=== PATIENT | male | born 1945 | race Caucasian/White ===

== ENCOUNTER 2018-08-23 11:15 | Emergency (ER) | payer MEDICARE, OTHER, SELFPAY ==
[2018-08-23 12:05] VITALS: BP 149/84; PULSE 81; RESP 16; TEMP 37; O2SAT 96
--- NOTE | 2018-08-23 13:09 | DI.RAD_ITS ---
SYMPTOMS/DIAGNOSIS: FALL ONTO OUTSTRETCHED HAND, ? DISLOCATION LEFT SHOULDER: Four views were obtained. There is a comminuted fracture of the proximal humerus with moderate angulation and moderate displacement at the fracture site. No additional fracture seen, although the glenoid labrum is not ideally visualized. No glenohumeral dislocation identified.
--- NOTE | 2018-08-23 13:09 | W.ED.GENAD ---
Discharge Plan Disposition Patient Disposition: HOME Condition: Fair Discharge Details Chief Complaint: Orthopedic Clinical Impression: Fracture, humerus closed Primary Care Provider: None,None ED Provider: Geovanna Laura Home Meds and New Rx's Prescriptions: New oxycodone 5 mg tablet 5 mg PO Q6H Qty: 7 RF: 0 Continued aspirin 325 MG tablet 1 tab PO DAILY RF: 0 simvastatin 20 MG tablet 1 tab PO DAILY RF: 0 metformin [Glucophage] 1,000 MG tablet 1 tab PO BID RF: 0 [id number] 1 EACH capsule 1 cap PO PRN PRNRF: 0 Discharge Instructions Instructions: Proximal Humerus Fracture (ED) Additional Instructions: Encourage rest, ice. Continue with sling until evaluated by orthopedics. Please call orthopedics today to schedule follow-up appointment. Oxycodone as prescribed. Please take this medication only as prescribed, keep this in a safe place. If you develop new or worsening symptoms seek care urgently once again. Referrals: Schuyler Ceja MD [ [facility] STAFF PHYSICIAN] - ([phone]) Discharge Data Discharge Date/Time-TO BE ENTERED AT DEPARTURE: 08/23/18 14:42 Medical Decision Making Patient is a 72 year old RHD male, presenting today with c/c of left shoulder pain that has been present for the past week since [facility]. Denies other injury at the time of the incdient. Has noted a lump on the anterior aspect of the left shoulder since his fall 7 days ago. Reports the pain is been persistent. He is kept the shoulder in a sling. Denies any altered sensation. Patient has never had surgery in the shoulder, no previous injury On exam, patient has large amount of ecchymosis over the left anterior upper extremity. Full range of motion the elbow and wrist. 5 out of 5 order processor strength. Patient appears to be dislocated anteriorly. Unable to range the shoulder. Plan to obtain imaging. Will give Tylenol to help with discomfort XR signfiicant for a displaced fracture of the humerus. I discussed these images with Dr. Ceja. On exam, I was concerned for palpable bony abnormality anteriorly concerning for humeral head dislocation. She requested CT for further evaluation and to ensure that the humeral head and glenoid are lining well. CT obtained and reviewed by radiologist. He advised that the humeral head and the glenoid articulating well although the fracture is quite displaced and comminuted. Discussed these findings with Dr. Ceja who advised the patient may be in a sling and follow-up with him in the office next week. Discussed these plans with the patient who is in agreement. I encouraged rest and ice to the affected area. He will be prescribed narcotics to help with his discomfort as the Tylenol and ibuprofen has not been working well for him at home. Did advise he cannot drive will take these medications. We discussed the risks associated with these medications and he did sign an opiate form. All of his questions and concerns were addressed and he is in agreement this plan HPI General Mode of arrival: ambulatory. Date/Time Provider Initiated Documentation: 08/23/18 12:57. Limitations to Documentation: no limitations. Information obtained by: patient. History of Present Illness 72 year old M presents to the emergency department with the chief complaint of left shoulder pain, described as moderate, with intensity rated at 8. Quality is described as aching, and is localized to the left and upper extremity. Patient reports no radiation. Patient started experiencing this week(s) (1) and it has been constant. Immobilization improves symptom(s), Movement worsens symptoms . Patient notes denies chest pain, cough, fever/chills, headaches, nausea/vomiting and rash. Patient did receive the following treatments prior to arrival, NSAID Related Data Home Medications Medication Instructions Recorded Confirmed aspirin 1 tab PO DAILY 03/25/14 08/23/18 [id number]-vyjqjxk-wojarnjf 1 cap PO PRN PRN 03/25/14 08/23/18 metformin [Glucophage] 1 tab PO BID 03/25/14 08/23/18 simvastatin 1 tab PO DAILY 03/25/14 08/23/18 oxycodone 5 mg PO Q6H #7 tab 08/23/18 Previous Rx's Medication Instructions Recorded oxycodone 5 mg PO Q6H #7 tab 08/23/18 Allergies Allergy/AdvReac Type Severity Reaction Status Date / Time tetracycline [Tetracycline] Allergy Severe Anaphylaxsi Unverified 08/23/18 12:07 s mussels Allergy Severe Anaphylaxsi Uncoded 08/23/18 12:07 s General Stated Complaint: Orthopedic ALEX: 4 Review of Systems Constitutional Reports as per HPI, Denies chills, Denies fever(s), Denies headache(s) and Denies weakness ENT Denies headache(s) Cardiovascular Reports as per HPI Respiratory Reports as per HPI and Denies cough Musculoskeletal Reports as per HPI and Denies tingling Integumentary/Breasts Reports as per HPI, Denies rash, Denies wounds and Reports other (ecchymosis left UE and left side of chest wall) Neurologic Denies headache(s), Denies tingling and Denies weakness [facility] Social History Smoking/Tobacco Use Status: Current-Occasional Exam Const General: cooperative, healthy appearing, comfortable, no acute distress, well developed and well groomed Nutritional Appearance: average body habitus and well nourished Orientation: alert and awake Resp Effort & Inspection: normal respiratory effort, able to speak in complete sentences and no respiratory distress Auscultation: clear to auscultation bilaterally Cardio Rate: regular rate Rhythm: regular rhythm Heart Sounds: S1 normal and S2 normal Back/Spine/Pelvis Cervical Spine: normal cervical lordosis and cervical ROM normal Thoracic/Lumbar Spine: thoracic and lumbar spine normal to inspection Skin General skin exam: ecchymosis (left anterior UE to the elbow and across anterior left chest wall) Neuro General: alert and awake Cognition: normal cognition Speech: speech normal Gait: normal gait Motor: muscle tone normal throughout Sensory Exam: no sensory deficits noted Extrem Left upper extremity: normal capillary refill and shoulder/upper arm Details: tenderness (anteriorly), swelling Location: of the proximal humerus, abnormal ROM, ecchymosis and deformity (palpable rounded anterior swelling consistent with humeral head) Location: of the proximal humerus; abnormal to inspection, inspection normal, no abrasions, no lacerations, no crepitus and no penetrating wound; abnormal to inspection (patient has deformoty to left houlder), ROM limited (unable to range shoulder ), no edema and joint enlargement noted (left shoulder) Psych Appearance: grossly normal and well kempt Mental Status: mental status grossly normal Speech and Movement: speech and movement normal Course Vital Signs Temperature 37 C 08/23/18 12:05 Pulse 81 08/23/18 12:05 Respiratory Rate 16 08/23/18 12:05 Blood Pressure 149/84 H 08/23/18 12:05 Pulse Oximetry 96 08/23/18 12:05 Temperature 37 C 08/23/18 12:05 Temperature Source Skin 08/23/18 12:05 Pulse 81 08/23/18 12:05 Respiratory Rate 16 08/23/18 12:05 Respiratory Effort Non-Labored 08/23/18 12:05 Blood Pressure 149/84 H 08/23/18 12:05 Blood Pressure Position Sitting 08/23/18 12:05 Pulse Oximetry 96 08/23/18 12:05 Pain Level 8 08/23/18 12:05
[2018-08-23] MEDS: Acetaminophen 500 MG TAB 1000 MG PO (13:10)
--- NOTE | 2018-08-23 13:12 | ED.GENADUL_ITS ---
Discharge Plan Disposition Patient Disposition: HOME Condition: Fair Discharge Details Chief Complaint: Orthopedic Clinical Impression: Fracture, humerus closed Primary Care Provider: None,None ED Provider: Geovanna Laura Home Meds and New Rx's Prescriptions: New oxycodone 5 mg tablet 5 mg PO Q6H Qty: 7 RF: 0 Continued aspirin 325 MG tablet 1 tab PO DAILY RF: 0 simvastatin 20 MG tablet 1 tab PO DAILY RF: 0 metformin [Glucophage] 1,000 MG tablet 1 tab PO BID RF: 0 [id number]-[id number]-uufywihk 1 EACH capsule 1 cap PO PRN PRNRF: 0 Discharge Instructions Instructions: Proximal Humerus Fracture (ED) Additional Instructions: Encourage rest, ice. Continue with sling until evaluated by orthopedics. Please call orthopedics today to schedule follow-up appointment. Oxycodone as prescribed. Please take this medication only as prescribed, keep this in a safe place. If you develop new or worsening symptoms seek care urgently once again. Referrals: Schuyler Ceja MD [ [facility] STAFF PHYSICIAN] - ([phone]) Discharge Data Discharge Date/Time-TO BE ENTERED AT DEPARTURE: 08/23/18 14:42 Medical Decision Making Patient is a 72 year old RHD male, presenting today with c/c of left shoulder pain that has been present for the past week since [facility]. Denies other injury at the time of the incdient. Has noted a lump on the anterior aspect of the left shoulder since his fall 7 days ago. Reports the pain is been persistent. He is kept the shoulder in a sling. Denies any altered sensation. Patient has never had surgery in the shoulder, no previous injury On exam, patient has large amount of ecchymosis over the left anterior upper extremity. Full range of motion the elbow and wrist. 5 out of 5 hourly associate strength. Patient appears to be dislocated anteriorly. Unable to range the shoulder. Plan to obtain imaging. Will give Tylenol to help with discomfort XR signfiicant for a displaced fracture of the humerus. I discussed these images with Dr. Ceja. On exam, I was concerned for palpable bony abnormality anteriorly concerning for humeral head dislocation. She requested CT for further evaluation and to ensure that the humeral head and glenoid are lining well. CT obtained and reviewed by radiologist. He advised that the humeral head and the glenoid articulating well although the fracture is quite displaced and comminuted. Discussed these findings with Dr. Ceja who advised the patient may be in a sling and follow-up with him in the office next week. Discussed these plans with the patient who is in agreement. I encouraged rest and ice to the affected area. He will be prescribed narcotics to help with his discomfort as the Tylenol and ibuprofen has not been working well for him at home. Did advise he cannot drive will take these medications. We discussed the risks associated with these medications and he did sign an opiate form. All of his questions and concerns were addressed and he is in agreement this plan HPI General Mode of arrival: ambulatory . Date/Time Provider Initiated Documentation: 08/23/18 12:57 . Limitations to Documentation: no limitations . Information obtained by: patient . History of Present Illness 72 year old M presents to the emergency department with the chief complaint of left shoulder pain, described as moderate, with intensity rated at 8. Quality is described as aching, and is localized to the left and upper extremity. Patient reports no radiation. Patient started experiencing this week(s) (1) and it has been constant. Immobilization improves symptom(s), Movement worsens symptoms . Patient notes denies chest pain, cough, fever/chills, headaches, nausea/vomiting and rash. Patient did receive the following treatments prior to arrival, NSAID Related Data Home Medications Medication Instructions Recorded Confirmed aspirin 1 tab PO DAILY 03/25/14 08/23/18 [id number]-xccjunt-[id number] 1 cap PO PRN PRN 03/25/14 08/23/18 metformin [Glucophage] 1 tab PO BID 03/25/14 08/23/18 simvastatin 1 tab PO DAILY 03/25/14 08/23/18 oxycodone 5 mg PO Q6H #7 tab 08/23/18 Previous Rx's Medication Instructions Recorded oxycodone 5 mg PO Q6H #7 tab 08/23/18 Allergies Allergy/AdvReac Type Severity Reaction Status Date / Time tetracycline [Tetracycline] Allergy Severe Anaphylaxsi Unverified 08/23/18 12:07 s mussels Allergy Severe Anaphylaxsi Uncoded 08/23/18 12:07 s General Stated Complaint: Orthopedic ALEX: 4 Review of Systems Constitutional Reports as per HPI, Denies chills, Denies fever(s), Denies headache(s) and Denies weakness ENT Denies headache(s) Cardiovascular Reports as per HPI Respiratory Reports as per HPI and Denies cough Musculoskeletal Reports as per HPI and Denies tingling Integumentary/Breasts Reports as per HPI, Denies rash, Denies wounds and Reports other (ecchymosis left UE and left side of chest wall) Neurologic Denies headache(s), Denies tingling and Denies weakness [facility] Social History Smoking/Tobacco Use Status: Current-Occasional Exam Const General: cooperative, healthy appearing, comfortable, no acute distress, well developed and well groomed Nutritional Appearance: average body habitus and well nourished Orientation: alert and awake Resp Effort & Inspection: normal respiratory effort, able to speak in complete sentences and no respiratory distress Auscultation: clear to auscultation bilaterally Cardio Rate: regular rate Rhythm: regular rhythm Heart Sounds: S1 normal and S2 normal Back/Spine/Pelvis Cervical Spine: normal cervical lordosis and cervical ROM normal Thoracic/Lumbar Spine: thoracic and lumbar spine normal to inspection Skin General skin exam: ecchymosis (left anterior UE to the elbow and across anterior left chest wall) Neuro General: alert and awake Cognition: normal cognition Speech: speech normal Gait: normal gait Motor: muscle tone normal throughout Sensory Exam: no sensory deficits noted Extrem Left upper extremity: normal capillary refill and shoulder/upper arm Details: tenderness (anteriorly), swelling Location: of the proximal humerus, abnormal ROM, ecchymosis and deformity (palpable rounded anterior swelling consistent with humeral head) Location: of the proximal humerus; abnormal to inspection, inspection normal, no abrasions, no lacerations, no crepitus and no penetrating wound; abnormal to inspection (patient has deformoty to left houlder), ROM limited (unable to range shoulder ), no edema and joint enlargement noted (left shoulder) Psych Appearance: grossly normal and well kempt Mental Status: mental status grossly normal Speech and Movement: speech and movement normal Course Vital Signs Temperature 37 C 08/23/18 12:05 Pulse 81 08/23/18 12:05 Respiratory Rate 16 08/23/18 12:05 Blood Pressure 149/84 H 08/23/18 12:05 Pulse Oximetry 96 08/23/18 12:05 Temperature 37 C 08/23/18 12:05 Temperature Source Skin 08/23/18 12:05 Pulse 81 08/23/18 12:05 Respiratory Rate 16 08/23/18 12:05 Respiratory Effort Non-Labored 08/23/18 12:05 Blood Pressure 149/84 H 08/23/18 12:05 Blood Pressure Position Sitting 08/23/18 12:05 Pulse Oximetry 96 08/23/18 12:05 Pain Level 8 08/23/18 12:05
--- NOTE | 2018-08-23 13:50 | DI.CT_ITS ---
SYMPTOMS/DIAGNOSIS: ASSESS PLACEMENT OF FRACTURED HUMERAL HEAD LEFT SHOULDER CT: CT examination of the shoulder was performed according to the usual protocol. Visualized portions of the left lung are clear. There is a comminuted proximal humeral fracture with marked impaction and moderate displacement of multiple fracture fragments. No glenohumeral dislocation seen. No additional fracture identified.
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
== END 2018-08-23 14:42 | disposition home or self-care (01) ==
PROVIDERS: Emergency Provider Physician Assistant
DX: S42.292A Other displaced fracture of upper end of left humerus, initial encounter for closed fracture (principal); W01.0XXA Fall on same level from slipping, tripping and stumbling without subsequent striking against object, initial encounter
CPT/HCPCS: 23600; 73030; 73200; L3650

== ENCOUNTER 2018-10-06 09:42 | Observation (INO) | payer MEDICARE, OTHER, SELFPAY ==
[2018-10-06] VITALS (24 sets, daily range): BP systolic 150–183; BP diastolic 73–97; PULSE 75–90; RESP 14–23; TEMP 36.5–37; O2SAT 94–98
--- NOTE | 2018-10-06 10:05 | DI.CT_ITS ---
SYMPTOM/DIAGNOSIS: DIZZY, WEAK, UNSTEADY, ? STROKE NONCONTRAST HEAD CT: Comparison is made with 03/25/14. There is mild atrophy consistent with the patient's age. 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 No acute hemorrhage, acute infarct or mass is identified. There is no skull fracture. The visualized portions of the sinuses and mastoid air cells appear clear. IMPRESSION: No acute abnormality.
[2018-10-06 10:55] LABS: BE (Venous) 0.5 mmol/L (-3-3); HCO3 (Venous) 25 mmol/L (22-28); O2 Sat (Venous) 62 % (70-80); TCO2 (Venous) 23 mmol/L (22-29); pCO2 (Venous) 39 mm/Hg (34-47); pH (Venous) 7.42 (7.32-7.43); pO2 (Venous) 33 mm/Hg (28-44)
[2018-10-06 10:58] LABS: Abs Immature Grans 0.02 k/cumm (0.0-0.09); Absolute Basophil Count 0.02 k/cumm (0.0-0.2); Absolute Eosinophil Count 0.05 k/cumm (0.0-0.7); Absolute Lymphocyte Count 1.34 k/cumm (1.2-3.4); Absolute Monocyte Count 0.49 k/cumm (0.11-0.7); Absolute Neutrophil Count 5.38 k/cumm (1.2-6.7); Basophils % 0.3; Eosinophils % 0.7; HCT 37.9 % (40.0-50.0); HGB 12.7 g/dL (13.5-17.5); Immature Grans % 0.3; Lymphocytes % 18.4; Mean Corp. HGB Concentration 33.5 g/dL (32.0-36.0); Mean Corpuscular Hemoglobin 32.4 pg (27.0-33.0); Mean Corpuscular Volume 96.7 fL (80-95); Mean Platelet Volume 9.9 fL (8.0-11.0); Monocytes % 6.7; Neutrophils % 73.6; Platelet Count 352 x1000/uL (130-400); RBC 3.92 m/cumm (4.50-6.00); RBC Distribution Width 13.1 % (11.8-14.1)
[2018-10-06 11:07] LABS: Ammonia 17 umol/L (11-32)
[2018-10-06 11:10] LABS: PTT Activated 22.1 sec (21.0-31.4); Prothrombin Time 9.9 sec (9.3-11.0)
[2018-10-06 11:14] LABS: ALT 35 U/L (12-78); AST 26 U/L (15-37); Albumin 4.1 g/dL (3.4-5.0); Alkaline Phosphatase 92 U/L (46-116); BUN 18 mg/dL (7-18); Bilirubin, Total 0.5 mg/dL (0.2-1.0); CREATININE 1.16 mg/dL (0.70-1.30); Calcium 10.1 mg/dL (8.5-10.1); Chloride 102 mmol/L (98-107); Glucose 165 mg/dL (70-100); Potassium 3.8 mmol/L (3.5-5.1); Sodium 140 mmol/L (136-145); Total Protein 8.3 g/dL (6.4-8.2)
[2018-10-06 11:21] LABS: Acetaminophen 3 ug/mL (10-30); ETHANOL BLOOD < 3.0 mg/dL (<3); Salicylate 7.2 mg/dL (2.8-20.0); Troponin I < 0.02 ng/mL (0.00-0.06)
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
--- NOTE | 2018-10-06 13:32 | CMPROGNOTE_ITS ---
Care Management Progress Note 10/06-Alejo was brought to the emergency department today by his friend Galdino. Alejo lives alone in [place]. Sees Dr. Lora at the [facility]. Alejo has no services, no assisted devices and no lifeline. He is normally independent, drives, cares for his dog and his home. Has wood heat which he worries about when he is not there. Alejo has no advance directives. I discussed advance directives with Alejo who states he has them at the [facility]. Called the [facility] and spoke with Sulma Gomez (who is covering for Estee Ma) [phone], who stated that Alejo does not have advance directives on file. This CM gave Alejo a packet to review if he should want to complete them. Alejo is a 40% disabled and has Medicare A&B. Alejo has two daughters, one which lives in [facility] and daughter Dina, who resides in [facility]. Met with Alejo. Alejo states that he has had stroke like symptoms since Thursday evening. He was at his friend Galdino's house and was starting to have slurred speech. Galdino tried to convince him to go the hospital but he wouldn't. Alejo stated that he only had slurred speech, nothing else was bothering him. Alejo states that he has had some balance problems and the slurred speech has continued. Alejo stated that [facility] [place] [facility] and spoke with Irasema YUEN. Alejo told her about the above and Irasema said he needed to go to the hospital. Irasema had actually called [facility] to transport but once [facility] was at Alejo's [place], he refused. This morning, Galdino was at Alejos [place] and convinced him to come to the hospital to be checked out. Dr. Mortensen has spoke with the [facility] and they have no beds. Alejo will be admitted observation status to [facility]. Alejo had broken his humerus seven weeks ago, came to the emergency room. He was supposed to f/u with Dr. Ceja but was not able to get in so he went to see ortho at the [facility]. Currently he does not have his arm in a sling and states he can not move it away from his body. Alejo stated that he was supposed to go to physical therapy but he has not been because he can not move his arm away from his body. He shows this CM that he can move his arm from the elbow down. Friend Galdino is making sure that the dog is cared for as well as the wood heat. Alejo has neighbors that will help. Currently Alejo's daughter Dina, who resides in [facility], is here with him. Alejo has this CM's contact information if further assistance is needed.
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
[2018-10-06] MEDS: Atorvastatin 40 MG TAB PO (20:15)
[2018-10-06] MEDS: Normal Saline Flush 10 ML SYR IVP (20:16)
[2018-10-06] MEDS: traMADol 50 MG TAB PO (20:16)
[2018-10-07] VITALS (8 sets, daily range): BP systolic 161–184; BP diastolic 60–88; PULSE 63–82; RESP 18–20; TEMP 36.3–37; O2SAT 95–99
--- NOTE | 2018-10-07 07:35 | DI.US_ITS ---
SYMPTOM/DIAGNOSIS: ? CVA, RT FACIAL DROOP, GAIT DISTURBANCE CAROTID ULTRASOUND: Duplex evaluation of the carotid circulation was performed according to the usual protocol. There is moderate atheromatous plaque formation in the region of the carotid bifurcations bilaterally. Flow velocities in common internal and external carotid arteries are within normal limits bilaterally. There is bilateral antegrade vertebral flow. CONCLUSION: No evidence of a hemodynamically significant carotid stenosis.
[2018-10-07 08:21] LABS: Cholesterol 160 mg/dL (50-200); HDL Cholesterol 45 mg/dL (40-60); LDL CHOLESTEROL 89 mg/dL (<100); Triglyceride 113 mg/dL (30-150)
[2018-10-07 08:23] LABS: Vitamin B12 232 pg/mL (193-986)
--- NOTE | 2018-10-07 09:00 | MERGE_ITS ---
*[facility]* *[facility]* [address] [place] [address] Date of study: 10/07/2018 Transthoracic Echocardiography M-mode, complete 2D, complete spectral Doppler, and color Doppler *STUDY CONCLUSIONS* Impressions: Insufficient image quality to find shunt. Summary: 1. Left ventricle: The cavity size was normal. Wall thickness was increased in a pattern of mild LVH. Systolic function was normal. The estimated ejection fraction was 60-65%. Wall motion was normal; there were no regional wall motion abnormalities. 2. Aortic valve: There was trivial regurgitation. 3. Mitral valve: Mildly calcified annulus. Mildly thickened leaflets. There was mild regurgitation. 4. Right ventricle: The cavity size was normal. Wall thickness was normal. Systolic function was normal. 5. Pulmonic valve: Peak gradient (S): 4mm Hg. 6. Pulmonary arteries: Pulmonary systolic pressure was at the upper limits of normal. PA peak pressure: 32mm Hg (S). *PATIENT PRESENTATION* Height: 180.3cm ((71in) ) S/D Pressure: 184 / 64 Weight: 79.8kg ((175.6lb) ) BSA: 2.01m^2 Test start time: 09:00 AM. Test stop time: 10:30 AM. PERFORMING Unknown PERFORMING [facility] CONSULTING None, None UPSETTER SETTER UP RT Олег (R)(CT), CS ORDERING Trista Argueta REFERRING Trista Argueta *PROCEDURE DATA* Procedure information: The patient was identified by two identifiers. This study was interpreted by [facility]. Pertinent images and digital data are archived for permanent storage and are available for subsequent review. No prior study was available for comparison. Study status: Routine. Transthoracic echocardiography. M-mode, complete 2D, complete spectral Doppler, and color Doppler. A Transthoracic Echocardiogram was performed. Scanning was performed from the parasternal, apical, subcostal, and suprasternal notch acoustic windows. Images were obtained using an [id number] cardiac ultrasound machine. Image quality was fair. Intravenous contrast (normal saline) was administered by WILFRID kaur to enhance delineation of left ventricular endocardial borders. Prior to administration at least two (2) contiguous segments of the left ventricular border were not visualized. A total amount of 30ml of saline was used. Study completion: The patient tolerated the procedure well. History: PMH: ? CVA facial droop gait disturbance. *CARDIAC ANATOMY* Left ventricle: The cavity size was normal. Wall thickness was increased in a pattern of mild LVH. Systolic function was normal. The estimated ejection fraction was 60-65%. Wall motion was normal; there were no regional wall motion abnormalities. Some parameters suggest diastolic dysfunction. Aortic valve: Trileaflet; mildly thickened, mildly calcified leaflets. Mobility was not restricted. Doppler: Transvalvular velocity was within the normal range. There was no stenosis. There was trivial regurgitation. VTI ratio of LVOT to aortic valve: 0.78. Valve area (VTI): 2.4cm^2. Indexed valve area (VTI): 1.2cm^2/m^2. Peak velocity ratio of LVOT to aortic valve: 0.72. Valve area (Vmax): 2.2cm^2. Indexed valve area (Vmax): 1.1cm^2/m^2. Mean velocity ratio of LVOT to aortic valve: 0.77. Valve area (Vmean): 2.3cm^2. Indexed valve area (Vmean): 1.2cm^2/m^2. Mean gradient (S): 5.1mm Hg. Peak gradient (S): 9.8mm Hg. Aorta: Aortic root: The aortic root was at upper normal limits. Ascending aorta: The ascending aorta was at upper normal limits. Aortic arch: The aortic arch was normal in size. Mitral valve: Mildly calcified annulus. Mildly thickened leaflets. Mobility was not restricted. Doppler: Transvalvular velocity was within the normal range. There was no evidence for stenosis. There was mild regurgitation. Valve area by pressure half-time: 2.2cm^2. Indexed valve area by pressure half-time: 1.1cm^2/m^2. Left atrium: The atrium was normal in size. Right ventricle: The cavity size was normal. Wall thickness was normal. Systolic function was normal. Pulmonic valve: Poorly visualized. Doppler: Transvalvular velocity was within the normal range. There was no evidence for stenosis. There was no significant regurgitation. Peak gradient (S): 4mm Hg. Tricuspid valve: Structurally normal valve. Doppler: Transvalvular velocity was within the normal range. There was no evidence for stenosis. There was mild regurgitation. Pulmonary artery: Poorly visualized. Pulmonary systolic pressure was at the upper limits of normal. Right atrium: The atrium was normal in size. Pericardium: There was no pericardial effusion. Systemic veins: Inferior vena cava: Well visualized. The vessel was patent and normal in size. The respirophasic diameter changes were in the normal range (greater than or equal to 50%), consistent with normal central venous pressure. Baseline ECG: Normal sinus rhythm. Measurements Left ventricle Value Reference LV ID, ED, PLAX 4.0 cm 3.5 - 6.0 LV ID, ES, PLAX 2.8 cm 2.1 - 4.0 LV PW thickness, ED, PLAX 1.2 cm LV end-diastolic volume, 1-p A2C 68 ml LV ejection fraction, 1-p A2C 59 % LV end-diastolic volume, 1-p A4C 87 ml LV ejection fraction, 1-p A4C 66 % LV e', lateral 0.062 m/sec LV E/e', lateral 10 LV e', medial 0.054 m/sec LV E/e', medial 11 LV e', average 0.058 m/sec LV E/e', average 10 Ventricular septum Value Reference IVS thickness, ED, PLAX 1.2 cm LVOT Value Reference LVOT ID, A-P 2.0 cm LVOT area 3 cm^2 LVOT peak velocity, S 1.13 m/sec LVOT mean velocity, S 0.82 m/sec LVOT VTI, S 24.3 cm LVOT peak gradient, S 5.1 mm Hg LVOT mean gradient, S 3 mm Hg Stroke volume (SV), LVOT DP 73 ml Stroke index (SV/bsa), LVOT DP 37 ml/m^2 Aortic valve Value Reference Aortic valve peak velocity, S 1.6 m/sec Aortic valve mean velocity, S 1.08 m/sec Aortic valve VTI, S 31.0 cm Aortic mean gradient, S 5.1 mm Hg Aortic peak gradient, S 9.8 mm Hg VTI ratio, LVOT/AV 0.78 Aortic valve area, VTI 2.4 cm^2 Velocity ratio, peak, LVOT/AV 0.72 Aortic valve area, peak velocity 2.2 cm^2 Velocity ratio, mean, LVOT/AV 0.77 Aortic valve area, mean velocity 2.3 cm^2 Aortic valve area/bsa, mean velocity 1.2 cm^2/m^2 Aorta Value Reference Aortic root ID, ED 3.6 cm Ascending aorta ID, A-P, S 3.7 cm Aortic arch ID, innominate-LCCA 2.6 cm 2.0 - 3.6 Left atrium Value Reference LA ID, A-P, ES 4.1 cm LA ID/bsa, A-P 2.0 cm/m^2 <=2.2 LA area, ES, A4C 21.8 cm^2 8.8 - 23.4 LA area, ES, A2C 19 cm^2 LA volume/bsa, ES, 1-p A4C 35 ml/m^2 LA volume, ES, 2-p 60 ml LA volume/bsa, ES, 2-p 30 ml/m^2 LA/aortic root ratio 1.11 Mitral valve Value Reference Mitral E-wave peak velocity 0.61 m/sec Mitral A-wave peak velocity 0.96 m/sec Mitral deceleration time (H) 347 ms 150 - 230 Mitral pressure half-time 101 ms Mitral E/A ratio, peak 0.63 Mitral valve area, PHT, DP 2.2 cm^2 Pulmonary veins Value Reference Pulmonary vein peak velocity, S 0.71 m/sec Pulmonary vein peak velocity, D 0.41 m/sec Pulmonary vein velocity ratio, peak, 1.75 S/D Pulmonary vein A-wave reversal peak 0.52 m/sec velocity Pulmonary vein A-wave reversal 138 ms duration Pulmonary arteries Value Reference PA pressure, S, DP (H) 32 mm Hg <=30 Tricuspid valve Value Reference Tricuspid regurg peak velocity 2.5 m/sec Tricuspid peak RV-RA gradient 25.5 mm Hg Right atrium Value Reference RA area, ES, A4C 14.5 cm^2 8.3 - 19.5 Systemic veins Value Reference Estimated CVP 10 mm Hg Right ventricle Value Reference RV pressure, S, DP (H) 36 mm Hg <=30 Pulmonic valve Value Reference Pulmonic peak gradient, S 4 mm Hg Legend: (L) and (H) brad values outside specified reference range. I have personally reviewed the images and have reviewed and edited the reported findings. Electronically signed by Pascual Cohen 10/07/2018 21:31
--- NOTE | 2018-10-07 09:26 | PHARADMIT ---
Admission Pharmacy Clinical Review STROKE Code Status DNR/DNI Current Weight Wgt- 80.2 kg Renally Cleared and Narrow Therapeutic Index Meds CrCl~ 60 mL/min Meds-OK QTc Value / Action Taken QTc-424 na BP Control, Fever BP- 184/64 Tmax- 36.8C Electrolytes reviewed Na- 140 K+3.8 DVT Prophylaxis ASA Opiate Usage / Scheduled Bowel Regimen Ordered No Yes Plt/SCr for Heparin / Enoxaparin Plts-352 SCr- 1.16 INR for Warfarin inr-1.0 H/H stable, WBC/Bands H&H- 12.7/37.9 WBC- 7.30 Antibiotic appropriateness NONE Cultures and Sensitivities NONE Surgical ABX d/c within 24 hr NA DM control / Insulin Dosing BG- 165 HgA1c- 7.0% Aspart Heart Failure (Check EF%) (ARIELLE's, B-Block, Diuretics) none IV to PO Switch No Home Meds Reviewed Yes Home Meds Not Ordered Fiorinal, Metformin, Zocor, Naproxen Comments
[2018-10-07 10:00] LABS: HCT 35.5 % (40.0-50.0); HGB 11.7 g/dL (13.5-17.5); Mean Corpuscular Hemoglobin 32.1 pg (27.0-33.0); Mean Corpuscular Volume 97.3 fL (80-95); Mean Platelet Volume 10.2 fL (8.0-11.0); Platelet Count 322 x1000/uL (130-400); RBC 3.65 m/cumm (4.50-6.00); RBC Distribution Width 13.2 % (11.8-14.1); White Blood Cell Count 6.08 k/cumm (4.4-10.8)
[2018-10-07 10:09] LABS: Anion Gap 10.3 mmol/L (3-11); BUN 23 mg/dL (7-18); CO2 24.7 mmol/L (21.0-32.0); CREATININE 1.05 mg/dL (0.70-1.30); Calcium 9.6 mg/dL (8.5-10.1); Chloride 107 mmol/L (98-107); Glucose 164 mg/dL (70-100); Potassium 3.8 mmol/L (3.5-5.1); Sodium 142 mmol/L (136-145)
[2018-10-07 10:10] LABS: Magnesium 1.9 mg/dL (1.8-2.4)
[2018-10-07] MEDS: Normal Saline Flush 10 ML SYR IVP (10:20)
[2018-10-07] MEDS: traMADol 50 MG TAB PO (10:47)
[2018-10-07] MEDS: Thiamine 100 MG TAB PO (10:47)
[2018-10-07] MEDS: Aspirin 325 MG TAB PO (10:47)
[2018-10-07] MEDS: Docusate Sodium 100 MG CAP PO (11:05)
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
--- NOTE | 2018-10-07 11:58 | DI.MRI_ITS ---
SYMPTOMS/DIAGNOSIS: RIGHT FACIAL DROOP, GAIT DISTURBANCE, ? CEREBROVASCULAR ACCIDENT MRI ANGIOGRAPHY, [place] OF [place]: MR angiography of the region of the [place] was performed according to the usual protocol. The basilar artery appears intact. Posterior cerebral arteries show no evidence of focal aneurysm, stenosis or dissection. Internal carotid arteries appear intact. Anterior cerebral and middle cerebral arteries appear intact with no evidence of aneurysm, stenosis or dissection. CONCLUSION: Negative [place] MR angiography. BRAIN MRI: MR angiography of the brain was performed according to the usual protocol. There is moderate to severe generalized cerebral atrophy. There are prominent periventricular white matter signal changes consistent with microvascular ischemic changes. There are small bilateral lacunar infarcts and there is a focal infarct in the cesar radiata superior to the right lateral ventricle, which appears old. Note is made of an area of abnormal signal corresponding to the posterior limb of the internal capsule on the left. This also corresponds to a predominantly linear area of diffusion restriction seen on diffusion weighted imaging with matching decreased signal on ADC mapping. The findings as described are consistent with acute infarction. Susceptibility weighted imaging shows no evidence of intracranial hemorrhage. No other focal areas of infarction seen. The orbital and temporal bone structures appear intact, as does the pituitary. CONCLUSION: Marked cerebral atrophy and chronic microvascular ischemic changes. Acute/subacute infarct on the left, predominantly involving the posterior limb of the internal capsule and associated periventricular white matter in left temporal lobe.
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
--- NOTE | 2018-10-07 12:27 | OT.INIE ---
Occupational Therapy Notes Inpatient Occupational Therapy Evaluation Date: 10/07/18 Referring Doctor:Lorna Garcia NP OT Orders: ? CVA, (R) facial droop, gait disturbance Precautions: Standard, fall PATIENT PROFILE/ADMITTING DIAGNOSIS: Pt is a 72 year old male who was seen in the ER on 10/06/18 for CVA/TIA. 4 days prior to this pt had symptoms of slurring speech and facial droop but refused to go to the ER at this time. Past Medical History: Hx Lymphoma, hyperlipidemia, radiation burn, diabetes, h/o lymph node excision Social History/Home Situation: Pt lives alone in a private home. He has daughters and the closest one is 20 miles away. He reports that prior to CVA he was (I) all ADLs/IADLs. He has a wood stove for heat and a dog which is currently being taken care of his neighbor. His baseline for bathing is lying in the bathtub, he does not utilize his shower at all, he reports that he performs grooming standing at his sink, he brings in his own wood and was (I) in his dressing routines. He does not use any walking devices. Equipment owned/DME: None per pt report. SUBJECTIVE: Pt was lying in bed when OT arrived. He reports that he has a busy day with lots of tests to be performed on him but he feels that he is going to go home after the tests are performed because he can do everything on his own. Pt was agreeable to OT session. OBJECTIVE: General Observation: Pt was upset about slurring of speech and he notes that his (R) UE is more stiff today than it was yesterday. Pain behaviors noted with any movement of (L) UE. Increased tone in (R) UE with AROM. Mental Status: A&Ox3 Pain: c/o pain in (L) UE due to humerus fx on 08/23/18 ROM: RUE AROM WNL slight tone noted particularly with elbow flexion and extension L UE NT due to (L) humerus fx which pt hold in 90* adducted position due to increased pain. STRENGTH: RUE 4/5 shoulder flexion, 3+/5 elbow, bar staff is weak LUE NT due to humerus fx and pts pain FUNCTIONAL MOBILITY/ADLS: Transfers performed with SYRUP MAKER COOK when going down to testing after OT consult. Supine-sit (I) Sit-Stand SBA Bed-Chair CGA DRESSING Dressing LE Sitting on side of the bed, pt was unable to don and doff (B) socks due to decreased functional mobility of (R) arm with decreased fine and gross motor control. With mod-max (A) pt was able to perform this. Mod vc required for leg movement during task. EATING Sitting in bed (I) BALANCE: Static sitting Normal Dynamic Sitting Good SPECIAL TESTS: Daily Activity Limitations Standardized Measure [facility] AM -PAC ?6 clicks? Daily Activity Inpatient Short Form: Raw score: 15 Standardized score: 34.69 CMS score: 56.46% CMS modifier: CK INFORMED CONSENT/EDUCATION: Pt instructed in purpose of OT Consult and plan of care. ASSESSMENT: Patient is a 72-year-old male referred to occupational therapy services with diagnosis of CVA. Patient presents with clinical signs and symptoms consistent with dx, as demonstrated by the following impairment level findings: Increased pain in (L) UE, weakness in (R) UE due to CVA, decreased functional AROM of (B) UE, inability to perform functional lifting during ADLs/IADLs. Impairments are contributing to the following functional limitations: Decreased UE function in (B) UE, inability to perform ADLs/IADLs due to (B) UE arm function and pain in (L) UE, not able to safely carry wood to heat his home. Decreased gross and fine motor control of UE. [facility] but it is unclear on how fx is healing at this time. OT recommends that pt go to SNF when medically discharged per MD. Pt is not receptive to doing anything but returning home as he reported to OT, I plan on going home after they run all the tests today. Due to pts inability to perform dressing routine and the fact that his baseline in lying in the bathtub, I do not feel that pt will be able to perform these in a safe manner. If pt does return home OT highly recommends OT to address pts home and ADL routines in his living environment. AMPAC score 15, CMS score 56.46% Patient is assessed as a high [id number] complexity based on the following: History: See Above Examination: See Above Presentation: Evolving Decision Making: AMPAC score 15, CMS score 56.46% GOALS Goals x1 week in hospital setting. 1. Dressing- In sitting position pt will be able to perform LE dressing and (B) socks (I) with ideal technique for one handed techniques. -Pt will be able to (I) don and doff shirt in the sitting position. 2. Bathing- Pt will demonstrate safe body mechanics with transferring in and out of tub/shower combination for bathing routine. PLAN OF CARE/TREATMENT PLAN: 1x/day, 5 days/ week x 1week Initiate Occupational Therapy Services for bathing, dressing, grooming, toileting, eating, transfer training. DISCHARGE RECOMMENDATIONS OT does not feel that pt will be able to perform ALDs/IADLs safely at home, at this time OT does recommend SNF for rehabilitation to increase pts (I) in ADLs. If pt does return home OT recommends that pt have OT. TREATMENT TIME/MINUTES/CODES [id number], 30 minutes (08:30) Elise Hough OTR/[facility]
--- NOTE | 2018-10-07 12:32 | INITIAL_ITS ---
Care Management Initial Assess REASON FOR HOSPITALIZATION:: Stroke PAST MEDICAL HISTORY/PAST SURGICAL HISTORY:: Mr. Stephens is a 72-year-old man with a history of diabetes, on metformin, a remote history of lymphoma with lymph node excision and radiation therapy, hyperlipidemia and recent left humerus fracture (seen in the emergency department on 08/23/2018), been followed by [place] and treated with sling. Diabetes, Lymphoma(Lymph Node Excision), Hyperlipidemia, Radiation Burn, PREVIOUS FUNCTIONAL STATUS/SOCIAL/FAMILY SUPPORTS:: Alejo resides alone in [place], [place]. He has a friend, Galdino who helps with some ADLs since Alejo was injured a few weeks ago. Galdino is caring for Alejo's dog and tending his wood heat. Alejo reportedly has neighbors that will help as well. Alejo has two daughters, Thao who resides in [facility] and Dina, who resides in [facility]. CURRENT FUNCTIONAL STATUS:: Alejo struggled with following directives including notifying staff when he wanted to ambulate as he is a fall risk. He also appeared to lack insight with OT when stating he could put on his socks fine (which he then could not) and PT when reporting he could do stairs fine (and then was unable). These were frustrating events for Alejo who experienced stroke like symptoms since Thursday, and has a fractured (L) humerus from 08/23/19. ADVANCE DIRECTIVES:: POA: Thao Arroyo. AD Document to be processed this admission. Has patient been provided with information about the portal?: Yes Did the patient sign up for the portal?: No CODE STATUS:: DNR/DNI INSURANCE COVERAGE / FINANCIAL ISSUES:: Alejo is a 40% disabled and has Medicare A&B. CURRENT HOME/COMMUNITY SERVICES/EQUIPMENT:: [facility] (who is covering for Estee Ma) [phone] ext [phone]. PRIMARY CARE PHYSICIAN:: [facility] POTENTIAL DISCHARGE NEEDS:: Consults: Speech/PT/OT/Neuro/Ortho, MRI, ECHO, Carotid Ultrasound, follow up appointments, [facility] notification-fax clincial information for follow up. Process AD paperwork. PATIENT/FAMILY EDUCATION NEEDS:: Review of discharge instructions, review community based supports, discuss self care needs upon discharge; [employer]. ANTICIPATED BARRIERS TO DISCHARGE:: None identified. TRANSPORTATION:: Via private vehicle with a friend. PLAN:: Alejo will have a work up of his symptoms, including imaging and mulitple disciplinary consults to inform discharge needs. [facility] and CM will provide updated clinical information to the [facility]. CM will continue to follow; Alejo will transport via private vehicle with his friend.
--- NOTE | 2018-10-07 12:35 | OTIE_ITS ---
Occupational Therapy Notes Inpatient Occupational Therapy Evaluation Date: 10/07/18 Referring Doctor:Lorna Garcia NP OT Orders: ? CVA, (R) facial droop, gait disturbance Precautions: Standard, fall PATIENT PROFILE/ADMITTING DIAGNOSIS: Pt is a 72 year old male who was seen in the ER on 10/06/18 for CVA/TIA. 4 days prior to this pt had symptoms of slurring speech and facial droop but refused to go to the ER at this time. Past Medical History: Hx Lymphoma, hyperlipidemia, radiation burn, diabetes, h/o lymph node excision Social History/Home Situation: Pt lives alone in a private home. He has daughters and the closest one is 20 miles away. He reports that prior to CVA he was (I) all ADLs/IADLs. He has a wood stove for heat and a dog which is currently being taken care of his neighbor. His baseline for bathing is lying in the bathtub, he does not utilize his shower at all, he reports that he performs grooming standing at his sink, he brings in his own wood and was (I) in his dressing routines. He does not use any walking devices. Equipment owned/DME: None per pt report. SUBJECTIVE: Pt was lying in bed when OT arrived. He reports that he has a busy day with lots of tests to be performed on him but he feels that he is going to go home after the tests are performed because he can do everything on his own. Pt was agreeable to OT session. OBJECTIVE: General Observation: Pt was upset about slurring of speech and he notes that his (R) UE is more stiff today than it was yesterday. Pain behaviors noted with any movement of (L) UE. Increased tone in (R) UE with AROM. Mental Status: A&Ox3 Pain: c/o pain in (L) UE due to humerus fx on 08/23/18 ROM: RUE AROM WNL slight tone noted particularly with elbow flexion and extension L UE NT due to (L) humerus fx which pt hold in 90* adducted position due to increased pain. STRENGTH: RUE 4/5 shoulder flexion, 3+/5 elbow, mold maker helper is weak LUE NT due to humerus fx and pts pain FUNCTIONAL MOBILITY/ADLS: Transfers performed with DIRECTOR OF PRECLINICAL RESEARCH when going down to testing after OT consult. Supine-sit (I) Sit-Stand SBA Bed-Chair CGA DRESSING Dressing LE Sitting on side of the bed, pt was unable to don and doff (B) socks due to decreased functional mobility of (R) arm with decreased fine and gross motor control. With mod-max (A) pt was able to perform this. Mod vc required for leg movement during task. EATING Sitting in bed (I) BALANCE: Static sitting Normal Dynamic Sitting Good SPECIAL TESTS: Daily Activity Limitations Standardized Measure [facility] AM -PAC ?6 clicks? Daily Activity Inpatient Short Form: Raw score: 15 Standardized score: 34.69 CMS score: 56.46% CMS modifier: CK INFORMED CONSENT/EDUCATION: Pt instructed in purpose of OT Consult and plan of care. ASSESSMENT: Patient is a 72-year-old male referred to occupational therapy services with diagnosis of CVA. Patient presents with clinical signs and symptoms consistent with dx, as demonstrated by the following impairment level findings: Increased pain in (L) UE, weakness in (R) UE due to CVA, decreased functional AROM of (B) UE, inability to perform functional lifting during ADLs/IADLs. Impairments are contributing to the following functional limitations: Decreased UE function in (B) UE, inability to perform ADLs/IADLs due to (B) UE arm function and pain in (L) UE, not able to safely carry wood to heat his home. Decreased gross and fine motor control of UE. [facility] but it is unclear on how fx is healing at this time. OT recommends that pt go to SNF when medically discharged per MD. Pt is not receptive to doing anything but returning home as he reported to OT, I plan on going home after they run all the tests today. Due to pts inability to perform dressing routine and the fact that his baseline in lying in the bathtub, I do not feel that pt will be able to perform these in a safe manner. If pt does return home OT highly recommends OT to address pts home and ADL routines in his living environment. AMPAC score 15, CMS score 56.46% Patient is assessed as a high [id number] complexity based on the following: History: See Above Examination: See Above Presentation: Evolving Decision Making: AMPAC score 15, CMS score 56.46% GOALS Goals x1 week in hospital setting. 1. Dressing- In sitting position pt will be able to perform LE dressing and (B) socks (I) with ideal technique for one handed techniques. -Pt will be able to (I) don and doff shirt in the sitting position. 2. Bathing- Pt will demonstrate safe body mechanics with transferring in and out of tub/shower combination for bathing routine. PLAN OF CARE/TREATMENT PLAN: 1x/day, 5 days/ week x 1week Initiate Occupational Therapy Services for bathing, dressing, grooming, toileting, eating, transfer training. DISCHARGE RECOMMENDATIONS OT does not feel that pt will be able to perform ALDs/IADLs safely at home, at this time OT does recommend SNF for rehabilitation to increase pts (I) in ADLs. If pt does return home OT recommends that pt have OT. TREATMENT TIME/MINUTES/CODES [id number], 30 minutes (08:30) Elise Hough OTR/[facility]
[2018-10-07] MEDS: Insulin Aspart 300 UNITS/3 ML PEN SC ×2 (12:42→17:01)
[2018-10-07] MEDS: Polyethylene Glycol 3350 17 GM PACKET PO (15:22)
--- NOTE | 2018-10-07 15:28 | W.SPEECHNOTE ---
Date of service: 10/07/18 Time of Service: 13:00 Speech Therapy Visit Note Note: Attempted to see pt today for swallow/speech eval as ordered by Lorna Garcia NP on 10/06/18. Tried twice to see pt but he was unavailable both times due to off-floor testing. Will reattempt tomorrow.
--- NOTE | 2018-10-07 15:46 | W.PM.PROGNOT ---
Date of Service Date of service: 10/07/18 Time of Service: 15:48 Assessment and Plan (1) CVA (cerebral vascular accident): Current visit: Yes Status: Chronic MRI brain confirms: Marked cerebral atrophy and chronic microvascular ischemic changes. Acute/subacute infarct on the left, predominantly involving the posterior limb of the internal capsule and associated periventricular white matter in left temporal lobe. Carotid artery ultrasound shows No evidence of a hemodynamically significant carotid stenosis. Echocardiogram is pending. Speech therapy was unable to see him today, she will attempt again tomorrow. He has right hemiparesis, slurred speech, gait instability. He has been seen by Neurology, Dr. Carr recommends Plavix 75 mg daily, Aspirin 81 mg daily (stop aspirin after 30 days, continue plavix), vitamin B12 1000 mcg/day, he may resume usual statin dose, ZioPatch upon discharge. He is working with PT, PT does not recommend him returning home alone, he reports that his daughter will stay with him. He has been monitored on telemetry, he has been in NSR with rates in the 70s. Continue to monitor on telemetry. Follow neurology recommendations. He does have some hypertension, will allow for permissive hypertension. (2) Hyperlipidemia: Current visit: Yes Status: Acute Lipid panel acceptable. Continue simvastatin at home dose. (3) Diabetes: Current visit: Yes Status: Chronic He takes metformin at home. Hemoglobin A1c 7.0. Monitor blood glucose before meals and at bedtime, aspart insulin per sliding scale, continue ADA diet. (4) Fracture of humerus, left, closed: Current visit: Yes Status: Acute He was seen in the emergency department on 08/23/2018, [facility] His range of motion remains limited, he continues to have pain. He has been seen by Dr. Lopez, orthopedics, who will work with physical therapy and occupational therapy to develop a plan for the patient. Dr. Lopez reviewed x-rays from today and feels the fracture is healing fairly well, he does not feel that surgery is indicated at the present time. Acetaminophen and tramadol as needed for pain. Will need home health physical therapy and occupational therapy upon discharge. (5) Alcohol abuse: Current visit: Yes Status: Chronic He reports drinking 2 beers per day. He is not scoring on the CIWA protocol. As needed Ativan per protocol. Continue to monitor. Continue thiamine and B12. (6) Discharge planning issues: Current visit: Yes Status: Acute He is a DNR/DNI. He lives alone. Physical therapy does not recommend him returning home alone, PT does not feel he would be safe and that he is at risk for falling. The patient plans to go home and have his daughter stay with him. Care management is working on a safe disposition for him. This case was discussed with Dr. Argueta who is in agreement. Subjective Interval history since last seen: Mr. Stephens is a 72-year-old man with a history of diabetes, on metformin, a remote history of lymphoma with lymph node excision and radiation therapy, hyperlipidemia and recent left humerus fracture (seen in the emergency department on 08/23/2018), [facility], who presented to the emergency department yesterday with symptoms concerning for stroke. He went on to have imaging today to include MRI/MRA brain, carotid artery ultrasound, echocardiogram. His MRI showed: Marked cerebral atrophy and chronic microvascular ischemic changes. Acute/subacute infarct on the left, predominantly involving the posterior limb of the internal capsule and associated periventricular white matter in left temporal lobe. His echocardiogram is pending. Today, he is eager for discharge. He continues to have slurred speech, he continues to have an unsteady gait, he has been working with physical therapy, physical therapy does not feel that he is safe to return home alone. He continues to report limited range of motion in the left upper extremity with some pain. He denies fevers or chills, headaches, he denies any difficulty swallowing, no shortness of breath, coughing, wheezing, no chest pain/pressure no palpitations today, he is eating and drinking and tolerating his diet, no nausea, vomiting or diarrhea. Exam Narrative Exam Narrative: General: Sitting at edge of bed, awake and alert, in NAD, answers questions appropriately, speech is slurred. HEENT: right facial droop noted. mucous membranes moist. EOMs intact, no nystagmus, pupils equal, round and reactive to light. Neck: supple, no JVD. Cardiovascular: Heart has a regular rate and rhythm, no murmur appreciated. Respiratory: Respirations even and unlabored, lung sounds clear to auscultation throughout. Abdomen: Radiation and surgical scar to mid abdomen (through to back) and radiation scar to left lower quadrant above left pelvis, midline, normoactive bowel sounds x4 quadrants, abdomen soft, nontender, nondistended, no masses appreciated. Extremities: Left upper extremity with severely limited range of motion, hand grasp weak bilaterally, more weak on right, ecchymosis over left shoulder anteriorly, appears to be resolving. Able to move right arm, right hand cool to touch. Bilateral lower extremities well perfused, no clubbing, cyanosis, or edema, right leg more weak than left. Peripheral pulses intact. No calf swelling, redness or tenderness. Objective Objective Clinical Data: Abnormal lab results 10/07/18 10/07/18 10/07/18 Range/Units 07:00 07:00 07:10 RBC 3.65 L (4.50-6.00) m/cumm Hgb 11.7 L (13.5-17.5) g/dL Hct 35.5 L (40.0-50.0) % MCV 97.3 H (80-95) fL BUN 23 H (7-18) mg/dL Glucose 164 H (70-100) mg/dL Hemoglobin A1c 7.0 H (4.5-6.2) % Vital Signs Temperature 36.3 C L 10/07/18 11:45 Temperature Source Tympanic 10/07/18 11:45 Pulse 82 10/07/18 11:45 Pulse Rhythm Regular 10/07/18 07:28 Pulse 80 10/06/18 11:10 Respiratory Rate 20 10/07/18 11:45 Respiratory Effort Non-Labored 10/07/18 07:28 Respiratory Depth Normal 10/07/18 07:28 Respiratory Pattern Normal 10/07/18 07:28 Blood Pressure 174/76 H 10/07/18 11:45 Blood Pressure Mean 112 10/06/18 11:01 Blood Pressure Position Sitting 10/06/18 09:50 Pulse Oximetry 97 10/07/18 11:45 Oxygen Delivery Method Room Air 10/07/18 11:45 Oxygen Flow Rate 0 10/07/18 11:45 Pain Level 0 10/07/18 11:47 Comment 10/07/18 05:15 Intake & Output 10/06/18 10/07/18 10/07/18 23:59 11:59 23:59 Intake Total 250 / 250 490 / 730 240 / 730 Output Total 350 / 350 500 / 500 Balance -100 / -100 -10 / 230 240 / 230 Weight 80.2 kg Intake: IV Oral 240 / 240 490 / 730 240 / 730 Output: Urine 350 / 350 500 / 500 Other: Urine Color Yellow Light Meagan Urine Appearance Clear Clear Urine Odor Normal Normal Comment Void x1 in the toilet. Voiding Methods Urinal Urinal Toilet Laboratory Results WBC 6.08 k/cumm (4.4-10.8) 10/07/18 07:00 RBC 3.65 m/cumm (4.50-6.00) L 10/07/18 07:00 Hgb 11.7 g/dL (13.5-17.5) L 10/07/18 07:00 Hct 35.5 % (40.0-50.0) L 10/07/18 07:00 MCV 97.3 fL (80-95) H 10/07/18 07:00 MCH 32.1 pg (27.0-33.0) 10/07/18 07:00 MCHC 33.0 g/dL (32.0-36.0) 10/07/18 07:00 RDW 13.2 % (11.8-14.1) 10/07/18 07:00 Plt Count 322 x1000/uL (130-400) 10/07/18 07:00 MPV 10.2 fL (8.0-11.0) 10/07/18 07:00 Immature Gran % 0.3 10/06/18 10:20 Neutrophils % 73.6 10/06/18 10:20 Lymphocytes % 18.4 10/06/18 10:20 Monocytes % 6.7 10/06/18 10:20 Eosinophils % 0.7 10/06/18 10:20 Basophils % 0.3 10/06/18 10:20 Absolute Neutrophils 5.38 k/cumm (1.2-6.7) 10/06/18 10:20 Absolute Lymphocytes 1.34 k/cumm (1.2-3.4) 10/06/18 10:20 Absolute Monocytes 0.49 k/cumm (0.11-0.7) 10/06/18 10:20 Absolute Eosinophils 0.05 k/cumm (0.0-0.7) 10/06/18 10:20 Absolute Basophils 0.02 k/cumm (0.0-0.2) 10/06/18 10:20 PT 9.9 sec (9.3-11.0) 10/06/18 10:20 INR 1.0 (0.9-1.1) 10/06/18 10:20 APTT 22.1 sec (21.0-31.4) 10/06/18 10:20 VBG pH 7.42 (7.32-7.43) 10/06/18 10:20 VBG pCO2 39 mm/Hg (34-47) 10/06/18 10:20 VBG pO2 33 mm/Hg (28-44) 10/06/18 10:20 VBG HCO3 25 mmol/L (22-28) 10/06/18 10:20 VBG Total CO2 23 mmol/L (22-29) 10/06/18 10:20 VBG O2 Saturation 62 % (70-80) L 10/06/18 10:20 VBG Base Excess 0.5 mmol/L (-3-3) 10/06/18 10:20 Sodium 142 mmol/L (136-145) 10/07/18 07:00 Potassium 3.8 mmol/L (3.5-5.1) 10/07/18 07:00 Chloride 107 mmol/L (98-107) 10/07/18 07:00 Carbon Dioxide 24.7 mmol/L (21.0-32.0) 10/07/18 07:00 Anion Gap 10.3 mmol/L (3-11) 10/07/18 07:00 BUN 23 mg/dL (7-18) H 10/07/18 07:00 Creatinine 1.05 mg/dL (0.70-1.30) 10/07/18 07:00 Estimated GFR/1.73 m2 >= 60.00 (mL/min/1.73m2) 10/07/18 07:00 Glucose 164 mg/dL (70-100) H 10/07/18 07:00 Hemoglobin A1c 7.0 % (4.5-6.2) H 10/07/18 07:10 Calcium 9.6 mg/dL (8.5-10.1) 10/07/18 07:00 Magnesium 1.9 mg/dL (1.8-2.4) 10/07/18 07:00 Total Bilirubin 0.5 mg/dL (0.2-1.0) 10/06/18 10:20 AST 26 U/L (15-37) 10/06/18 10:20 ALT 35 U/L (12-78) 10/06/18 10:20 Alkaline Phosphatase 92 U/L (46-116) 10/06/18 10:20 Ammonia 17 umol/L (11-32) 10/06/18 10:20 Troponin I < 0.02 ng/mL (0.00-0.06) 10/06/18 10:20 Total Protein 8.3 g/dL (6.4-8.2) H 10/06/18 10:20 Albumin 4.1 g/dL (3.4-5.0) 10/06/18 10:20 Triglycerides 113 mg/dL (30-150) 10/07/18 07:10 Total Cholesterol 160 mg/dL (50-200) 10/07/18 07:10 LDL Cholesterol Direct 89 mg/dL (<100) 10/07/18 07:10 HDL Cholesterol 45 mg/dL (40-60) 10/07/18 07:10 Vitamin B12 232 pg/mL (193-986) 10/07/18 07:10 TSH 2.40 uIU/mL (0.358-3.74) 10/07/18 07:10 Salicylates 7.2 mg/dL (2.8-20.0) 10/06/18 10:20 Acetaminophen 3 ug/mL (10-30) L 10/06/18 10:20 Ethyl Alcohol < 3.0 mg/dL (<3) 10/06/18 10:20
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
--- NOTE | 2018-10-07 16:18 | IN_ITS ---
Date of service: 10/07/18 Time of Service: 13:00 PT Notes Inpatient Physical Therapy Evaluation Date: 10/07/2018 Referring Doctor: Lorna Garcia PT Orders: PT CONSULT: ? CVA, right facial droop, gait disturbance Precautions: Fall, standard Patient Profile/Admitting Diagnosis: Patient admitted from the emergency department after presenting with complaints of right facial droop and gait disturbances times [address] scan performed earlier today confirmed CVA. PT consult has been requested to evaluate mobility. PMHX: Diabetes, high cholesterol, history of lymphoma with extensive chemo and radiation. Patient is 7 weeks status post left proximal humerus fracture, which was evaluated here in our emergency department, and has been managed through the [place] Social History/Home Situation: Patient lives alone in a multilevel home environment. He has 3 outdoor steps to enter, which she reports are very icy. He has a bedroom on the second floor of the home, although states that he is been sleeping downstairs in a recliner since his left shoulder fracture. He lives alone, and maintains a wood stove. He states that he is extremely active, growing much of his own food, raising chickens, cutting 5 cords of firewood per year, etc. Patient states that he has begun using a ski pole to walk around, as his balance has felt off for the past week. Current Functional Limitations: Patient reports inability to move left upper extremity Equipment Owned/DME: Cane, ski poles Subjective: Patient is resting in bed in initiation of session. He is agreeable to PT consultation. States he would like to go home today, as he has concerns about the heating within his home, which is primarily via woodstove. He also has a dog at home which he is worried about. He initially denies any history of falls, although later in conversation reports a 7-week old proximal humeral fracture after a fall down a full flight of stairs into his basement. Objective: General Observation: Resting in bed, no lines Mental Status: A and O x3. Quite anxious throughout session, with need for continuous cues for slow pace and safety. Pain: Left shoulder pain, per baseline ROM: Right Upper Extremity: WFL Left Upper Extremity: Patient is unable to demonstrate any active motion of the left shoulder. Passively he tolerates 60 degrees. Passive shoulder external rotation allows 10 degrees limited by pain. He also has significant crepitus with range. Elbow motion is full. Wrist and hand motion is full. Right Lower Extremity: WFL Left Lower Extremity: WFL Strength: Right Upper Extremity: Shoulder flexion 4-/5. Biceps 4/5. Triceps 4/5. Diaphragm Builder is weak. Left Upper Extremity: Active shoulder motion grossly 0/5. Biceps 3/5 or greater. Right Lower Extremity: Hip flexion 5/5. Quads 5/5. Ankle dorsiflexion 5/5. Left Lower Extremity: Hip flexion 5/5. Quads 5/5. Ankle dorsiflexion 5/5. Neuro: Patient has diminished fine motor skills, with thumb to digit tapping demonstrating poor accuracy. Coordination is moderately impaired with rapid alternating movements of both upper and lower extremities. Kinesthetic awareness is impaired on the right, with patient demonstrating poor accuracy with pointing tasks with the right upper extremity. Bed Mobility/Transfers: Supine to sit: Supervision Sit to supine: Supervision Sit to stand: Supervision, although with poor safety awareness and need for max cues throughout for pacing Stand to sit: Supervision Bed to chair: Cane with contact-guard Gait: Patient ambulance 100 feet x2 with cane in right upper extremity, and contact-guard to min assist. Patient has significant ataxia with deviating path and frequent minor losses of balance. He has poorly coordinated use of the cane, often carrying in his side despite cues for utilization. Stairs: Patient received stair training on therapeutic stairs with unilateral upper extremity support and use of cane in right upper extremity. He manages stairs 6 inches x10, 4 inches x15, with several losses of balance requiring min assist for recovery. He demonstrate poor kinesthetic awareness of the right lower extremity, requiring visual contact with the foot for appropriate placement. He also requires max cues for safety and pacing, with demonstration of poor safety awareness throughout. Balance: Static Sitting: Good Dynamic Sitting: Good Static Standing: Fair Dynamic Standing: Poor For position balance test shows 50% deficit, indicating fall risk Informed Consent/Education: Patient instructed in purpose of PT consult and plan of care. Treatment: Today's session consisted of evaluation, followed by long discussion regarding appropriate treatment planning and care. Patient was strongly encouraged not to walk independently and to call for nursing for any ambulation within his room. We also discussed the importance of PT intervention to maximize safety and mobility and reduce fall risk, which patient is in agreement with. He continues have significant concerns about his home. He received gentle mobilization of left shoulder with passive range into flexion and external rotation. He was instructed in self stretching into external rotation, which he can complete in his bed between sessions. Assessment: Patient is a 72 year old male referred to physical therapy services with the diagnosis of CVA. Patient presents with clinical signs and symptoms consistent with diagnosis, with significant limitations in functional mobility, balance and safety resulting. Patient appears to have poor insight into his deficits, and as a result is high fall risk. I anticipate that he will require extensive PT intervention to address both his acute issues related to his CVA as well as his ongoing limitations related to his recent left shoulder fracture. Currently demonstrates the following impairment level findings: 1. Decreased strength right upper extremity 2. Decreased strength and range of motion left upper extremity 3. Decreased balance 4. Decreased safety awareness 5. Gait deficits Impairments are contributing to the following functional limitations: 1. High fall risk 2. Unable to demonstrate safe ambulation for household distances 3. Unable to demonstrate safe management of stairs 4. Gait impairments Patient is assessed as High 88361 complexity based on the following: History: 72-year-old male admitted after acute CVA with right hemiparesis. Patient has limited insight into his deficits, and appears to be at risk for leaving AMA. He has significant concerns about his home situation, particularly his ability to keep his home heated in his absence. Additionally he is accompanied medical history including history of lymphoma, diabetes and a 7-week-old left proximal humerus fracture. Although he initially denies falls, I suspect he has a more extensive history than he is admitting to, particularly given his recent fracture. Examination: Functional limitations as noted above Presentation: Unstable Decision Making: High complexity Goals: Goals X1 week 1. Supine-Sit supervision 2. Sit-Supine supervision 3. Sit-Stand supervision 4. Stand-Sit supervision 5. Bed-Chair supervision with cane 6. Chair-Bed supervision with cane 7. Gait supervision with cane 8. Stairs 3 steps with single rail and cane, supervision only Plan of Care/Treatment Plan: 1-2x/day, 7 days/week x 1 week. Plan of care has been reviewed with the FLIGHT CONTROL TOWER OPERATOR providing the service under Physical Therapy direction. Initiate Physical Therapy intervention for strengthening, bed mobility, transfers, gait, stairs, balance training, use of assistive device. DISCHARGE RECOMMENDATIONS: Home with PT TREATMENT CODE/TIME: 35 minutes ([id number], [id number])
[2018-10-07] MEDS: Clopidogrel 75 MG TAB PO (17:00)
[2018-10-07] MEDS: Acetaminophen 325 MG TAB 650 MG PO (17:00)
[2018-10-08 03:25] VITALS: BP 154/80; PULSE 65; RESP 17; TEMP 36.2; O2SAT 95
[2018-10-08 07:00] VITALS: PULSE 69
[2018-10-08 07:50] VITALS: BP 152/73; PULSE 77; RESP 18; TEMP 36.5; O2SAT 98
[2018-10-08] MEDS: Acetaminophen 325 MG TAB 650 MG PO (09:19)
[2018-10-08] MEDS: Thiamine 100 MG TAB PO (09:20)
[2018-10-08] MEDS: Simvastatin 20 MG TAB PO (09:20)
[2018-10-08] MEDS: Insulin Aspart 300 UNITS/3 ML PEN SC ×2 (09:20→12:17)
[2018-10-08] MEDS: Clopidogrel 75 MG TAB PO (09:20)
[2018-10-08] MEDS: Cyanocobalamin 500 MCG TAB 1000 MCG PO (09:20)
[2018-10-08] MEDS: traMADol 50 MG TAB PO (09:20)
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
--- NOTE | 2018-10-08 10:35 | PT.INTREAT ---
Date of service: 10/08/18 Time of Service: 08:30 PT Notes Inpatient Physical Therapy Treatment Note [facility] Date: 10/08/18 PRECAUTIONS: Fall, standard SUBJECTIVE: Alejo states that he is feeling better today than he was yesterday. He is very anxious to return home. OBJECTIVE: PAIN: Left shoulder pain, per baseline BED MOBILITY/TRANSFERS Supine-sit: Independent Sit-supine: Independent Sit-stand: Independent Stand-sit: Independent Bed-Chair: Cane with supervision GAIT TRAINING (53397): Assistive Device: Cane Weight bearing: Full weightbearing Assist: Supervision Distance: 120 feet Deviation: Ataxia and path deviation, which improves with distance. He requires cues for appropriate utilization of cane, and particularly avoidance of caring at his side and using only for recovery of loss of balance. When utilizing three-point gait pattern consistently, patient does demonstrate improved gait, without loss of balance. Patient additionally ambulates 120 feet with wheeled walker independently, with significant improvements in gait mechanics and safety. He reports that he prefers the cane, and does not feel that his balance is impaired with use. He also demonstrates short distance ambulation about his room without use of assistive device, although with increased ataxia and reliance on furniture and loving for support. STAIRS: Patient is able to manage therapeutic stairs (6 inches x4, 4 inches x6) with use of straight cane and supervision only. He requires cues for appropriate technique and utilization of cane. He does demonstrate limitations in right foot placement, requiring cues for maintaining visual contact to ensure appropriate placement of right lower extremity during stair management. NEUROMUSCULAR RE-EDUCATION (18040): Patient was instructed in various right upper extremity activities for improved coordination and kinesthetic awareness. He performed reaching activities (right side only) in seated position at various heights and distances, with good accuracy although increased time to perform. He was provided with a pink foam cube for completion of pinching and gripping activities, and also completed various fine motor tasks as noted on flowsheet. He was encouraged to complete these at home and was provided with a handout with suggestions for repetitive fine motor tasks that he can complete independently. And hook lying position, he was instructed in hook lying marching, with focus on accurate right foot placement. He does have minor deviation into adduction with this activity. MANUAL THERAPY (36836): Patient received PROM to the left shoulder, tolerating 60 degrees flexion and 20 degrees ER. He was instructed in self-mobilization into ER with cane, as well as pendulum exercises. He also completed active assisted shoulder flexion in seated position to 60 degrees, which is able to tolerate without pain. ASSESSMENT: Patient is making gains in mobility, with improved safety with ambulation today. Although I think he would be best suited with a wheeled walker for safety purposes, I suspect compliance will be an issue with this. He is agreeable to utilizing a cane, and certainly demonstrates improved safety with use versus unassisted ambulation. He is going to require extensive PT intervention both for balance retraining and mobilization of his left shoulder. He was seen by Dr. Lopez this morning his recommended introduction of PROM and AROM within his tolerance; he will need to follow through with this with home health services. PLAN: We will continue PT intervention for balance retraining, gait training and mobilization of left shoulder TREATMENT CODE/TIME: 45 minutes ([id number], [id number])
--- NOTE | 2018-10-08 10:43 | PTTR_ITS ---
Date of service: 10/08/18 Time of Service: 08:30 PT Notes Inpatient Physical Therapy Treatment Note [facility] Date: 10/08/18 PRECAUTIONS: Fall, standard SUBJECTIVE: Alejo states that he is feeling better today than he was yesterday. He is very anxious to return home. OBJECTIVE: PAIN: Left shoulder pain, per baseline BED MOBILITY/TRANSFERS Supine-sit: Independent Sit-supine: Independent Sit-stand: Independent Stand-sit: Independent Bed-Chair: Cane with supervision GAIT TRAINING (68150): Assistive Device: Cane Weight bearing: Full weightbearing Assist: Supervision Distance: 120 feet Deviation: Ataxia and path deviation, which improves with distance. He requires cues for appropriate utilization of cane, and particularly avoidance of caring at his side and using only for recovery of loss of balance. When utilizing three-point gait pattern consistently, patient does demonstrate improved gait, without loss of balance. Patient additionally ambulates 120 feet with wheeled walker independently, with significant improvements in gait mechanics and safety. He reports that he prefers the cane, and does not feel that his balance is impaired with use. He also demonstrates short distance ambulation about his room without use of assistive device, although with increased ataxia and reliance on furniture and loving for support. STAIRS: Patient is able to manage therapeutic stairs (6 inches x4, 4 inches x6) with use of straight cane and supervision only. He requires cues for appropriate technique and utilization of cane. He does demonstrate limitations in right foot placement, requiring cues for maintaining visual contact to ensure appropriate placement of right lower extremity during stair management. NEUROMUSCULAR RE-EDUCATION ([id number]): Patient was instructed in various right upper extremity activities for improved coordination and kinesthetic awareness. He performed reaching activities (right side only) in seated position at various heights and distances, with good accuracy although increased time to perform. He was provided with a pink foam cube for completion of pinching and gripping activities, and also completed various fine motor tasks as noted on flowsheet. He was encouraged to complete these at home and was provided with a handout with suggestions for repetitive fine motor tasks that he can complete independently. And hook lying position, he was instructed in hook lying marching, with focus on accurate right foot placement. He does have minor deviation into adduction with this activity. MANUAL THERAPY ([id number]): Patient received PROM to the left shoulder, tolerating 60 degrees flexion and 20 degrees ER. He was instructed in self-mobilization into ER with cane, as well as pendulum exercises. He also completed active assisted shoulder flexion in seated position to 60 degrees, which is able to tolerate without pain. ASSESSMENT: Patient is making gains in mobility, with improved safety with ambulation today. Although I think he would be best suited with a wheeled walker for safety purposes, I suspect compliance will be an issue with this. He is agreeable to utilizing a cane, and certainly demonstrates improved safety with use versus unassisted ambulation. He is going to require extensive PT intervention both for balance retraining and mobilization of his left shoulder. He was seen by Dr. Lopez this morning his recommended introduction of PROM and AROM within his tolerance; he will need to follow through with this with home health services. PLAN: We will continue PT intervention for balance retraining, gait training and mobilization of left shoulder TREATMENT CODE/TIME: 45 minutes ([id number], [id number])
[2018-10-08 11:45] VITALS: BP 138/93; PULSE 89; RESP 18; TEMP 36.9; O2SAT 97
[2018-10-08 12:01] LABS: HCT 36.7 % (40.0-50.0); HGB 12.3 g/dL (13.5-17.5); Mean Corp. HGB Concentration 33.5 g/dL (32.0-36.0); Mean Corpuscular Hemoglobin 32.5 pg (27.0-33.0); Mean Corpuscular Volume 96.8 fL (80-95); Mean Platelet Volume 9.6 fL (8.0-11.0); Platelet Count 328 x1000/uL (130-400); RBC 3.79 m/cumm (4.50-6.00); RBC Distribution Width 13.2 % (11.8-14.1); White Blood Cell Count 8.57 k/cumm (4.4-10.8)
--- NOTE | 2018-10-08 12:10 | W.INDIABCONS ---
Date of service: 10/08/18 Time of Service: 12:10 Diabetes Inpatient Consult DESCRIPTION/ASSESSMENT: Appreciate diabetes consult for Mr. Stephens who is hospitalized for symptoms of CVA. A1c 7. BMI 25 72 years old Mr. Stephens manages diabetes with Metformin presumed 500mg BID. Here is receives sensitive insulin correction with blood sugars 142-211. He is eating 30-60grams carbohydrate at his meals. INTERVENTION: Mr. Stephens is reasonably managed for type 2 diabetes given his age and A1c and minimal medication. PLAN: Will follow blood sugars and follow up as possible prior to discharge. Time Spent in Nutritional Counseling and Treatment: 0 face to face inpatient
[2018-10-08 12:11] LABS: Anion Gap 7.9 mmol/L (3-11); BUN 19 mg/dL (7-18); CO2 27.1 mmol/L (21.0-32.0); CREATININE 1.05 mg/dL (0.70-1.30); Calcium 9.6 mg/dL (8.5-10.1); Chloride 103 mmol/L (98-107); Glucose 177 mg/dL (70-100); Magnesium 1.9 mg/dL (1.8-2.4); Potassium 4.2 mmol/L (3.5-5.1); Sodium 138 mmol/L (136-145)
[2018-10-08] MEDS: Polyethylene Glycol 3350 17 GM PACKET PO (14:15)
[2018-10-08] MEDS: Docusate Sodium 100 MG CAP PO (14:15)
--- NOTE | 2018-10-08 14:28 | PT.INDS ---
Date of service: 10/08/18 Time of Service: 14:00 PT Notes Date: 10/08/2018 Referring Doctor: Lorna Garcia PT Orders: PT CONSULT: ? CVA, right facial droop, gait disturbance Precautions: Fall, standard Treatment Dates: 10/07/18 - 10/08/18 Patient Profile/Admitting Diagnosis: Patient admitted from the emergency department after presenting with complaints of right facial droop and gait disturbances times [address] scan confirmed CVA. Patient has participated in 3 PT sessions per day over the past 2 days. PMHX: Diabetes, high cholesterol, history of lymphoma with extensive chemo and radiation. Patient is 7 weeks status post left proximal humerus fracture, which was evaluated here in our emergency department, and has been managed through the [facility] Social History/Home Situation: Patient lives alone in a multilevel home environment. He has 3 outdoor steps to enter, which she reports are very icy. He has a bedroom on the second floor of the home, although states that he is been sleeping downstairs in a recliner since his left shoulder fracture. He lives alone, and maintains a wood stove. He states that he is extremely active, growing much of his own food, raising chickens, cutting 5 cords of firewood per year, etc. Patient states that he has begun using a ski pole to walk around, as his balance has felt off for the past week. Current Functional Limitations: Patient reports inability to move left upper extremity Equipment Owned/DME: Cane, ski poles Subjective: He was alerted to patient independently ambulating halls with straight cane. Patient has returned to his room, and reports that he got caught. States that he will be returning home this evening, and is agreeable to utilizing cane at home. He understands recommendation from PT and medical staff that he remain in the hospital and consider assisted stay, although states he just cannot do it. Objective: General Observation: Resting in bed, no lines Mental Status: A and O x3. Quite anxious throughout session. Pain: Left shoulder pain, per baseline ROM: Right Upper Extremity: WFL Left Upper Extremity: Patient is unable to demonstrate any active motion of the left shoulder. Passively he tolerates 60 degrees flexion. Passive shoulder external rotation allows 20 degrees limited by pain. He also has significant crepitus with range. Elbow motion is full. Wrist and hand motion is full. Right Lower Extremity: WFL Left Lower Extremity: WFL Strength: Right Upper Extremity: Shoulder flexion 4-/5. Biceps 4/5. Triceps 4/5. Shop Assistant is weak. Left Upper Extremity: Active shoulder motion grossly 0/5. Biceps 3/5 or greater. Right Lower Extremity: Hip flexion 5/5. Quads 5/5. Ankle dorsiflexion 5/5. Left Lower Extremity: Hip flexion 5/5. Quads 5/5. Ankle dorsiflexion 5/5. Neuro: Patient has diminished fine motor skills, with thumb to digit tapping demonstrating poor accuracy. Coordination is moderately impaired with rapid alternating movements of both upper and lower extremities. Kinesthetic awareness is impaired on the right, with patient demonstrating poor accuracy with pointing tasks with the right upper extremity. Bed Mobility/Transfers: Supine to sit: Independent Sit to supine: Independent Sit to stand: Independent Stand to sit: Independent Bed to chair: Cane with supervision Gait: Patient demonstrates ability to ambulate 120 feet x2 with supervision and use of FW W. He continues to demonstrate mild ataxia, although this is significantly improved with utilization of walker. He does demonstrate poor equipment management, catching the right front wheel on furniture as he passes on 3 occasions. He is also able to ambulate 120 feet with straight cane and contact-guard, with significant increase in ataxia and path deviation. During this morning session, he had multiple losses of balance, particularly with turning. Stairs: Patient received stair training on therapeutic stairs with unilateral upper extremity support and use of cane in right upper extremity. He manages stairs 6 inches x10, 4 inches x15, with several losses of balance requiring min assist for recovery. He demonstrate poor kinesthetic awareness of the right lower extremity, requiring visual contact with the foot for appropriate placement. He also requires max cues for safety and pacing, with demonstration of poor safety awareness throughout. Balance: Static Sitting: Good Dynamic Sitting: Good Static Standing: Good Dynamic Standing: Fair For position balance test shows 50% deficit, indicating fall risk Ba balance test shows score of 29/56, indicating high fall risk Treatment: Today's session consisted of gait training, with patient strongly encouraged to utilize FW W versus straight cane. He understands his fall risk, and we went over test results at length. Patient continues to opt to leave the hospital despite recommendation for continued rehabilitation. Assessment: Patient is a 72 year old male referred to physical therapy services with the diagnosis of CVA. Patient presents with clinical signs and symptoms consistent with diagnosis, with significant limitations in functional mobility, balance and safety resulting. Patient appears to have poor insight into his deficits, and also demonstrates poor scores on balance testing, placing him at high fall risk category. Patient has been recommended for continued rehabilitation prior to returning home, however he is deferring on this and plans to leave the hospital against medical advice. Goals: Goals X1 week 1. Supine-Sit supervision (MET) 2. Sit-Supine supervision(MET) 3. Sit-Stand supervision(MET) 4. Stand-Sit supervision(MET) 5. Bed-Chair supervision with cane(MET) 6. Chair-Bed supervision with cane(MET) 7. Gait supervision with cane (NOT MET) 8. Stairs 3 steps with single rail and cane, supervision only (NOT MET) Plan of Care/Treatment Plan: PT recommendation of continued gait training with FW W, and recommendation of transition to assisted facility for continued rehabilitation prior to returning home. Patient is aware of these recommendations, as we have discussed them at length. DISCHARGE RECOMMENDATIONS: SNF, [facility] TREATMENT CODE/TIME: 15 minutes ([id number])
--- NOTE | 2018-10-08 14:29 | PDOC.CMPRO ---
Care Management Progress Note Alejo opted to leave AMA; CM reviewed AMA decision making with Alejo and his provider today, JOSE L Aomr. Alejo reported feeling strongly that he needed to return home at this time and follow up with [facility] on [facility] steps. Alejo reported he would [facility] with [facility] for [facility], [facility] and D[facility] if he felt he could benefit from these services after returning home. CM left for Sulma ArmandoWoodbine (who is covering for Estee Ma) [phone], as well as CM office [phone]. CM called Sawyer Higgins in [facility] to inquire of patient cost for new prescription of Plavix as requested--Alejo does not have prescription coverage--Layo reported cost of $143.99. CM spoke to who ordered four days worth of Plavix from [facility] to take home with him, and CM [facility]ed [facility] to [facility]: [phone] with request for prescription and service follow up. Alejo will transport via private vehicle with his daughter, Dina who plans on spending the night with him.
--- NOTE | 2018-10-08 14:39 | INDS_ITS ---
Date of service: 10/08/18 Time of Service: 14:00 PT Notes Date: 10/08/2018 Referring Doctor: Lorna Garcia PT Orders: PT CONSULT: ? CVA, right facial droop, gait disturbance Precautions: Fall, standard Treatment Dates: 10/07/18 - 10/08/18 Patient Profile/Admitting Diagnosis: Patient admitted from the emergency de partment after presenting with complaints of right facial droop and gait disturbances times [address] scan confirmed CVA. Patient has participated in 3 PT sessions per day over the past 2 days. PMHX: Diabetes, high cholesterol, history of lymphoma with extensive chemo and radiation. Patient is 7 weeks status post left proximal humerus fracture, which was evaluated here in our emergency department, and has been managed through the [place] Social History/Home Situation: Patient lives alone in a multilevel home environment. He has 3 outdoor steps to enter, which she reports are very icy. He has a bedroom on the second floor of the home, although states that he is been sleeping downstairs in a recliner since his left shoulder fracture. He lives alone, and maintains a wood stove. He states that he is extremely active, growing much of his own food, raising chickens, cutting 5 cords of firewood per year, etc. Patient states that he has begun using a ski pole to walk around, as his balance has felt off for the past week. Current Functional Limitations: Patient reports inability to move left upper extremity Equipment Owned/DME: Cane, ski poles Subjective: He was alerted to patient independently ambulating halls with straight cane. Patient has returned to his room, and reports that he got caught. States that he will be returning home this evening, and is agreeable to utilizing cane at home. He understands recommendation from PT and medical staff that he remain in the hospital and consider senior living stay, although states he just cannot do it. Objective: General Observation: Resting in bed, no lines Mental Status: A and O x3. Quite anxious throughout session. Pain: Left shoulder pain, per baseline ROM: Right Upper Extremity: WFL Left Upper Extremity: Patient is unable to demonstrate any active motion of the left shoulder. Passively he tolerates 60 degrees flexion. Passive shoulder external rotation allows 20 degrees limited by pain. He also has significant crepitus with range. Elbow motion is full. Wrist and hand motion is full. Right Lower Extremity: WFL Left Lower Extremity: WFL Strength: Right Upper Extremity: Shoulder flexion 4-/5. Biceps 4/5. Triceps 4/5. Sed Special Education Teacher is weak. Left Upper Extremity: Active shoulder motion grossly 0/5. Biceps 3/5 or greater. Right Lower Extremity: Hip flexion 5/5. Quads 5/5. Ankle dorsiflexion 5/5. Left Lower Extremity: Hip flexion 5/5. Quads 5/5. Ankle dorsiflexion 5/5. Neuro: Patient has diminished fine motor skills, with thumb to digit tapping demonstrating poor accuracy. Coordination is moderately impaired with rapid alternating movements of both upper and lower extremities. Kinesthetic awareness is impaired on the right, with patient demonstrating poor accuracy with pointing tasks with the right upper extremity. Bed Mobility/Transfers: Supine to sit: Independent Sit to supine: Independent Sit to stand: Independent Stand to sit: Independent Bed to chair: Cane with supervision Gait: Patient demonstrates ability to ambulate 120 feet x2 with supervision and use of FW W. He continues to demonstrate mild ataxia, although this is significantly improved with utilization of walker. He does demonstrate poor equipment management, catching the right front wheel on furniture as he passes on 3 occasions. He is also able to ambulate 120 feet with straight cane and contact-guard, with significant increase in ataxia and path deviation. During this morning session, he had multiple losses of balance, particularly with turning. Stairs: Patient received stair training on therapeutic stairs with unilateral upper extremity support and use of cane in right upper extremity. He manages stairs 6 inches x10, 4 inches x15, with several losses of balance requiring min assist for recovery. He demonstrate poor kinesthetic awareness of the right lower extremity, requiring visual contact with the foot for appropriate placement. He also requires max cues for safety and pacing, with demonstration of poor safety awareness throughout. Balance: Static Sitting: Good Dynamic Sitting: Good Static Standing: Good Dynamic Standing: Fair For position balance test shows 50% deficit, indicating fall risk Ba balance test shows score of 29/56, indicating high fall risk Treatment: Today's session consisted of gait training, with patient strongly encouraged to utilize FW W versus straight cane. He understands his fall risk, and we went over test results at length. Patient continues to opt to leave the hospital despite recommendation for continued rehabilitation. Assessment: Patient is a 72 year old male referred to physical therapy services with the diagnosis of CVA. Patient presents with clinical signs and symptoms consistent with diagnosis, with significant limitations in functional mobility, balance and safety resulting. Patient appears to have poor insight into his deficits, and also demonstrates poor scores on balance testing, placing him at high fall risk category. Patient has been recommended for continued rehabilitation prior to returning home, however he is deferring on this and plans to leave the hospital against medical advice. Goals: Goals X1 week 1. Supine-Sit supervision (MET) 2. Sit-Supine supervision(MET) 3. Sit-Stand supervision(MET) 4. Stand-Sit supervision(MET) 5. Bed-Chair supervision with cane(MET) 6. Chair-Bed supervision with cane(MET) 7. Gait supervision with cane (NOT MET) 8. Stairs 3 steps with single rail and cane, supervision only (NOT MET) Plan of Care/Treatment Plan: PT recommendation of continued gait training with FW W, and recommendation of transition to senior living facility for continued rehabilitation prior to returning home. Patient is aware of these recommendations, as we have discussed them at length. DISCHARGE RECOMMENDATIONS: SNF, [facility] TREATMENT CODE/TIME: 15 minutes ([id number])
[2018-10-08 15:45] VITALS: PULSE 78
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
--- NOTE | 2018-10-08 16:44 | CMPROGNOTE_ITS ---
Care Management Progress Note Alejo opted to leave AMA; CM reviewed AMA decision making with Alejo and his provider today, JOSE L Amor. Alejo reported feeling strongly that he needed to return home at this time and follow up with his [facility] providers on next steps. Alejo reported he would follow up with the [facility] for [facility], [facility] and DME if he felt he could benefit from these services after returning home. CM left for [place] (who is covering for Estee Ma) [phone], as well as CM office [phone]. CM called Sawyer Higgins in [facility] to inquire of patient cost for new prescription of Plavix as requested--Alejo does not have prescription coverage--[facility] reported cost of $143.99. CM spoke to who ordered four days worth of Plavix from [facility] to take home with him, and CM [facility]: [phone] with request for prescription and service follow up. Alejo will transport via private vehicle with his daughter, Dina who plans on spending the night with him.
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
--- NOTE | 2018-11-01 07:51 | ZIOP_ITS ---
[employer]ELOPER REPORT DATE OF DICTATION October 30, 2018 INDICATION Cerebral infarct. PRESCRIBING CLINICIAN Deedee Del Real M.D. ENROLLMENT 10/08/2018 - 10/21/2018 FINDINGS 1. Baseline sinus rhythm, 52-127 beats per minute, average 80 beats per minute. 2. Rare PAC, less than 1%, 18 atrial runs, fastest 5 beats at 193 beats per minute, longest 13 beats at 113 beats per minute, no AF. 3. Rare PVC, less than 1%, no VT. 4. No pauses. 5. 1 trigger event with sinus rhythm, 80 beats per minute. 6. No symptoms recorded. Pascual Cohen M.D. RUIZ/rupal CPT 0298T T- 11/01/2018
== END 2018-10-08 16:12 | disposition left against medical advice (07) ==
LOC: ER 13:28 → MS 14:32
PROVIDERS: Nurse Practitioner; Nurse Practitioner Family; Admitting Provider Internal Medicine; Emergency Provider Student in an Organized Health Care Education/Training Program; Visit Provider Internal Medicine
DX: I63.312 Cerebral infarction due to thrombosis of left middle cerebral artery (principal); G81.91 Hemiplegia, unspecified affecting right dominant side; R47.1 Dysarthria and anarthria; R41.3 Other amnesia; R29.810 Facial weakness; R26.9 Unspecified abnormalities of gait and mobility; E78.5 Hyperlipidemia, unspecified; E11.9 Type 2 diabetes mellitus without complications; Z79.84 Long term (current) use of oral hypoglycemic drugs; I67.82 Cerebral ischemia; F10.10 Alcohol abuse, uncomplicated; Z66 Do not resuscitate; Z60.2 Problems related to living alone; S42.302D Unspecified fracture of shaft of humerus, left arm, subsequent encounter for fracture with routine healing; X58.XXXD Exposure to other specified factors, subsequent encounter; I51.7 Cardiomegaly; I34.0 Nonrheumatic mitral (valve) insufficiency; F17.210 Nicotine dependence, cigarettes, uncomplicated
CPT/HCPCS: 36415; 70544; 80048; 80053; 80061; 82805; 83721; 85027; 92610; 93005; 93225; 93306; 97112; 97116; 97140; 97163; 97167; 97530; 99213; 99215; 99219; 99232; 99239; 99255; 99285; G8996; 70450; 70551; 73030; 80320; 80329; 82140; 82607; 83036; 83735; 84443; 84484; 85025; 85610; 85730; 93010; 93880; 99217; 99225; G0378

== ENCOUNTER → 2018-10-07 08:30 | Outpatient (BNVA) | payer MEDICARE, SELFPAY | PROVIDERS: Visit Provider Psychiatry & Neurology Neurology | DX: R69 Illness, unspecified (principal) ==

== ENCOUNTER 2018-10-30 21:31 | Outpatient (CLI) | payer MEDICARE, SELFPAY | END 2018-10-30 21:51 | PROVIDERS: PCP Physician Assistant Medical; Referring Provider Physician Assistant Medical; Visit Provider Internal Medicine Cardiovascular Disease | DX: I63.312 Cerebral infarction due to thrombosis of left middle cerebral artery (principal) | CPT/HCPCS: 0298T ==

== ENCOUNTER → 2019-03-14 08:10 | Outpatient (BNVA) | payer MEDICARE, SELFPAY | PROVIDERS: PCP Physician Assistant Medical; Referring Provider Physician Assistant Medical; Visit Provider Psychiatry & Neurology Neurology | DX: H53.8 Other visual disturbances (principal); I63.312 Cerebral infarction due to thrombosis of left middle cerebral artery; R13.10 Dysphagia, unspecified; G47.10 Hypersomnia, unspecified; I10 Essential (primary) hypertension; E11.9 Type 2 diabetes mellitus without complications; Z79.4 Long term (current) use of insulin | CPT/HCPCS: 99214; 99215 ==

== ENCOUNTER 2020-02-16 12:57 | Observation (INO) | payer OTHER, SELFPAY ==
[2020-02-16] VITALS (92 sets, daily range): BP systolic 157–174; BP diastolic 28–87; PULSE 67–87; RESP 11–33; TEMP 36.2–36.9; O2SAT 92–100
--- NOTE | 2020-02-16 | DI.US_ITS ---
APPROVED REPORT EXAM: Comprehensive 2D, Doppler, and color-flow Echocardiogram Patient Location: ER Room/Bed: 1 Indications: CVA Other Information Study Quality: Adequate Conclusion Left Ventricle : The left ventricle is normal size. The left ventricular systolic function is normal. The left ventricular ejection fraction is within the normal range. There is normal left ventricular wall thickness. There is normal LV segmental wall motion. Transmitral Doppler flow pattern suggests i mpaired LV relaxation. LVEF is 60%. Right Ventricle : The right ventricle is normal size. The right ventricular systolic function is norm al. The RVSP is 23.0 mmHg. Atria : The left atrium size is normal. The right atrium size is normal. Atrial septal aneurysm is pr esent. Valves: There are no hemodynamically significant valvular lesions. Great Vessels : The aortic root is normal in size. The ascending aorta is mildly dilated. Aortic arch is not well visualized. IVC is normal in size and collapses >50% with inspiration. Compared to echocardiogram from 10/07/2018: There is no significant change. Wall motion Left Ventricle The left ventricle is normal size. The left ventricular systolic function is normal. The left ventric ular ejection fraction is within the normal range. There is normal left ventricular wall thickness. T here is normal LV segmental wall motion. Transmitral Doppler flow pattern suggests impaired LV relaxa tion. There is no ventricular septal defect visualized. LVEF is 60%. Right Ventricle The right ventricle is normal size. The right ventricular systolic function is normal. The RVSP is 23 .0 mmHg. Atria The left atrium size is normal. The right atrium size is normal. The interatrial septum is intact wit h no evidence for an atrial septal defect. Atrial septal aneurysm is present. Aortic Valve Aortic valve is trileaflet. There is no aortic valvular stenosis. No aortic regurgitation is present. Mitral Valve Moderate mitral annular calcification. The mitral valve is mildly thickened. No evidence of mitral va lve stenosis. Trace mitral regurgitation. Tricuspid Valve The tricuspid valve is normal in structure. There is no tricuspid valve stenosis. Trace tricuspid reg urgitation. Pulmonic Valve Pulmonic valve is not well visualized. There is no pulmonic valvular stenosis. Trace pulmonic regurgi tation. Great Vessels The aortic root is normal in size. The ascending aorta is mildly dilated. Aortic arch is not well vis ualized. IVC is normal in size and collapses >50% with inspiration. Pericardium There is no pericardial effusion. 2D Dimensions IVSD d PLAX 0.93 cm M: 0.6-1.2 LV Vol A2C d MOD 80.9 mL LVPW d PLAX 0.93 cm M: 0.6 - 1.2 LV Vol A4C d MOD 98.2 mL LVID d PLAX 4.52 cm M: 4.2 - 5.8 LA vol/ BSA A2C s A-L 38.3 mL/m2 LVDs 3.05 cm M: 2.5 - 4.0 LA vol/ BSA A4C s A-L 30.1 mL/m2 Ao Root d 3.43 cm M: 3.1 - 3.7 LA Vol/ BSA Biplane s A-L 34.6 mL/m2 RA Area A4C 16.64 cm2 LA Area A4C s MOD 19.84 cm2 RA Vol/ BSA A4C s A-L 22.2 mL/m2 LA Area A2C s MOD 21.94 cm2 Ao Asc Diam d 3.52 cm M: 2.6 - 3.4 LV EF A4C MOD 59.5 % LV EF Teichholz 60.4 % LV EF A2C MOD 58.8 % LVEF (Mckee's) 59.04 % M: 52 - 72 LV EF Biplane MOD 59.0 % LV Volume 69.43 mL M: 62 - 150 SV 54.44 mL LV Volume Index 35.24 mL/m2 M: 34 - 74 SV Index 27.54 mL/m2 LV Vol Biplane MOD 92.2 mL FS 32.10 % M-Mode TAPSE 2.52 cm (M/F) >1.7 LV Diastology MV E' medial 0.068 (>0.07 m/s) E/A Ratio 0.9 LV E/e MED 12.50 (<14) MV E Vmax 0.86 (0.4-1.3 m/s) MV E' lateral 0.083 (>0.1 m/s) MV A Vmax 0.95 (0.4-1.3 m/s) LV E/e LAT 10.30 (<14) MV E/A Ratio 0.86 MV E/E' medial 12.54 MV E/E' lateral 10.33 Aortic Valve LVOT Area 3.66 cm2 AoV Area Vmax 2.39 cm2 LVOT Vmax 1.15 m/s AoV Area/ BSA (Vmax) 1.21 cm2/m2 LVOT Mean Charles. 0.76 m/s CLAUDIO Mean Charles. 2.23 cm2 LVOT Peak Grad 5.3 mmHg CLAUDIO Mean Charles. Index 1.13 cm2/m2 LVOT Mean Grad 2.7 mmHg LVOT VTI 0.215 m LVOT Diam s 2.15 cm AoV Vmax 1.77 m/s Velocity Ratio 0.64 AoV Mean Charles. 1.25 m/s AoV Peak Grad 12.5 mmHg LVOT SV 78.70 mL AoV Mean Grad 7.0 mmHg AoV VTI 0.357 m AoV Area VTI 2.21 cm2 AoV Area/ BSA (VTI) 1.12 cm/m2 Mitral Valve MV DT 292 (160-240 msec) MV PHT 85 msec MV Area PHT 2.60 cm2 Pulmonary Valve PV Vmax 1.13 (0.5-1.5 m/s) RVOT Peak Gr. 1.22 mmHg PV Peak Grad 5.1 mmHg RVOT Mean Gr. 0.70 mmHg PV Mean Grad 3.3 mmHg RVOT VTI 0.121 m PV VTI 0.238 m RVOT Vmax 0.55 m/s Tricuspid Valve TR Peak Grad 20.0 mmHg TR Vmax 2.24 m/s RA Pressure 3.00 mmHg RVSP (TR) 23.0 mmHg
--- NOTE | 2020-02-16 12:45 | DI.CT_ITS ---
EXAM: CT HEAD - STROKE PROTOCOL CLINICAL HISTORY: headache, aphasia, L leg weakness. TECHNIQUE: Imaging Protocol: Axial computed tomography images with coronal and sagittal reformatted images were created and reviewed FINDINGS: Ventricles and Extra axial spaces: Normal in size and morphology for the patient's age. Hemorrhage: None. Cerebral parenchyma: Old basal ganglial lacunar infarcts. White matter changes consistent with small vessel disease. Midline shift: None. Brainstem/Cerebellum: Normal. Calvarium: Normal. Visualized Paranasal sinuses/Mastoids: Clear. Soft Tissues: Unremarkable. IMPRESSION: No acute intracranial process. RADIATION DOSE DELIVERED: 843.64mGy.cm Total DLP DATA REPOSITORY: All CT scans at this facility are submitted to the National Radiology Data Registry (NRDR) Dose Index Registry (DIR) with the [employer] (ACR). RADIATION OPTIMIZATION: All CT scans at this facility use at least one of these dose optimization te chniques: automated exposure control; mA and/or kV adjustment per patient size (includes targeted exa ms where dose is matched to clinical indication); or iterative reconstruction.
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
[2020-02-16 13:17] LABS: Abs Immature Grans 0.02 k/cumm (0.0-0.09); Absolute Basophil Count 0.01 k/cumm (0.0-0.2); Absolute Monocyte Count 0.59 k/cumm (0.11-0.7); Absolute Neutrophil Count 6.88 k/cumm (1.2-6.7); Basophils % 0.1; Eosinophils % 1.1; HGB 11.4 g/dL (13.5-17.5); Immature Grans % 0.2 %; Lymphocytes % 14.6; Mean Corp. HGB Concentration 33.5 g/dL (32.0-36.0); Mean Corpuscular Hemoglobin 30.6 pg (27.0-33.0); Mean Corpuscular Volume 91.2 fL (80-95); Mean Platelet Volume 9.7 fL (8.0-11.0); Monocytes % 6.6; Neutrophils % 77.4; Platelet Count 402 x1000/uL (130-400); RBC 3.73 m/cumm (4.50-6.00); RBC Distribution Width 13.6 % (11.8-14.1)
--- NOTE | 2020-02-16 13:19 | DI.RAD_ITS ---
EXAM: XR CHEST 1V IN DI DEPT CLINICAL HISTORY: headache, aphasia, L leg weakness TECHNIQUE: 2D digital imaging was performed. COMPARISON: No exams were available for comparison FINDINGS: LUNGS: Clear. No pleural abnormality seen. HEART: Normal. MEDIASTINUM: Normal. OTHER FINDINGS: Multiple leads overlie the chest. IMPRESSION: No acute pulmonary findings. DATA REPOSITORY: RADIATION DOSE DELIVERED:
[2020-02-16] MEDS: Normal Saline 1,000 ML 125 ML IV (13:30)
[2020-02-16 13:40] LABS: ALT 19 U/L (16-63); AST 16 U/L (15-37); Albumin 3.7 g/dL (3.4-5.0); Alkaline Phosphatase 99 U/L (46-116); Anion Gap 12.1 mmol/L (3-11); BUN 14 mg/dL (7-18); Bilirubin, Total 0.5 mg/dL (0.2-1.0); CO2 23.9 mmol/L (21.0-32.0); CREATININE 1.09 mg/dL (0.70-1.30); Calcium 9.5 mg/dL (8.5-10.1); Chloride 103 mmol/L (98-107); Glucose 128 mg/dL (74-106); Magnesium 1.9 mg/dL (1.8-2.4); Potassium 3.8 mmol/L (3.5-5.1); Sodium 139 mmol/L (136-145); Total Protein 7.9 g/dL (6.4-8.2)
[2020-02-16 13:42] LABS: Troponin I < 0.05 ng/mL (<0.06)
[2020-02-16 14:04] LABS: Bilirubin Negative (Negative); Blood Negative (Negative); Clarity Clear (Clear); Glucose Negative (Negative); Ketones Trace mg/dL (Negative); Leukocyte Esterase Negative (Negative); Nitrite Negative (Negative); Urobilinogen 0.2 EU/dL (Up TO 0.2)
[2020-02-16 14:29] LABS: Bacteria Negative HPF (Negative); C & S Indicated? No; Casts Negative LPF (Negative); Crystals Negative HPF (Negative); Epithelial Cells Negative HPF (Negative); Mucus Trace (Negative); RBC Negative HPF (0-2); WBC 0-2 HPF (0-5)
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
--- NOTE | 2020-02-16 16:00 | PT.INNT ---
Date of service: 02/16/20 Time of Service: 10:38 PT Notes Visit Reasons: Cerebrovascular accident Alejo is firm about not needing any physical therapy services at this time. He currently is not up to doing any exercises and would like to go home as soon as he is safe to do so. Thank you very much for this referral. Shawna Giordano PT, DPT, CLT [facility] at [place], [place]
[2020-02-16 17:08] LABS: Troponin I < 0.05 ng/mL (<0.06)
--- NOTE | 2020-02-16 17:11 | NUR.NOTE ---
Nursing Note: Spoke with MELIZA and Irasema Putnam about patient admission. He has Medicare A & B so is eligible to stay at [facility]. He is not eligible for ambulance transfer coverage. To call to the [place] Notification Hotline about admission. I called this number, spoke with Galilea, and they are notified @ [phone].
--- NOTE | 2020-02-16 18:28 | PDOC.CMSAFED ---
- If Service Date Differs Date of service: 02/16/20 Time of Service: 18:28 Care Management Safety Plan Alejo is a 74 year old male who will be admitted to [facility] [place] following an acute CVA. CM was paged to visit with Alejo while still in the ED due to his suicidal ideation that presented upon evaluation for admission. 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 He has two daughters, one who lives in [facility] and one in [place]. He is close with his daughters, as they are his main supports. He reported to CM that he wished his daughter never called the ambulance today, as he stated that it is time for me to . He also stated that he is not sure how much longer he will be living. CM asked if he had these thoughts due to his medical condition, which he agreed. He reported that he had a stroke in 10/2018, and he mostly recovered, although his eye sight was permanently damaged. He did not expect to have another stroke so soon after his first, and feels that he will not recover. When asked if he was suicidal, he stated that he was. He reported that he knows how to end his life, that he has a plan (he would not share his plan), and that he will take his life because he does not want to live if he is not independent. CM asked what the circumstance would be that he would not want to end his life, and he stated that if he was able to be independent and not have any lasting damage from this second stroke, then he would not be suicidal. Alejo agreed to stay at [facility] for further stroke work up, scheduled in the morning. CM will contact [facility] for a crisis screening tomorrow, once he is medically cleared. He will have a CPSO for his safety tonight, awaiting medical clearance. If he attempts to leave A, please contact Care Management. CM will respond to ED to assess patient after patient has been medically cleared and assessed by screener. If screener deems patient meets criteria for psychiatric stabilization CM will facilitate interdepartmental huddle with [facility] screener for safety planning considerations and meet with patient to review [facility] policy and safety plan, establish individual wishes for treatment and maintain patient rights. In the interim; please note safety plan below to guide patient care while awaiting further assessment. SAFETY PLAN: 1. May remain in hospital gown, while awaiting medical clearance. 2. Will remain in room under direct supervision of one-on-one staff at all times provided by [employer], [employer] sales contractor. 3. May have paper cups, plates, finger foods as well as a cardboard spoon with which to eat meals. 4. Follow [facility] Management of the Admitted Behavioral Health Patient policy. 5. Comfort bath system only. 6. No personal belongings 7. No visitors- d/t Covid restrictions, no visitors at this time. 8. Phone contact: No limitations on incoming/outgoing calls at this time. He may want to talk to his children, who are supportive. 9. Due to VOLUNTARY status, if patient wishes to leave [facility], the [facility] community health worker must be contacted to re-evaluate patient prior to patient exiting the building. If deemed appropriate for inpatient psychiatric care, safety plan will be established with patient, and care team, to adhere to patient goals, identify restrictions based on behavioral status, address nutrition, and determine allowed personal belongings, tools for hygiene and personal care. As well plan will determine level of activity including ambulation, level of supervision, visitors, and determine privileges based on level of acuity, behaviors and level of engagement by patient.
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
[2020-02-16 20:22] LABS: Troponin I < 0.05 ng/mL (<0.06)
[2020-02-16] MEDS: Enoxaparin 40 MG/0.4 ML SYR SC (21:23)
[2020-02-16] MEDS: Simvastatin 40 MG TAB PO (21:25)
[2020-02-16] MEDS: Insulin Aspart 300 UNITS/3 ML PEN SC (21:29)
--- NOTE | 2020-02-17 | DI.MRI_ITS ---
EXAM: MR BRAIN WO CLINICAL HISTORY: CVA TECHNIQUE: Multiplanar multisequence MRI of the brain was performed. COMPARISON: CT CT BRAIN NECK CTA from 02/16/[address] HEAD - STROKE PROTOCOL from 02/16/2020 FINDINGS: VENTRICLES AND EXTRA AXIAL SPACES: Normal in size and morphology for the patient's age. Age appropri ate atrophy. HEMORRHAGE: None. CEREBRAL PARENCHYMA: Old bilateral basal ganglia lacunar infarcts. Old lacunar infarct above the lev el of the right lateral ventricle. White matter changes of small vessel disease. No focus of restri cted diffusion to suggest acute infarct. No space-occupying lesion identified. MIDLINE SHIFT: None. BRAINSTEM/CEREBELLUM: Normal. VISUALIZED PARANASAL SINUSES/MASTOIDS: Clear. Vascular flow voids appear intact. IMPRESSION: Old bilateral lacunar infarcts. No acute abnormality. DATA REPOSITORY:
[2020-02-17 06:42] LABS: Abs Immature Grans 0.01 k/cumm (0.0-0.09); Absolute Eosinophil Count 0.14 k/cumm (0.0-0.7); Absolute Monocyte Count 0.63 k/cumm (0.11-0.7); Absolute Neutrophil Count 3.21 k/cumm (1.2-6.7); Eosinophils % 2.8; HCT 30.8 % (40.0-50.0); Immature Grans % 0.2 %; Lymphocytes % 21.6; Mean Corp. HGB Concentration 32.5 g/dL (32.0-36.0); Mean Corpuscular Volume 92.5 fL (80-95); Mean Platelet Volume 9.6 fL (8.0-11.0); Monocytes % 12.4; Platelet Count 338 x1000/uL (130-400); RBC 3.33 m/cumm (4.50-6.00); RBC Distribution Width 13.6 % (11.8-14.1); White Blood Cell Count 5.09 k/cumm (4.4-10.8)
[2020-02-17 07:27] VITALS: BP 152/71; PULSE 69; RESP 18; TEMP 36.8; O2SAT 97
[2020-02-17 07:49] LABS: Calcium 8.9 mg/dL (8.5-10.1)
[2020-02-17 07:50] LABS: Anion Gap 9.7 mmol/L (3-11); BUN 13 mg/dL (7-18); CO2 23.3 mmol/L (21.0-32.0); CREATININE 0.94 mg/dL (0.70-1.30); Chloride 106 mmol/L (98-107); Glucose 132 mg/dL (74-106); Magnesium 1.9 mg/dL (1.8-2.4); Potassium 3.9 mmol/L (3.5-5.1); Sodium 139 mmol/L (136-145)
[2020-02-17] MEDS: Aspirin E.C. 81 MG TABEC PO (08:22)
[2020-02-17] MEDS: Clopidogrel 75 MG TAB PO (08:22)
[2020-02-17] MEDS: Aspirin 81 MG CHEW PO (08:22)
[2020-02-17] MEDS: Insulin Aspart 300 UNITS/3 ML PEN SC ×3 (08:23→16:59)
[2020-02-17 08:39] LABS: Hemoglobin A1C 7.4 % (3.8-5.6)
[2020-02-17 08:43] LABS: COVID-19 RT-PCR UVMMC Result Negative (Negative)
--- NOTE | 2020-02-17 10:21 | STVN_ITS ---
Date of service: 02/17/20 Time of Service: 10:21 Speech Therapy Visit Note Note: TRANSPORT ASSISTANT called and spoke with scar Johnson regarding TRANSPORT ASSISTANT orders. Nsg stated pt is on a regular texture diet and thin liquids with no noted swallowing difficulties. She also reports pts speech is clear. TRANSPORT ASSISTANT will f/u with scar on Thursday to determine if any further TRANSPORT ASSISTANT needs.
--- NOTE | 2020-02-17 10:21 | W.SPEECHNOTE ---
Date of service: 02/17/20 Time of Service: 10:21 Speech Therapy Visit Note Note: ENTERTAINMENT LAWYER called and spoke with scar Johnson regarding ENTERTAINMENT LAWYER orders. Nsg stated pt is on a regular texture diet and thin liquids with no noted swallowing difficulties. She also reports pts speech is clear. ENTERTAINMENT LAWYER will f/u with scar on Thursday to determine if any further ENTERTAINMENT LAWYER needs.
[2020-02-17 11:59] LABS: Calculated LDL 122 mg/dL (<100); Cholesterol 186 mg/dL (<200); HDL Cholesterol 40 mg/dL (40-60); Triglyceride 122 mg/dL (<150)
[2020-02-17 12:00] VITALS: BP 160/74; PULSE 69; RESP 16; TEMP 37.1; O2SAT 97
--- NOTE | 2020-02-17 14:12 | DM INPTCON_ITS ---
Date of service: 02/17/20 Time of Service: 14:13 Diabetes Inpatient Consult DESCRIPTION/ASSESSMENT: 74 year old male admitted with CVA with left hemisphere ischemic stroke with right hemiparesis with dysphagia. PMH: DM2, HTN, Hyperlipidemia. Met with Alejo today who states that he has managed his BS well over the last 20 years with metformin BID. Receiving novolog SS while in house, BS ranging from 130-210 mg/dl over last two days. Reports weight loss of 15 lbs over last year and now with BMI of 23 wnl. He reports weight loss has helped with BS control. Able to converse well and states he is going home later today. Recent A1C: 7.4% indicates adequate BS control. Currently following Diabetic/heart Healthy soft bite diet. MOLECULAR SPECTROSCOPIST consult pending. Alejo and nursing report no difficulty in swallowing at this time. Skin intact, no concerns with dentition. Estimated Needs: [id number] kcal, 74-88 g protein, 2220 ml fluid INTERVENTION: Provided education on DM including Hyper/hypoglycemia s/s with action plan for each scenario. Definition and types of CHO with examples, CHO counting, DASH diet materials, DM meal planning and label reading literature. Provided a blood sugar and food record chart and materials to reiterate CHO counting techniques. Reviewed desirable BG levels with patient with food choices and portions for optimal outcomes. Provided contact information for this RD and encouraged him to call with any f/u questions r/t to DM self management. CDM from kitchen has been helping to count CHO's and achieve intake of ~65g/CHO per meal period. PLAN: conitinue current meal plan, follow up in OP setting if needs assistance in Diabetic Self Management. Time Spent in Nutritional Counseling and Treatment: 10 min
--- NOTE | 2020-02-17 14:59 | PDOC.MHCN ---
Date of service: 02/17/20 Time of Service: 13:29 Mental Health Crisis Note Presenting Issue How did you arrive at the ED and why did you come: Clt had a stroke. He SI statements yesterday and [facility] requested an [facility] assessment. Precipitating Factors The clt had a stroke over a year ago and then had his 2nd stroke. The clt made a statement that if he couldn't live the way he wanted he was going to end it all. The clt said that he made the statement out of frustration with no real intent. The CM mentioned that the clt had shown improvement since yesterday. The clt was oriented times 4. Disposition BEHAVIOR: Clt was cooperative and engaged. EYE CONTACT: Good MOOD: The clt was responsive and smiled at appropriate times. AFFECT: Pleasant APPETITE: Good SLEEP(trouble falling/staying asleep: Better Plan The clt had no real intent but also the clt showed significant improvement in one day. If the clt had not improved, I question whether there was some truth to the statement. Clt sees physical ability as a strong sense of self. Presently, the clt denies any SI and is currently recovering with strong family support. The clt doesn't have interest in pursuing any mental health services. The clt will be given information on how to access ES services should the clt see the need. Signature Clinician's Name/Title: Farhan Oliva MS
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
--- NOTE | 2020-02-17 18:19 | PDOC.CMDIS ---
- If Service Date Differs Date of service: 02/17/20 Time of Service: 18:19 LACE Index Scoring Tool - Questions: Length of Stay (in days): 2 Acuity (Admit via E.D.?): Yes Comorbidities: Cerebrovascular Disease, Diabetes w/o Complication E.D. Visits: 1 - Answers: Total Score: 8 Risk of Readmission: Low Risk Care Management Discharge Reason for Hospitalization: CVA Discharge Plan: Alejo will return home with no additional services at this time. He will follow up with his PCP and Palliative care. He will be driven home by his daughter via private vehicle. He is happy to be going home. Patient/Family Education Needs: Review discharge instructions regarding activity levels and medications, discussion of goals of care.
== END 2020-02-17 17:46 | disposition home or self-care (01) ==
LOC: ER 17:12 → MS 18:48
PROVIDERS: Admitting Provider Internal Medicine; Emergency Provider Emergency Medicine; PCP Physician Assistant Medical; Visit Provider Internal Medicine
DX: I63.312 Cerebral infarction due to thrombosis of left middle cerebral artery (principal); R47.01 Aphasia; I10 Essential (primary) hypertension; R45.851 Suicidal ideations; E78.5 Hyperlipidemia, unspecified; E11.9 Type 2 diabetes mellitus without complications; F10.10 Alcohol abuse, uncomplicated; Z79.84 Long term (current) use of oral hypoglycemic drugs; Z86.73 Personal history of transient ischemic attack (TIA), and cerebral infarction without residual deficits; Z85.72 Personal history of non-Hodgkin lymphomas; F17.210 Nicotine dependence, cigarettes, uncomplicated; M54.5 Low back pain; Z66 Do not resuscitate
CPT/HCPCS: 36415; 36416; 70496; 70498; 80048; 80053; 80061; 82962; 93005; 93306; 96360; 96361; 99215; 99217; 99220; 99223; 99255; 99285; J1650; U0003; 70450; 70551; 71045; 81003; 81015; 83036; 83735; 84484; 85025; 93010; G0378

== ENCOUNTER 2020-03-16 03:48 | Outpatient (CLI) | payer OTHER, SELFPAY ==
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
== END 2020-03-16 04:08 ==
PROVIDERS: PCP Physician Assistant Medical; Visit Provider Nurse Practitioner Adult Health
DX: M25.552 Pain in left hip (principal); M16.0 Bilateral primary osteoarthritis of hip; Z92.3 Personal history of irradiation
CPT/HCPCS: 73502

== ENCOUNTER 2021-03-07 01:50 | Outpatient (CLI) | payer OTHER, SELFPAY ==
--- NOTE | 2021-03-07 | DI.MRI_ITS ---
Exam(s) MR LUMBAR SPINE WO EXAM: MR LUMBAR SPINE WO CLINICAL HISTORY: LOW BACK PAIN,CHANGE IN GAIT,[id number]. TECHNIQUE: Multiplanar multisequence MRI of the Lumbar spine was performed. Field of view includes T11 through S3. COMPARISON: no prior spinal exams for comparison. FINDINGS: Bones: The last intervertebral disc space is designated the L5/S1 level for the numbering purpose of this examination. There is mild to moderate compression of the superior endplate of T12 which appears old. The marrow signal shows mainly fatty marrow. No suspicious masses. Conus medullaris appears normal. Severe degenerative disc changes, eccentric toward the left with prominent left-sided osteophytes and asymmetric disc space narrowing at L2-3 and L3-4. Degenerative disc changes are asymmetric toward t he right at L4-5 and L5-S1. The findings cause mild scoliosis. T12-L1 through L1-2 levels show mild disc bulging and small endplate osteophytes. Mild left neural f oraminal narrowing L1-2. Prominent disc osteophytes at L2-3 and L3-4. Combine with facet degenerative change to to produce se jody left neural foraminal narrowing. Severe neural foraminal narrowing is seen on the right at L3-4 through L5-S1. There is mild central canal stenosis at L3-4 and moderate central canal stenosis at L4-5. Moderate neural foraminal encroachment is seen on the right side at L5-S1 secondary to a combi nation of facet and disc osteophytes. No disc herniation is seen at any level. IMPRESSION: [id number] compression of the superior endplate of T12, old. Multilevel degenerative disc changes and facet degenerative changes causing bilateral neural foramina l narrowing and scoliosis. Mild central canal stenosis is seen at L3-4 moderate central canal stenosis is present at L4-5. DATA REPOSITORY:
== END 2021-03-07 02:10 ==
PROVIDERS: PCP Physician Assistant Medical; Visit Provider Nurse Practitioner Family
DX: M47.817 Spondylosis without myelopathy or radiculopathy, lumbosacral region (principal); M48.061 Spinal stenosis, lumbar region without neurogenic claudication; S22.080D Wedge compression fracture of T11-T12 vertebra, subsequent encounter for fracture with routine healing; X58.XXXD Exposure to other specified factors, subsequent encounter
CPT/HCPCS: 72148

== ENCOUNTER 2023-11-10 20:57 | Inpatient (IN) | payer OTHER, SELFPAY ==
[2023-11-10] VITALS (26 sets, daily range): BP systolic 143–174; BP diastolic 64–87; PULSE 65–85; RESP 13–28; TEMP 36.8; O2SAT 78–99
--- NOTE | 2023-11-10 20:45 | RT.EKG_ITS ---
APPROVED REPORT Exam: Resting ECG Reason for Exam: sob Patient Location: E HR:71 bpm ECG Measurements Heart Rate 71 AXIS GA 170 P 26 QRSd 84 QRS 54 QT 380 T 67 QTc 413 Conclusion Sinus rhythm...normal P axis, V-rate 60- 99 Atrial premature complex...SV complex w/ short R-R interval Physician: no stemi
--- NOTE | 2023-11-10 21:00 | DI.CT_ITS ---
Exam(s) CT HEAD WO EXAM: CT HEAD WO CLINICAL HISTORY: ams, hx of prior strokes. TECHNIQUE: Imaging Protocol: Axial computed tomography images with coronal and sagittal reformatted images were created and reviewed CT CT HEAD - STROKE PROTOCOL from 02/16/[address] BRAIN NECK CTA from 02/16/2020 FINDINGS: Ventricles and Extra axial spaces: Normal in size and morphology for the patient's age. Hemorrhage: None. Cerebral parenchyma: There are areas of decreased attenuation in the white matter consistent with chr onic microvascular ischemic disease. There are old bilateral basal gangliar lacunar infarcts. Since the prior examination there is an area of decreased attenuation in the left cesar radiata suggestin g interval infarct. There is no acute midline shift or hemorrhage. Midline shift: None. Brainstem/Cerebellum: Normal. Calvarium: Normal. Visualized Paranasal sinuses/Mastoids: Clear. Soft Tissues: Unremarkable. IMPRESSION: 1. Findings of chronic microvascular ischemic disease and old bilateral infarcts. 2. If clinically indicated, an MRI may be obtained to assess for any evidence of acute infarct. RADIATION DOSE DELIVERED: Total DLP DATA REPOSITORY: All CT scans at this facility are submitted to the National Radiology Data Registry (NRDR) Dose Index Registry (DIR) with the [employer] (ACR). RADIATION OPTIMIZATION: All CT scans at this facility use at least one of these dose optimization te chniques: automated exposure control; mA and/or kV adjustment per patient size (includes targeted exa ms where dose is matched to clinical indication); or iterative reconstruction.
--- NOTE | 2023-11-10 21:00 | DI.RAD_ITS ---
Exam(s) XR CHEST 2V PA LATERAL EXAM: XR CHEST 2V PA LATERAL CLINICAL HISTORY: ams TECHNIQUE: 2D digital imaging was performed of the chest. Four images were obtained. PA and latera l views were obtained. COMPARISON: CR XR CHEST 1V IN DI DEPT from 02/16/2020 FINDINGS: MEDIASTINUM: Normal. HEART: Normal. PULMONARY VASCULATURE: Normal. LUNGS: The lungs appear hyperinflated with flattened diaphragms suggesting underlying COPD. No focal consolidating infiltrates are present. PLEURAL SPACE: No pleural effusion or pneumothorax. BONE:Within normal limits for the patient's age. OTHER FINDINGS:Normal. IMPRESSION: No acute pulmonary findings. DATA REPOSITORY: RADIATION DOSE DELIVERED:
--- NOTE | 2023-11-10 21:12 | ED.GENADUL_ITS ---
Discharge Plan Disposition Patient Disposition: [facility] Condition: Stable Discharge Details Chief Complaint: AMS/LOC Clinical Impression: Dysarthria Primary Care Provider: Savana Del Real ED Provider: Sonu Khan Home Meds and New Rx's Prescriptions: No Action metformin [Glucophage] 1,000 MG tablet 1 tab PO BID clopidogrel [Plavix] 75 mg tablet 75 mg PO DAILY Qty: 30 0RF methocarbamol 500 mg Tablet 500 mg PO DAILY aspirin 81 mg Tablet,Delayed Release (Dr/Ec) 81 mg PO DAILY Qty: 0 0RF simvastatin 40 mg Tablet 40 mg PO QPM Qty: 30 0RF HPI General Date/Time Provider Initiated Documentation: 11/10/23 21:07 . HPI Narrative: 77-year-old male history of prior CVA hypertension diabetes presents brought in by EMS after daughter called as patient is slightly off from his baseline history greatly limited by patient's prior deficits Related Data Home Medications Medication Instructions Recorded Confirmed metformin 1,000 mg tablet 1 tab PO BID 03/25/14 11/10/23 (Glucophage) clopidogrel 75 mg tablet (Plavix) 75 mg PO DAILY #30 tabs 10/08/18 11/10/23 methocarbamol 500 mg tablet 500 mg PO DAILY 02/16/20 11/10/23 aspirin 81 mg tablet,delayed 81 mg PO DAILY #0 tabs 02/17/20 11/10/23 release simvastatin 40 mg tablet 40 mg PO QPM #30 tabs 02/17/20 11/10/23 Previous Rx's Medication Instructions Recorded clopidogrel 75 mg tablet (Plavix) 75 mg PO DAILY #30 tabs 10/08/18 aspirin 81 mg tablet,delayed 81 mg PO DAILY #0 tabs 02/17/20 release simvastatin 40 mg tablet 40 mg PO QPM #30 tabs 02/17/20 Allergies Allergy/AdvReac Type Severity Reaction Status Date / Time tetracycline [Tetracycline] Allergy Severe Anaphylaxsi Unverified 11/10/23 21:05 s mussels Allergy Severe Anaphylaxsi Uncoded 11/10/23 21:05 s General Stated Complaint: AMS/LOC ALEX: 3 Review of Systems Narrative: Review of Systems Constitutional: Altered mental status Eyes: negative ENT: negative Cardiovascular: negative Respiratory: negative Gastrointestinal: negative : negative Musculoskeletal: negative Skin: negative Neurologic: negative Psych: negative Exam Narrative Exam Narrative: Physical Examination General: awake, cooperative, resting comfortably, no acute distress HEENT: normocephalic, atraumatic; PERRL, EOM intact, conjunctiva normal; no nasal discharge; slight drying of oral mucosa Neck: supple, trachea midline; full ROM Chest: normal to inspection Respiratory: normal respiratory effort, speaking in full sentences, clear to auscultation, no wheezing, rales or rhonchi Cardiac: regular rate, regular rhythm, S1S2 intact, no murmurs rubs or gallops GI: abdomen soft, non-tender, non-distended; no palpable mass or hepatosplenomegaly Skin: no lesions, rashes or trauma appreciated Neuro: Alert, interactive, following commands, speech limited by expressive aphasia/dysarthria, 4 out of 5 strength upper extremity on the right, 5 out of 5 strength upper extremity on the left, no truncal ataxia; 4 out of 5 strength right lower extremity, 5 out of 5 strength left lower extremity Extremities: Chronic appearing contracture right upper extremity Course Vital Signs Vital signs: Vital Signs Temperature 36.8 C 11/10/23 20:59 Pulse 78 11/10/23 20:59 Respiratory Rate 28 H 11/10/23 20:59 Pulse Oximetry 98 11/10/23 20:59 Temperature 36.8 C 11/10/23 20:59 Temperature Source Oral 11/10/23 20:59 Pulse 78 11/10/23 20:59 Respiratory Rate 28 H 11/10/23 20:59 Respiratory Effort Normal, Non-Labored 11/10/23 21:05 Blood Pressure Position Sitting 11/10/23 20:59 Pulse Oximetry 98 11/10/23 20:59 Oxygen Delivery Method Room Air 11/10/23 20:59 Oxygen Flow Rate 0 11/10/23 20:59 Pain Level 0 11/10/23 20:59 Medical Decision Making 77-year-old male history of prior CVA diabetes hypertension presents brought in by EMS for evaluation of change from baseline per daughter, patient alert interactive following commands, appears to have chronic deficits on right side with 4 out of 5 strength right upper and right lower extremity, expressive aphasia and dysarthria prominent and limiting history, will obtain stat blood glucose, CT head, EKG, basic labs, toxicologic labs, flu COVID RSV swab, light fluid given dry oral mucosa, consider dehydration versus UTI versus viral illness must also consider intracerebral hemorrhage versus less likely new CVA versus less likely seizure. Disposition pending reassessment and results, will attempt to contact family for collateral information Was able to obtain further collateral from patient's daughter who states that patient lives alone in an off the grid [place], concerned that he has not been taking his medications, noted change in his speech predominantly starting last Thursday. Family concerned about his functional status and independence. CT head negative for acute ischemic CVA or intracerebral hemorrhage, evidence of prior CVA. Will admit patient for MRI and further neurologic evaluation. Patient is outside any interventional window from an endovascular or thrombolytic standpoint. No deterioration here in department. Remains alert oriented interactive Quality:SDOH Health Related Social Needs: No Data to Display PFSH All Active Problems (Updated 11/10/23 @ 22:52 by Sonu Khan MD) Dysarthria (Acute) Back pain (Acute) Aphasia (Acute) Suicidal ideation (Acute) TIA (transient ischemic attack) (Acute) Hypersomnia (Acute) Dysphagia (Acute) Blurred vision (Acute) Memory loss (Acute) Right hemiparesis (Acute) Hypertension (Chronic) Alcohol abuse (Chronic) Discharge planning issues (Acute) Fracture of humerus, left, closed (Acute) Diabetes (Chronic) Hyperlipidemia (Acute) CVA (cerebral vascular accident) (Chronic) Medical History (Updated 11/10/23 @ 22:52 by Sonu Khan MD) Palliative care patient Radiation burn Hx of lymphoma Diabetes Hyperlipidemia Surgical History H/O lymph node excision Family History Mother Bipolar disorder Social History Smoking/Tobacco Use Status: Current every day Tobacco Type: cigarettes Smoking risk assessment performed?: Yes Alcohol Intake: current Alcohol Intake frequency: 0-2 drinks per day Drug use: Occasionally Substance use type: does not use Household members: none Number of Children: 2 current occupation: [employer] Do you feel safe at home: Yes Do you feel safe in your relationship?: Yes
[2023-11-10] MEDS: Normal Saline 500 ML 1000 ML IV (21:28)
[2023-11-10 21:32] LABS: Abs Immature Grans 0.02 10^3/uL (0.0-0.06); Absolute Basophil Count 0.02 10^3/uL (0.0-0.2); Absolute Eosinophil Count 0.04 10^3/uL (0.0-0.7); Absolute Lymphocyte Count 1.19 10^3/uL (1.2-3.4); Absolute Monocyte Count 0.54 10^3/uL (0.1-0.8); Absolute Neutrophil Count 4.54 10^3/uL (1.2-6.7); Basophils % 0.3; Eosinophils % 0.6; HCT 34.5 % (40.0-50.0); HGB 11.6 g/dL (13.5-17.5); Immature Grans % 0.3; Lymphocytes % 18.7; MCH 30.9 pg (27.0-33.0); MCHC 33.6 % (32.0-36.0); MCV 92 fL (80-95); MPV 9.4 fL (8.0-11.0); Monocytes % 8.5; Neutrophils % 71.6; Platelet Count 398 10^3/uL (130-400); RBC 3.75 10^6/uL (4.36-5.78); RDW 13.6 % (11.8-14.1); RDW-SD 46.3 fL; WBC 6.35 10^3/uL (4.4-10.8)
[2023-11-10 21:47] LABS: Bilirubin Negative (Negative); Blood Negative (Negative); Clarity Clear (Clear); Glucose Negative (Negative); Ketones Trace mg/dL (Negative); Leukocyte Esterase Negative (Negative); Nitrite Negative (Negative); Specific Gravity >= 1.030 (1.005-1.025); Urobilinogen 0.2 mg/dL (Up to 0.2)
[2023-11-10 21:52] LABS: Bacteria Negative HPF (Negative); Crystals Negative HPF (Negative); Epithelial Cells Negative HPF (Negative); RBC 0-2 HPF (0-2); WBC 0-2 HPF (0-5)
[2023-11-10 21:53] LABS: C & S Indicated? No; Casts Negative LPF (Negative); Mucus Trace (Negative)
--- NOTE | 2023-11-10 21:55 | NUR.NOTE ---
report given to WILFRID Horn and care relinquished
[2023-11-10 22:01] LABS: ALT 18 U/L (16-63); AST 19 U/L (15-37); Albumin 3.6 g/dL (3.4-5.0); Alkaline Phosphatase 84 U/L (46-116); Anion Gap 12.1 mmol/L (3-11); BUN 18 mg/dL (7-18); Bilirubin, Total 0.3 mg/dL (0.2-1.0); CO2 24.9 mmol/L (21.0-32.0); CREATININE 1.4 mg/dL (0.70-1.30); Calcium 9.3 mg/dL (8.5-10.1); Chloride 106 mmol/L (98-107); Estimated GFR 51.45 (mL/min/1.73m2); Glucose 140 mg/dL (74-106); Magnesium 1.8 mg/dL (1.8-2.4); Potassium 4.1 mmol/L (3.5-5.1); Sodium 143 mmol/L (136-145); TSH (W/Ref FT4) 5.54 uIU/mL (0.36-3.74); Total Protein 7.6 g/dL (6.4-8.2)
[2023-11-10 22:02] LABS: ETHANOL BLOOD < 3.0 mg/dL (<10)
[2023-11-10 22:08] LABS: *AMPHETAMINES SCREEN URINE Negative (Negative); *BARBITURATES SCREEN URINE Negative (Negative); *BENZODIAZEPINES SCREEN URINE Negative (Negative); Cannabinoids THC Negative (Negative); Cocaine Screen,Urine Negative (Negative); METHADONE URINE SCREEN Negative (Negative); OPIATES URINE SCREEN Negative (Negative)
[2023-11-10 22:09] LABS: INR 1.1 (0.9-1.1)
[2023-11-10 22:10] LABS: Tricyclic Antidepressants Negative (Negative)
[2023-11-10 22:18] LABS: COVID-19 PCR Negative (Negative); Influenza A PCR Negative (Negative); Influenza B PCR Negative (Negative); RSV PCR Negative (Negative); Source NASOPHARYNX
--- NOTE | 2023-11-10 22:31 | DI.VRAD_ITS ---
PROCEDURE INFORMATION: Exam: XR Chest Exam date and time: 11/10/2023 10:05 PM Age: 77 years old Clinical indication: Altered mental status TECHNIQUE: Imaging protocol: Radiologic exam of the chest. Views: 2 views. COMPARISON: CR XR CHEST 1V IN DI DEPT 02/16/2020 1:19 PM FINDINGS: Lungs: Unremarkable. No consolidation. Pleural spaces: Unremarkable. No pleural effusion. No pneumothorax. Heart/Mediastinum: Unremarkable. No cardiomegaly. Bones/joints: Unremarkable. IMPRESSION: No acute findings. Dictated and Authenticated by: Nieves Lovell MD. Ordering:PCORINNE Ascencio MD
--- NOTE | 2023-11-10 22:31 | DI.VRAD_ITS ---
PROCEDURE INFORMATION: Exam: CT Head Without Contrast Exam date and time: 11/10/2023 9:59 PM Age: 77 years old Clinical indication: AMS, HX of prior strokes TECHNIQUE: Imaging protocol: Computed tomography of the head without contrast. COMPARISON: MR BRAIN WO 02/17/2020 11:51 AM FINDINGS: Brain: There is no acute intracranial hemorrhage, mass effect or midline shift. No large acute territorial infarct identified. There are patchy regions of hypodensity in the periventricular and subcortical white matter, likely on the basis of chronic microvascular ischemic disease. There are small hypodensities in the bilateral basal ganglia and thalami, suggestive of remote lacunar infarcts. Encephalomalacia in the left basal ganglia is suggestive of old insult in this region Cerebral ventricles: The ventricles and sulci are prominent in size, which is at least in part due to global cerebral volume loss. Paranasal sinuses: Visualized sinuses are unremarkable. No fluid levels. Mastoid air cells: Visualized mastoid air cells are well aerated. Bones/joints: Unremarkable. No acute fracture. Soft tissues: Unremarkable. IMPRESSION: 1. No acute intracranial hemorrhage, mass effect or midline shift. 2. Evidence of old infarcts. Dictated and Authenticated by: Nieves Lovell MD. Ordering:TREY Ascencio MD
[2023-11-10 22:44] LABS: FREE T4 1.04 ng/dL (0.76-1.46)
--- NOTE | 2023-11-10 23:07 | HPE_ITS ---
Date of service: 11/10/23 Time of Service: 23:07 Assessment and Plan Assessment and plan (1) Stroke: Status: Chronic Assessment and plan: Probably has had another stroke, manifesting more as mild anterior aphasia, though not entirely clear whether this may be more a dysarthria. Regardless, will resume DUAP, obtain MRI, and carotid U/S and place on Telemetry; consult Neuro. Will allow a degree of permissive HTN (note no h/o HTN). Patient also appears dry and will gently hydrate. History of Present Illness History of Present Illness Chief Complaint: speech disturbance Narrative: 77 male with h/o stroke, re[portedly non-compliant with medication (DUAP) -- brought to ER by family for change in speech starting some 4-5 days ago. Note that history is obtained from ER reports as family is not present at this time. In ER findings of note for old right sided weakness and what is described as a combination of dyarthria or expressive aphasia. Head CT shows multiple old lacunar infarcts of basal ganglia. I was asked to evaluate for admission. Patient is unable to provide any meaningful history but does say that he is not in any discomfort. Agrees that he is having some trouble with his speech but cannot elaborate. Review of Systems Narrative: per HPI PFSH All Active Problems (Updated 11/10/23 @ 23:16 by Asif Lock MD) Stroke (Chronic) Dysarthria (Acute) Back pain (Acute) Aphasia (Acute) Suicidal ideation (Acute) TIA (transient ischemic attack) (Acute) Hypersomnia (Acute) Dysphagia (Acute) Blurred vision (Acute) Memory loss (Acute) Right hemiparesis (Acute) Hypertension (Chronic) Alcohol abuse (Chronic) Discharge planning issues (Acute) Fracture of humerus, left, closed (Acute) Diabetes (Chronic) Hyperlipidemia (Acute) CVA (cerebral vascular accident) (Chronic) Medical History Palliative care patient Radiation burn Hx of lymphoma Diabetes Hyperlipidemia Surgical History H/O lymph node excision Family History Mother Bipolar disorder Social History Smoking/Tobacco Use Status: Current every day Tobacco Type: cigarettes Smoking risk assessment performed?: Yes Alcohol Intake: current Alcohol Intake frequency: 0-2 drinks per day Drug use: Occasionally Substance use type: does not use Household members: none Number of Children: 2 current occupation: [employer] Do you feel safe at home: Yes Do you feel safe in your relationship?: Yes Meds Allergies and Home Medications Allergies Allergy/AdvReac Type Severity Reaction Status Date / Time tetracycline [Tetracycline] Allergy Severe Anaphylaxsi Unverified 11/10/23 21:05 s mussels Allergy Severe Anaphylaxsi Uncoded 11/10/23 21:05 s Home Medications Medication Instructions Recorded Confirmed Type metformin 1,000 mg tablet 1 tab PO BID 03/25/14 11/10/23 History (Glucophage) clopidogrel 75 mg tablet (Plavix) 75 mg PO DAILY #30 tabs 10/08/18 11/10/23 Rx methocarbamol 500 mg tablet 500 mg PO DAILY 02/16/20 11/10/23 History aspirin 81 mg tablet,delayed 81 mg PO DAILY #0 tabs 02/17/20 11/10/23 Rx release simvastatin 40 mg tablet 40 mg PO QPM #30 tabs 02/17/20 11/10/23 Rx Exam Narrative Exam Narrative: 166/64, 69, 36.8, 17, 99% RA. HEENT atraumatic, oral mucosa dry; neck supple; lungs clear; heart RRR; abdomen soft and NT; extremities w/o edema; neuro comprehension intact and able to follow commands, repetition intact, speech is slow and halting, though no srinivasan errors, CN: PERRL, EOMI, rosario full, right central facial (old per ER), tongue midline; motor 4/5 right hemiparesis; toes downgoing Results Labs 11/10/23 21:20 11/10/23 21:20 Labs: Laboratory Results - last 24 hr 11/10/23 11/10/23 11/10/23 21:15 21:20 21:40 WBC 6.35 RBC 3.75 L Hgb 11.6 L Hct 34.5 L MCV 92 MCH 30.9 MCHC 33.6 RDW 13.6 Plt Count 398 MPV 9.4 Immature Gran % 0.3 Neutrophils % 71.6 Lymphocytes % 18.7 Monocytes % 8.5 Eosinophils % 0.6 Basophils % 0.3 Nucleated RBC % 0.0 Absolute Neutrophils 4.54 Absolute Lymphocytes 1.19 L Absolute Monocytes 0.54 Absolute Eosinophils 0.04 Absolute Basophils 0.02 PT INR APTT Sodium 143 Potassium 4.1 Chloride 106 Carbon Dioxide 24.9 Anion Gap 12.1 H BUN 18 Creatinine 1.4 H Est GFR (CKD-EPI 2020) 51.45 Glucose 140 H Calcium 9.3 Magnesium 1.8 Total Bilirubin 0.3 AST 19 ALT 18 Alkaline Phosphatase 84 Total Protein 7.6 Albumin 3.6 TSH 5.54 H Free T4 1.04 Urine Color Yellow Urine Clarity Clear Urine pH 6.0 Ur Specific [place] >= 1.030 H Urine Protein 30 H Urine Ketones Trace H Urine Blood Negative Urine Nitrite Negative Urine Bilirubin Negative Urine Urobilinogen 0.2 Ur Leukocyte Esterase Negative Urine RBC 0-2 Urine WBC 0-2 Ur Epithelial Cells Negative Urine Crystals Negative Urine Bacteria Negative Urine Casts Negative Urine Mucus Trace Ur Culture Indicated? No Urine Glucose Negative Urine Opiates Screen Negative Urine Methadone Screen Negative Ur Barbiturates Screen Negative Ur Tricyclics Screen Negative Ur Amphetamines Screen Negative U Benzodiazepines Scrn Negative Urine Cocaine Screen Negative Ur THC Screen Negative Ethyl Alcohol < 3.0 COVID-19 Source NASOPHARYNX SARS-CoV-2 (PCR) Negative Influenza Type A (PCR) Negative Influenza Type B (PCR) Negative RSV (PCR) Negative 11/10/23 21:47 WBC RBC Hgb Hct MCV MCH MCHC RDW Plt Count MPV Immature Gran % Neutrophils % Lymphocytes % Monocytes % Eosinophils % Basophils % Nucleated RBC % Absolute Neutrophils Absolute Lymphocytes Absolute Monocytes Absolute Eosinophils Absolute Basophils PT 11.0 INR 1.1 APTT 23.0 L Sodium Potassium Chloride Carbon Dioxide Anion Gap BUN Creatinine Est GFR (CKD-EPI 2020) Glucose Calcium Magnesium Total Bilirubin AST ALT Alkaline Phosphatase Total Protein Albumin TSH Free T4 Urine Color Urine Clarity Urine pH Ur Specific [place] Urine Protein Urine Ketones Urine Blood Urine Nitrite Urine Bilirubin Urine Urobilinogen Ur Leukocyte Esterase Urine RBC Urine WBC Ur Epithelial Cells Urine Crystals Urine Bacteria Urine Casts Urine Mucus Ur Culture Indicated? Urine Glucose Urine Opiates Screen Urine Methadone Screen Ur Barbiturates Screen Ur Tricyclics Screen Ur Amphetamines Screen U Benzodiazepines Scrn Urine Cocaine Screen Ur THC Screen Ethyl Alcohol COVID-19 Source SARS-CoV-2 (PCR) Influenza Type A (PCR) Influenza Type B (PCR) RSV (PCR) Last Vital Signs Temp 36.8 C 11/10/23 20:59 Pulse 69 11/10/23 22:21 Resp 17 11/10/23 22:30 BP 166/64 H 11/10/23 22:21 Pulse Ox 99 11/10/23 22:30 Time Spent Time spent with Patient: 40-54 minutes Time was spent: preparing to see the patient(eg.review tests), obtaining and/or reviewing separately otained hiistory, ordering medications,tests, procedures, referring, communicating with other health intensive care medicine specialist and indepentently interpreting results
[2023-11-11] VITALS (15 sets, daily range): BP systolic 127–157; BP diastolic 57–82; PULSE 64–72; RESP 13–20; TEMP 36.1–36.9; O2SAT 96–98
[2023-11-11] MEDS: Lactated Ringers 1,000 ML 80 ML IV ×2 (01:21→15:43)
[2023-11-11 08:00] LABS: Hemoglobin A1C 7.4 % (<5.7)
--- NOTE | 2023-11-11 08:49 | INITIAL_ITS ---
Date of service: 11/11/23 Care Management Initial Assmt Initial Assessment REASON FOR HOSPITALIZATION:: Stroke PREVIOUS FUNCTIONAL STATUS/SOCIAL/FAMILY SUPPORTS:: Alejo lives alone in [place] with dog Lizette. CURRENT FUNCTIONAL STATUS:: Alejo was sitting up in bed eating when meeting with CM. Alejo said the person who was visiting earlier was his friend, he says it is the same friend who he was on the phone with that recognized there was something not right and called an ambulance. Alejo says this friend lives close by and checks in on him when he is able to. Alejo states he also had a stroke a few years back. Alejo shares his daughters will be here to visit [facility]. CM asked minimal questions as Alejo said it is difficult for him to talk. CM following. ADVANCE DIRECTIVES:: EBONI Stephens Has patient been provided with info about the portal/API?: Yes Did the patient sign up for the portal?: No CODE STATUS:: Full Code INSURANCE COVERAGE / FINANCIAL ISSUES:: [place] PRIMARY CARE PHYSICIAN:: Savana Del Real PATIENT/FAMILY EDUCATION NEEDS:: Review discharge instructions and limitations, discussion of self care needs including Ask Me Three TRANSPORTATION:: Alejo will transport via private vehicle PLAN:: Alejo will transport home once medically cleared via private vehicle. He will follow up with his PCP and discharge plan of care. CM will continue to follow. PFSH All Active Problems LINDSEY (acute kidney injury) (Acute) On deep vein thrombosis (DVT) prophylaxis (Acute) Stroke (Chronic) Dysarthria (Acute) Back pain (Acute) Aphasia (Acute) Suicidal ideation (Acute) TIA (transient ischemic attack) (Acute) Hypersomnia (Acute) Dysphagia (Acute) Blurred vision (Acute) Memory loss (Acute) Right hemiparesis (Acute) Hypertension (Chronic) Alcohol abuse (Chronic) Discharge planning issues (Acute) Fracture of humerus, left, closed (Acute) Diabetes (Chronic) Hyperlipidemia (Acute) CVA (cerebral vascular accident) (Chronic) Medical History Palliative care patient Radiation burn Hx of lymphoma Diabetes Hyperlipidemia Surgical History H/O lymph node excision Family History Mother Bipolar disorder Social History Smoking/Tobacco Use Status: Current every day Tobacco Type: cigarettes Smoking risk assessment performed?: Yes Alcohol Intake: current Alcohol Intake frequency: 0-2 drinks per day Drug use: Occasionally Substance use type: does not use Household members: none Housing: house Number of Children: 2 current occupation: [employer] Do you feel safe at home: Yes Do you feel safe in your relationship?: Yes SDOH(Care Management) Screening Will the Patient Participate in the Screening?: Yes Do you worry about having a steady place to live?: no Problems where you live: no known problems In the past 12 months, have you had to go without electric, gas, oil or water in your home?: no Have you or anyone in your house had to go without enough food to eat?: no Has lack of transportation kept you from medical appointments or from doing things needed for daily living?: no Has anyone in your support network made you feel unsafe for any reason?: no Health Related Social Needs Health related social needs details: might need help from home health due to stroke, unable to be steady on gait.
[2023-11-11] MEDS: Methocarbamol 500 MG TAB PO (09:24)
[2023-11-11] MEDS: Aspirin 81 MG CHEW PO (09:24)
[2023-11-11] MEDS: metFORMIN 500 MG TAB 1000 MG PO ×2 (09:24→16:30)
[2023-11-11] MEDS: Clopidogrel 75 MG TAB PO (09:24)
--- NOTE | 2023-11-11 10:30 | DI.US_ITS ---
Exam(s) US CAROTID EXAM: US CAROTID CLINICAL HISTORY: stroke. TECHNIQUE: Ultrasound carotids performed using grayscale, color-flow, and spectral Doppler imaging. COMPARISON: US US carotid from 10/07/2018 FINDINGS: RIGHT CAROTID ARTERY: Plaque: [id number] atherosclerosis is seen in the carotid bulb and the proximal right internal carotid artery. Velocity elevation: None. LEFT CAROTID ARTERY: Plaque: [id number] calcific plaque is seen in the carotid bulb and the origin of the external c arotid artery. Velocity elevation: None. VERTEBRAL ARTERIES: Antegrade flow. Measurements: R Bulb: 55.6cm/s PS / 11.5cm/s ED R CCA: 77.6cm/s PS / 15.4cm/s ED R ECA: 77.9cm/s PS / 0cm/s ED R ICA Prox: 44.1cm/s PS / 8.4cm/s ED R ICA Mid: 60cm/s PS / 14cm/s ED R ICA Distal: 72.8cm/s PS /16.2cm/s ED R Vert: 39.2cm/s PS / 5.4cm/s ED R SVR: 0.9 R DVR: 1.1 L Bulb: 51.1cm/s PS / 10.8cm/s ED L CCA: 70.9cm/s PS / 10.8cm/s ED L ECA: 125.8cm/s PS / 0cm/s ED L ICA Prox: 59.9cm/s PS / 13.4cm/s ED L ICA Mid: 71.4cm/s PS / 14.4cm/s ED L ICA Distal: 85.8cm/s PS / 20.5cm/s ED L Vert: 58.9cm/s PS / 14.3cm/s ED L SVR: 1.2 L DVR: 1.9 IMPRESSION: No evidence for hemodynamically significant carotid stenosis. Criteria for Carotid Stenosis: Normal: ICA PSV <125 cm/s no plaque or intimal thickening is visible. <50% stenosis: ICA PSV <125 cm/s and plaque or intimal thickening is visible. 50-69% stenosis: ICA PSV is 125-250 cm/s and plaque is visible. >70% stenosis to near occlusion: ICA PSV >250 cm/s with visible plaque and luminal narrowing. DATA REPOSITORY:
--- NOTE | 2023-11-11 12:00 | DI.MRI_ITS ---
Exam(s) MR BRAIN WO EXAM: MR BRAIN WO CLINICAL HISTORY: stroke TECHNIQUE: Multiplanar multisequence MRI of the brain was performed. COMPARISON: MR MR BRAIN WO from 02/17/[address] HEAD WO from 11/10/2023 FINDINGS: VENTRICLES AND EXTRA AXIAL SPACES: Normal in size and morphology for the patient's age. MIDLINE SHIFT: None. CEREBRAL PARENCHYMA: There is an area of restricted diffusion seen in the left cesar radiata consist ent with an acute infarct. No space-occupying lesion identified. There are areas of hyperintense sig nal seen on the FLAIR and T2 weighted images in the white matter consistent with chronic microvascula r ischemic disease. HEMORRHAGE: None. BRAINSTEM/CEREBELLUM: Normal. CALVARIUM: Normal. VISUALIZED PARANASAL SINUSES/MASTOIDS:Clear. [place]: Normal flow void. PITUITARY GLAND: Unremarkable. OTHER FINDINGS: None. IMPRESSION: 1. Findings of an acute infarct involving the left cesar radiata. 2. Cerebral atrophy and chronic microvascular ischemic disease. 3. The findings were discussed with WILFRID Rhodes at 12:17 p.m. on 11/11/2023. DATA REPOSITORY:
--- NOTE | 2023-11-11 12:10 | DI.MRI_ITS ---
Exam(s) MR ANGIO BRAIN WO CLINICAL HISTORY: CVA. TECHNIQUE: Multiplanar multisequence MRA of the brain was performed. COMPARISON: MR MR brain wo from 10/07/2018 MR MR BRAIN WO from 02/17/2020 MR MR BRAIN WO from 11/11/2023 FINDINGS: Carotid Arteries: No aneurysm, occlusion or significant stenosis. Anterior Cerebral Arteries: Right: No aneurysm is seen. There is an area of an occlusion in the mid A2 segment of the right ant erior cerebral artery. Left: No aneurysm, occlusion or significant stenosis. Middle Cerebral Arteries: Right: No aneurysm, occlusion or significant stenosis. Left: No occlusion or aneurysm. There is an area of 70-80 percent stenosis in a M2 segment of the l eft middle cerebral artery. Posterior Cerebral Arteries: Right: No aneurysm or occlusion. There are areas of stenosis seen in the right posterior cerebral a rtery. Left: No aneurysm or occlusion. There are mild areas of stenosis seen in the left posterior cerebra l artery. Vertebral Arteries: Right: No aneurysm, occlusion or significant stenosis. Left: No aneurysm, occlusion or significant stenosis. Basilar Artery: No aneurysm, occlusion or significant stenosis. IMPRESSION: 1. Multiple areas of less than 50 percent stenosis as described above. 2. 70-80 percent stenosis seen in a left middle cerebral artery M2 segment. 3. Short segment of occlusion in the mid A2 segment of the right anterior cerebral artery with recons titution distally. DATA REPOSITORY:
--- NOTE | 2023-11-11 12:35 | DI.MRI_ITS ---
Exam(s) MR ANGIO NECK WO EXAM: MR ANGIO NECK WO CLINICAL HISTORY: CVA. TECHNIQUE: Multiplanar multisequence MRA of the Neck was performed. COMPARISON: No exams were available for comparison FINDINGS: Common Carotid: Right: No dissection, occlusion or significant stenosis. Left: No dissection, occlusion or significant stenosis. External Carotid: Right: No evidence of occlusion or significant stenosis. Left: No evidence of occlusion or significant stenosis. Internal Carotid: Right: No dissection, occlusion or significant stenosis. Left: No dissection or occlusion. There is less than 50 percent narrowing of the proximal left inter nal carotid artery. Vertebral Artery: Right: No dissection, occlusion or significant stenosis. Left: No dissection, occlusion or significant stenosis. The visualized paraspinal soft tissues are unremarkable. IMPRESSION: No evidence of dissection, occlusion or significant stenosis. DATA REPOSITORY:
--- NOTE | 2023-11-11 13:37 | PGE_ITS ---
Date of Service Date of service: 11/11/23 Time of Service: 13:37 Assessment and Plan Assessment and plan (1) Stroke: Status: Chronic Assessment and plan: New left parietal infarct as per MRI with findings of acute infartct involving the left cesar radiata Loading Plavix as symptoms started 4-5 days Continue daily Plavix Continue statin, ASA Continue permissive HTN Continue tele Carotid US : mild to moderate atherosclerosis to both carotids w/o velocity elevation. Vertebral arteries showed antegrade flow Echo with bubble pending MRA head: Multiple areas of less than 50 percent stenosis as described above. 70-80 percent stenosis seen in a left middle cerebral artery M2 segment. Short segment of occlusion in the mid A2 segment of the right anterior ce rebral artery with reconstitution distally. MRA neck:No evidence of dissection, occlusion or significant stenosis Neurology consultL: Please see notes Might refuse 30-day machine cloth trimmer on discharge Palliative care consult: to determine goals PT Speech pathology OT Palliative care (2) Diabetes: Status: Chronic Assessment and plan: Continue glucometers checks AC and HS, ISS, and metformin A1C 7.4 (3) Hypertension: Status: Chronic Assessment and plan: Permissive HTN (4) LINDSEY (acute kidney injury): Status: Acute Assessment and plan: Continue IVF BMP in AM (5) On deep vein thrombosis (DVT) prophylaxis: Status: Acute Assessment and plan: LEO's (6) Discharge planning issues: Status: Acute Assessment and plan: CM to f/u: Palliative consult and would like to get the family involved in the decisions as neurology mentioned expressive and some degree of receptive aphasia. Discussed with Dr. Charles Subjective Subjective Patient reports: no new complaints, feels better, tolerating liquids well, tolerating a regular diet, voiding w/o difficulty, flatus and no bowel movement; denies still having pain, diarrhea, nausea, vomiting, shortness of breath or fever Exam Narrative Exam Narrative: Constitutional The patient is sitting in chair/ lying in bed comfortable and cooperative during the interview. The patient is well groomed without acute distress and has average body habitus/is obese/ is thin. HENMT: Head is atraumatic, normocephalic, no lymphadenopathy. Facial structures with normal appearance Eyes: Well aligned, intact ROM Neck: Normal ROM, no meningeal signs Neuro:alert and oriented to self, person, place, time and situation.Right side droop, no neglect, PERRLA on ambient light, no focal weakness, cranial nerves intact except weak cough via vagal nerve questionably Chest:Chest is symmetrical and normal appearance Resp: Normal respiratory pattern, speaks in full sentences, unlabored breathing, clear lung bilaterally Cardio: regular rhythm, S1, S2, no murmur, positive radial and pedal pulses GI: Abdomen is not distended, soft and non tender, bowel sounds are present : Negative Costovertebral angle tenderness, no bladder distension Back/spine/Pelvis: No back tenderness, normal alignment Integumentary: No skin lesions or rash Extremities: strength 5/5 to bilateral lower and upper extremities on push and pull, 4/5 on right shoulder elevation Psych: RASS 0, congruent mood and normal affect. Objective Last Vital Signs Temp 36.1 C L 11/11/23 08:19 Pulse 65 11/11/23 08:19 Resp 18 11/11/23 08:19 BP 148/69 H 11/11/23 08:19 Pulse Ox 97 11/11/23 09:00 Laboratory Results - last 24 hr 11/10/23 11/10/23 11/10/23 21:15 21:20 21:40 WBC 6.35 RBC 3.75 L Hgb 11.6 L Hct 34.5 L MCV 92 MCH 30.9 MCHC 33.6 RDW 13.6 Plt Count 398 MPV 9.4 Immature Gran % 0.3 Neutrophils % 71.6 Lymphocytes % 18.7 Monocytes % 8.5 Eosinophils % 0.6 Basophils % 0.3 Nucleated RBC % 0.0 Absolute Neutrophils 4.54 Absolute Lymphocytes 1.19 L Absolute Monocytes 0.54 Absolute Eosinophils 0.04 Absolute Basophils 0.02 PT INR APTT Sodium 143 Potassium 4.1 Chloride 106 Carbon Dioxide 24.9 Anion Gap 12.1 H BUN 18 Creatinine 1.4 H Est GFR (CKD-EPI 2020) 51.45 Glucose 140 H Hemoglobin A1c 7.4 H Calcium 9.3 Magnesium 1.8 Total Bilirubin 0.3 AST 19 ALT 18 Alkaline Phosphatase 84 Total Protein 7.6 Albumin 3.6 TSH 5.54 H Free T4 1.04 Urine Color Yellow Urine Clarity Clear Urine pH 6.0 Ur Specific [place] >= 1.030 H Urine Protein 30 H Urine Ketones Trace H Urine Blood Negative Urine Nitrite Negative Urine Bilirubin Negative Urine Urobilinogen 0.2 Ur Leukocyte Esterase Negative Urine RBC 0-2 Urine WBC 0-2 Ur Epithelial Cells Negative Urine Crystals Negative Urine Bacteria Negative Urine Casts Negative Urine Mucus Trace Ur Culture Indicated? No Urine Glucose Negative Urine Opiates Screen Negative Urine Methadone Screen Negative Ur Barbiturates Screen Negative Ur Tricyclics Screen Negative Ur Amphetamines Screen Negative U Benzodiazepines Scrn Negative Urine Cocaine Screen Negative Ur THC Screen Negative Ethyl Alcohol < 3.0 COVID-19 Source NASOPHARYNX SARS-CoV-2 (PCR) Negative Influenza Type A (PCR) Negative Influenza Type B (PCR) Negative RSV (PCR) Negative 11/10/23 21:47 WBC RBC Hgb Hct MCV MCH MCHC RDW Plt Count MPV Immature Gran % Neutrophils % Lymphocytes % Monocytes % Eosinophils % Basophils % Nucleated RBC % Absolute Neutrophils Absolute Lymphocytes Absolute Monocytes Absolute Eosinophils Absolute Basophils PT 11.0 INR 1.1 APTT 23.0 L Sodium Potassium Chloride Carbon Dioxide Anion Gap BUN Creatinine Est GFR (CKD-EPI 2020) Glucose Hemoglobin A1c Calcium Magnesium Total Bilirubin AST ALT Alkaline Phosphatase Total Protein Albumin TSH Free T4 Urine Color Urine Clarity Urine pH Ur Specific [place] Urine Protein Urine Ketones Urine Blood Urine Nitrite Urine Bilirubin Urine Urobilinogen Ur Leukocyte Esterase Urine RBC Urine WBC Ur Epithelial Cells Urine Crystals Urine Bacteria Urine Casts Urine Mucus Ur Culture Indicated? Urine Glucose Urine Opiates Screen Urine Methadone Screen Ur Barbiturates Screen Ur Tricyclics Screen Ur Amphetamines Screen U Benzodiazepines Scrn Urine Cocaine Screen Ur THC Screen Ethyl Alcohol COVID-19 Source SARS-CoV-2 (PCR) Influenza Type A (PCR) Influenza Type B (PCR) RSV (PCR) Time Spent with Patient Time Spent with Patient: >50 minutes Time was spent: preparing to see the patient(eg.review tests), obtaining and/or reviewing separately otained hiistory, ordering medications,tests, procedures, referring, communicating with other health director of health care marketing, indepentently interpreting results, counseling the patient and care coordination
[2023-11-11] MEDS: Clopidogrel 75 MG TAB 225 MG PO (13:49)
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
--- NOTE | 2023-11-11 16:26 | CHAPLAIN ---
Alejo was sitting up in his bed having a late lunch when I visited. We had a brief conversation. I explained my role and offered support. Alejo was pleasant, but not interested in further conversation.
[2023-11-11] MEDS: Docusate Sodium 100 MG/10 ML CUP PO (16:30)
[2023-11-11 17:12] LABS: Anion Gap 13.3 mmol/L (3-11); BUN 15 mg/dL (7-18); CO2 24.7 mmol/L (21.0-32.0); CREATININE 1.4 mg/dL (0.70-1.30); Calcium 9.1 mg/dL (8.5-10.1); Chloride 103 mmol/L (98-107); Estimated GFR 51.45 (mL/min/1.73m2); Glucose 154 mg/dL (74-106); Sodium 141 mmol/L (136-145)
[2023-11-11] MEDS: Simvastatin 40 MG TAB PO (20:56)
[2023-11-11] MEDS: Melatonin 3 MG TAB 6 MG PO (20:56)
--- NOTE | 2023-11-11 22:00 | RT.EKG_ITS ---
APPROVED REPORT Exam: Resting ECG Reason for Exam: Rule out ST elevation Patient Location: I HR:71 bpm ECG Measurements Heart Rate 71 AXIS VT 197 P -6 QRSd 130 QRS 73 QT 384 T 70 QTc 418 Conclusion Sinus rhythm...normal P axis, V-rate 50- 99 Nonspecific intraventricular conduction delay...QRSd >115mS, not LBBB/RBBB Inferior infarct, acute (LCx)...ST>0.10mV, II III aVF, STd V1-V3
[2023-11-11 23:07] LABS: Troponin I < 50 ng/L (< or =60)
[2023-11-12] MEDS: Atorvastatin 40 MG TAB PO (00:37)
[2023-11-12 02:56] VITALS: BP 141/79; PULSE 79; RESP 18; TEMP 36.3; O2SAT 96
[2023-11-12] MEDS: Lactated Ringers 1,000 ML 80 ML IV ×2 (04:35→17:42)
[2023-11-12 08:00] VITALS: BP 160/72; PULSE 76; RESP 18; TEMP 36.6; O2SAT 99
[2023-11-12] MEDS: Docusate Sodium 100 MG/10 ML CUP PO (08:00)
[2023-11-12] MEDS: Clopidogrel 75 MG TAB PO (08:00)
[2023-11-12] MEDS: Aspirin 81 MG CHEW PO (08:00)
[2023-11-12] MEDS: metFORMIN 500 MG TAB 1000 MG PO ×2 (08:00→17:42)
[2023-11-12] MEDS: Methocarbamol 500 MG TAB PO (08:00)
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
[2023-11-12 09:32] LABS: Anion Gap 9.4 mmol/L (3-11); BUN 15 mg/dL (7-18); CO2 23.6 mmol/L (21.0-32.0); CREATININE 1.2 mg/dL (0.70-1.30); Calcium 8.8 mg/dL (8.5-10.1); Chloride 108 mmol/L (98-107); Glucose 124 mg/dL (74-106); Sodium 141 mmol/L (136-145); Troponin I < 50 ng/L (< or =60)
--- NOTE | 2023-11-12 10:05 | PDOC.CMPRO ---
Date of service: 11/12/23 Care Management Progress Note Progress Note Text Progress Note Text: S/O: Alejo was sitting up in bed meeting with his friend Segun when CM arrived. CM questioned going over discharge planning during the visit or at a later time, Alejo said it was ok to discuss while Segun present. CM discussed possible SNF placement that Alejo did say he would do, however, he was reminded from Segun that daughter Dina offered for Alejo to stay with her just was not sure what medical services he may need. CM provided phone number to give to Dina so was able to discuss with Dina that yes her dad could come stay with her, or her sister Aaliyah, and their moms boyfriend Paul has offered to stay with Alejo at his house incase he needs anything as well. Further discharge plans will be more clear with more PT assessment information. CM following. A: Alejo is a 77 year old male admitted to [facility] for a stroke. P: Alejo will discharge home when medically cleared via private vehicle. He will follow up with his PCP and plan of care as prescribed. CM following. SDOH(Care Management) Screening Will the Patient Participate in the Screening?: Yes Do you worry about having a steady place to live?: no Problems where you live: no known problems In the past 12 months, have you had to go without electric, gas, oil or water in your home?: no Have you or anyone in your house had to go without enough food to eat?: no Has lack of transportation kept you from medical appointments or from doing things needed for daily living?: no Has anyone in your support network made you feel unsafe for any reason?: no Health Related Social Needs Health related social needs details: might need help from home health due to stroke, unable to be steady on gait.
[2023-11-12 10:09] LABS: Abs Immature Grans 0.02 10^3/uL (0.0-0.06); Absolute Basophil Count 0.02 10^3/uL (0.0-0.2); Absolute Lymphocyte Count 1.64 10^3/uL (1.2-3.4); Absolute Monocyte Count 0.74 10^3/uL (0.1-0.8); Basophils % 0.3; Eosinophils % 1.5; HCT 29.8 % (40.0-50.0); HGB 10.1 g/dL (13.5-17.5); Immature Grans % 0.3; Lymphocytes % 24.4; MCH 31.7 pg (27.0-33.0); MCHC 33.9 % (32.0-36.0); MCV 93 fL (80-95); MPV 9.6 fL (8.0-11.0); Neutrophils % 62.5; Platelet Count 364 10^3/uL (130-400); RBC 3.19 10^6/uL (4.36-5.78); RDW 13.8 % (11.8-14.1); RDW-SD 47.1 fL; WBC 6.72 10^3/uL (4.4-10.8)
[2023-11-12 10:29] LABS: Calculated LDL 109 mg/dL (<100); Cholesterol 174 mg/dL (<200); HDL Cholesterol 41 mg/dL (40-60); Triglyceride 120 mg/dL (<150)
[2023-11-12] MEDS: Barium Sulfate 40% W/V 1500 CPS 250 ML BTL PO (10:30)
[2023-11-12] MEDS: Barium Sulfate Oral Paste 40% W/V 230 ML TUBE 13 ML PO (10:31)
[2023-11-12] MEDS: Barium Sulfate 81% w/w for Oral Suspension 148 GM BTL 90 GM PO (10:32)
--- NOTE | 2023-11-12 10:35 | DI.RAD_ITS ---
Exam(s) RF MODIFIED SPEECH BA SWALLOW TECHNIQUE: Modified barium swallow was performed in conjunction with speech pathology. CONTRAST MATERIAL: Oral barium Oral water soluble contrast was administered. COMPARISON: No exams were available for comparison FINDINGS: Fluoroscopy was provided during modified barium swallow study performed our department in conjunction with the speech therapist. There was aspiration with thin liquids noted on today's study. See separate speech therapist report IMPRESSION: Positive for aspiration with thin liquids RADIATION DOSE DELIVERED: evelyn Medina=4.37 mGy
--- NOTE | 2023-11-12 11:13 | SP_ITS ---
Date of service: 11/12/23 Time of Service: 08:15 Subjective Clinical (Bedside) Swallow Evaluation Speech Language Pathology Referred by: Dr Charles Referral Type: Clinical Swallow Evaluation; Aphasia Evaluation Reason for Referral/HPI: Alejo Stephens is a 77 yo male who was adm 11/10/23 with aphasia and dysarthria. MRI revealed acute CVA in the L cesar radiata. He has a history of prior strokes in 10/2018 with recurrent symptoms (though negative imaging) in January 2020. ENERGY ENGINEER IMPRESSIONS & RECOMMENDATIONS: Alejo presents with moderate expressive aphasia and at least moderate oral pharyngeal dysphagia. Dysphagia Findings: Oral mechanism examination reveals R labial weakness, with facial droop and intermittent anterior spillage. A clinical swallow evaluation was completed during breakfast, while the patient was upright in a chair, tolerating room air, and self-feeding. He demonstrated frequent/consistent coughing with thin liquids, fully eliminated with trials of mildly thick liquid. Alejo agreed that the thicker liquid was 'better'. With solids, Alejo required prompting to take pause and swallow before taking a new bite as he was observed to eat quickly and bring spoon to mouth while his mouth was still full. Even with single bites, Alejo demonstrated frequent coughing after the swallow with soft solids (scrambled eggs, diced fruit, oatmeal). He endorsed pharyngeal residue and stated it was 'hard to swallow', noting this was a new symptom. No coughing was appreciated with puree solids (yogurt/pudding). Diet modification and strict aspiration precautions indicated as outlined below. Highly recommend modified barium swallow study, to be completed today- additional recommendations forthcoming. Aphasia Findings: While not formally assessed this date, Alejo presents with expressive aphasia characterized as phrase to short sentence length responses. Alejo spoke primarily in 1-2 word phrases, though did demonstrate some spontaneous longer sentences (eg It's hard going down). Repetition is intact. Spontaneous/automatic responses were more fluent vs answering questions. With answering questions, Alejo did best given field of 2 options (eg Would you like pudding or yogurt?) vs open-ended questions. In regards to receptive language, Alejo was able to follow all instructions without difficult today - no evidence of receptive aphasia noted in conversation. Only trace to mild dysarthria appreciated, intelligibility for spoken language is 100%. No semantic/phonemic paraphasias noted in conversation, though patient with frequent pausing/inability to retrieve the target word, with some frustration noted. FURTHER ENERGY ENGINEER SERVICES: Patient to be followed while on unit. Upon Discharge, recommend ENERGY ENGINEER services at home health vs [facility] Diet Recommendations: SOLIDS: 4-Pureed Solids LIQUIDS: 2-Mildly Thick Liquids MEDICATIONS: Whole with applesauce Alter medications only as advised by MD or Pharmacist RISK MANAGEMENT: [place] upright 90 degrees for meals. Up in chair for meals as able. Oral hygiene before/after PO intake using friction with toothbrush on all oral structures as tolerated Level of Assistance/Supervision: 1:1 close supervision for all PO intake Strategies: Reduce auditory and/or visual distractions when eating Provide verbal and/or tactile cues to pause between each bite and swallow before taking another Small sips and bites when eating Slow rate of intake Posture/Positioning Needs: Maintain upright position at least 30 minutes after meals Education Provided to: Nursing, Patient Topics Addressed: ENERGY ENGINEER findings and recommendations and aspiration precautions SUBJECTIVE: Patient received alert/awake, agreeable to evaluation Pain Reported? 0/10 Baseline Swallow Function: Patient denies swallowing difficulty prior to admission and eats a regular diet at baseline. PO Trials Assessed: IDDSI 0 Thin Liquids (via cup and straw) IDDSI 2 Mildly Thick Liquid (via cup and straw) IDDSI 4 Puree Solid (yogurt, custard) IDDSI 5 Minced and Moist Solid (oatmeal with syrup, scrambled eggs cut up) IDDSI 6 Soft & Bite Size Solid (diced fruit) Oral Mechanism Examination: Dentition is sparse- no upper dentition, some lower dentition. Labial weakness and asymmetry on R side. Oral mucosa is Moist. Cranial Nerve Assessment: CN V ? Trigeminal Facial Sensation WNL Jaw Strength/ROM WNL ?WNL CN VII- Facial Labial weakness/asymetry on R side. WNL lingual sensation Impaired CN IX ? Glossopharyngeal WNL palatal elevation with phonation. No evidence of nasal emissions WNL CN X ? Vagus WNL Vocal quality and volume. Strong/sharp volitional cough WNL CX XII ? Hypoglossal WNL lingual ROM, strength, coordination WNL Oral Phase Findings: Difficulty with bolus manipulation Difficulty chewing Noted to take additional bites when oral cavity still full Pharyngeal Phase Findings: Delayed swallow initiation Cough after swallow with thins and solids except purees Voice change after swallow? Endorsed stasis with solids and after pills ? ASSESSMENT: Further ENERGY ENGINEER Services indicated- patient to be followed while on unit Recommendation at Discharge: ENERGY ENGINEER Services at Snf Facility vs ENERGY ENGINEER Services via Home Health Suggested Referrals: N/A Recommended Procedures: MBSS PLAN: Frequency: 3-5x/week for 1-2 weeks Goals: Ag Service Manager Goals: Patient will remain free from aspiration-related illness, malnutrition, and dehydration. Patient/family will verbalize comprehension of education provided re: dx dysphagia and aphasia strategies to maximize functioning, and role of ST. Short Term Goals: Patient will participate in ongoing diagnostic treatment addressing areas of expressive/receptive language. Patient will tolerate L4 Puree Diet and Mildly thick liquids without overt s/s aspiration across 2/2 visits. Patient will tolerate PO trials for consideration of diet upgrade without overt s/s aspiration across 2/2 visits. ENERGY ENGINEER CPT Code: 47612 Clinical Swallowing Evaluation TOTAL TIME: 45 Minutes
[2023-11-12 11:36] VITALS: BP 147/70; PULSE 65; RESP 18; TEMP 36.9; O2SAT 99
--- NOTE | 2023-11-12 13:06 | W.PM.PROGNOT ---
Date of Service Date of service: 11/12/23 Time of Service: 13:06 Assessment and Plan Assessment and plan (1) Stroke: Status: Chronic Assessment and plan: New left parietal infarct as per MRI with findings of acute infarct involving the left cesar radiata, followed by neurology Was loaded with Plavix Continue daily Plavix Continue statin, ASA Carotid US : mild to moderate atherosclerosis to both carotids w/o velocity elevation. Vertebral arteries showed antegrade flow Echo with bubble pending MRA head: Multiple areas of less than 50 percent stenosis as described above. 70-80 percent stenosis seen in a left middle cerebral artery M2 segment. Short segment of occlusion in the mid A2 segment of the right anterior cerebral artery with reconstitution distally. MRA neck:No evidence of dissection, occlusion or significant stenosis Neurology consult: Please see notes Might refuse 30-day commercial real estate manager on discharge Palliative care consult: to determine goals PT Speech pathology OT Palliative care (2) Diabetes: Status: Chronic Assessment and plan: Continue glucometers checks AC and HS, ISS, and metformin A1C 7.4 (3) Hypertension: Status: Chronic Assessment and plan: Blood pressures have been controlled (4) LINDSEY (acute kidney injury): Status: Acute Assessment and plan: Stop IVF Follow BMP (5) On deep vein thrombosis (DVT) prophylaxis: Status: Acute Assessment and plan: LEO's (6) Discharge planning issues: Status: Acute Assessment and plan: Case management following for discharge planning. Anticipate home with home health services versus skilled rehab facility Discussed with Dr. Charles Subjective Subjective Patient reports: no new complaints and afebrile; denies tolerating liquids well (Coughing and choking with p.o. intake), tolerating a regular diet or shortness of breath Exam Narrative Exam Narrative: Elderly male of stated age no acute distress head is atraumatic. Right-sided facial droop, he is awake alert able to respond appropriately breath with some mild dysarthria, responses are slow neck is supple no JVD cardiovascular regular rate and rhythm respirations even and unlabored breath sounds diminished in the bases abdomen is soft nontender he moves all extremities but mild right-sided weakness. Skin with no rashes or lesions Objective Last Vital Signs Temp 36.9 C 11/12/23 11:36 Pulse 65 11/12/23 11:36 Resp 18 11/12/23 11:36 BP 147/70 H 11/12/23 11:36 Pulse Ox 99 11/12/23 11:36 Laboratory Results - last 24 hr 11/11/23 11/11/23 11/11/23 16:55 22:40 Unknown WBC RBC Hgb Hct MCV MCH MCHC RDW Plt Count MPV Immature Gran % Neutrophils % Lymphocytes % Monocytes % Eosinophils % Basophils % Nucleated RBC % Absolute Neutrophils Absolute Lymphocytes Absolute Monocytes Absolute Eosinophils Absolute Basophils Sodium 141 Potassium 4.0 Chloride 103 Carbon Dioxide 24.7 Anion Gap 13.3 H BUN 15 Creatinine 1.4 H Est GFR (CKD-EPI 2020) 51.45 Glucose 154 H Calcium 9.1 Troponin I < 50 Triglycerides Total Cholesterol LDL Cholesterol, Calc HDL Cholesterol Add-On Test Request TNP 11/12/23 05:56 WBC 6.72 RBC 3.19 L Hgb 10.1 L Hct 29.8 L MCV 93 MCH 31.7 MCHC 33.9 RDW 13.8 Plt Count 364 MPV 9.6 Immature Gran % 0.3 Neutrophils % 62.5 Lymphocytes % 24.4 Monocytes % 11.0 Eosinophils % 1.5 Basophils % 0.3 Nucleated RBC % 0.0 Absolute Neutrophils 4.20 Absolute Lymphocytes 1.64 Absolute Monocytes 0.74 Absolute Eosinophils 0.10 Absolute Basophils 0.02 Sodium 141 Potassium 4.0 Chloride 108 H Carbon Dioxide 23.6 Anion Gap 9.4 BUN 15 Creatinine 1.2 Est GFR (CKD-EPI 2020) 61.90 Glucose 124 H Calcium 8.8 Troponin I < 50 Triglycerides 120 Total Cholesterol 174 LDL Cholesterol, Calc 109 H HDL Cholesterol 41 Add-On Test Request Time Spent with Patient Time Spent with Patient: 25-34 minutes Time was spent: preparing to see the patient(eg.review tests), obtaining and/or reviewing separately otained hiistory, ordering medications,tests, procedures, referring, communicating with other health child care coordinator, indepentently interpreting results, counseling the patient and care coordination
--- NOTE | 2023-11-12 14:13 | ST.MBS ---
Date of Service Date of service: 11/12/23 Time of Service: 10:00 Modified Barium Swallow Study Findings: Video fluoroscopic Swallowing Evaluation (VFSE) / Modified Barium Swallow Study (MBSS) Speech Language Pathology Report Patient referred for VFSE/MBSS from Sarah Teran NP, secondary to acute dysphagia s/p CVA HPI & Patient report of function: Patient is a 77 yo male adm 11/10/23 with 4-5 days of speech changes. 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 Alejo presents today with moderate expressive aphasia, WFL receptive language, and dysphagia symptoms at bedside including significant coughing episodes with thin liquids and with all non-pureed solids. He has history of past CVA, though reports aphasia/dysphagia symptoms are new. PMHx: Hx past CVAs, hx alcohol abuse, diabetes, hyperlipidemia, hx lymphoma Previous Imaging: MRI of the brain: 1. Findings of an acute infarct involving the left cesar radiata. 2. Cerebral atrophy and chronic microvascular ischemic disease. 3. The findings were discussed with WILFRID Rhodes at 12:17 p.m. on 11/11/2023. CXR 11/10/23: no acute findings IMPRESSIONS: Alejo Stephens presents with moderate oral pharyngeal sensorimotor dysphagia. Primary impairment is discoordination, which is noted within both the oral and pharyngeal phase, including disorganized chewing/mashing, slowed tongue motion for bolus transport, and delayed swallow initiation (bolus reaches pyriforms prior to swallow initiation). This results in consistent deep penetration of thin liquids to the level of vocal records, with momentary aspiration below the vocal cords, and very strong cough reflex ejecting the bolus. With solids, there is no residue with pudding, but significant vallecular and pyriform residue with soft solids (fig do cookie). Despite adequate duration of mashing/chewing, there is concern for unchewed pieces, in light of lingual discoordination exacerbated by no upper dentition. Sensation of pharyngeal residue does appear in-tact, though is not cleared with dry swallows. Given prompt to take sip of liquid, bolus does clear. Laryngeal elevation and pharyngeal stripping wave appear mildly diminished, though overall Alejo's oral pharyngeal strength appears relatively intact, with discoordination as the primary deficit. At bedside earlier this morning, Alejo demonstrated very high prevalence of coughing with soft and minced solids (peaches, cut up scrambled eggs, oatmeal). Paired with MBSS findings, anticipate he is experiencing high pharyngeal residue spillover into the airway. Overall, though aspiration and choking risk are heightened, risk can be mitigated with diet modifications and strict aspiration precautions. - see recommendations below. As Alejo's laryngeal cough reflex appears strongly intact, anticipate he can be upgraded (solids & liquids) at bedside as indicated. Supervision is indicated in light of observed behaviors of rapid and large bolus intake, though given frequent verbal prompting (every 2-3 bites) and occasional tactile prompting (hand over hand to pause next bite), Alejo is able to pause between bites to swallow. Swallow safety is impaired; swallow efficiency is impaired. Clinical Indicator(s) of Prandial/Postprandial Aspiration include: Cough, Wet vocal quality Patient appears to be at moderate risk for potential aspiration PNA and/or pulmonary compromise and low risk for malnutrition, low risk for dehydration. Diet modification is indicated; non-oral nutrition is not indicated. Swallow prognosis is good given: recency of acute event, fair to good insight Patient appears to be a good candidate for behavioral swallow rehabilitation. RECOMMENDATIONS: Diet Texture Recommendation:? IDDSI LEVEL 4-Pureed Solids LIQUIDS 2-Mildly Thick Liquids MEDICATIONS Whole with 4-Puree Diet texture modification is per patient's preference; please adjust diet textures at patient's discretion & collaboration with care team. Do not alter medications (e.g., cut)? without advice from your MD or pharmacist. Risk Management Strategies:? Small bites, approx [id number] Small sips, approx 10 mL Frequent verbal reminders to pause between each bite and clear oral cavity before taking another Tactile prompting as needed to slow rate of intake (hand over hand to pause feeding and ask to swallow prior to next bite) [place] upright 90 degrees for PO - upright in chair for meals as able Oral hygiene before and after meals Control risk factors for aspiration pneumonia via (a) thorough oral hygiene & (b) maintaining physical mobility as tolerated PLAN: [employer] will continue to follow while inpatient; ongoing [employer] services indicated at time of discharge (HH vs SNF) Goals: See [employer] evaluation OBJECTIVE Videofluoroscopic Swallow Evaluation (VFSE/MBSS) was conducted in the lateral[ and [id number]] projection by Speech-Language Pathologist, in collaboration with Radiologist, to evaluate oropharyngeal swallow function. Anatomic view under fluoroscopy: WFL PO Barium Contrast Trials Oral barium water-soluble contrast was administered as follows: IDDSI Level 0 Varibar thin liquid (40% w/v) IDDSI Level 2 Varibar nectar thick/mildly thick liquid (40% w/v) IDDSI Level 4 Varibar pudding/pureed/extremely thick (40% w/v) IDDSI Level 6 Soft Solid: Fig Do Cookie coated in 3 mL Varibar pudding MBSImP Component Scores: COMPONENT Scale SCORE 1 Lip closure (0-4) 2 Resulted in escape from interlabial space or lateral juncture, but no extension beyond vermilion border 2 Hold Position (0-3) 3 Allowed posterior escape of greater than half of the bolus 3 Bolus Preparation (0-4) 2 Demonstrated disorganized chewing/mashing with solid pieces of bolus unchewed 4 Bolus Transport (0-4) 2 Was with slowed tongue motion 5 Oral Residue (0-4) 1 Was a trace, lining oral structures 6 Swallow Initiation (0-4) 3 Occurred when the bolus head was in the pyriform sinuses 7 Soft Palate Elevation (0-4) 0 Resulted in no bolus between soft palate and the pharyngeal wall 8 Laryngeal Elevation (0-3) 1 Was decreased with partial superior movement of thyroid cartilage/partial approximation of arytenoids to epiglottic petiole 9 Anterior Hyoid Motion (0-2) 0 Demonstrated complete anterior movement 10 Epiglottic Movement (0-2) 0 Resulted in complete inversion 11 Laryngeal Closure (0-2) 0 Was complete with no air or contrast in laryngeal vestibule 12 Pharyngeal Stripping Wave (0-2) 1 Was present, but diminished 13 Pharyngeal Contraction (0-3) NA 14 PES Opening (0-3) 1 Demonstrated partial distension/partial duration, with partial obstruction of flow 15 Tongue Base Retraction (0-4) 1 Allowed a trace column of contrast or air between tongue base and pharyngeal wall 16 Pharyngeal Residue (0-4) 2 Was a collection of residue within or on pharyngeal structures 17 Esophageal Clearance (0-4) NA Results: COMPONENT Scale SCORE 1 Oral Score (0-18) 10 2 Pharyngeal Score (0-29) 5 3 Esophageal Score (0-4) 0 Penetration-Aspiration Scale: COMPONENT Scale SCORE 1 Thin liquid (1-8) 6 Contrast entered the airway, passed below the vocal folds, and was ejected into the larynx or out of the airway. 2 [place] thick (1-8) 1 Contrast did not enter the airway 3 Honey thick (1-8) NA 4 Pudding thick (1-8) 1 Contrast did not enter the airway 5 Cookie (1-8) 1 Contrast did not enter the airway Trialed Compensatory Strategies & Outcome: Maneuvers Successful (+) Unsuccessful (-) Postures Successful (+) Unsuccessful (-) 3 second Preparatory Set? ? -- Chin Tuck Posture? ? -- Cough? ? Posterior Head tilt? Reflexive? ? + ? Cued? Throat Clear? ? Head Tilt to? Reflexive? Left? Cued? Right? ? Saliva swallow? ? Head Turn/Rotate to? ? Supraglottic Swallow? Left? ? Super-supraglottic Swallow? Right? ? Bolus Modifications Successful (+) Unsuccessful (-) Delivery/Alternating Consistencies ? Follow with Liquid Wash + ? Follow with Solid Bolus? Delivery/Via Straw? ? Reduced Volume? ? + Reduced Rate of Intake? + ? Increased Viscosity? ? + Other:?? ? Thank you for allowing us to take part in this patient's care. Please feel free to contact the [facility] Speech Language Pathology Department with any questions/concerns.
[2023-11-12] MEDS: Docusate Sodium 100 MG CAP PO ×2 (14:35→19:50)
--- NOTE | 2023-11-12 15:07 | PTTR_ITS ---
PT Notes Visit Reasons: Stroke Date: 11/12/23 PRECAUTIONS: Fall. Standard. Activity as tolerated. SUBJECTIVE: Pt in bed when approached for therapy this afternoon, nurse reports pt was very unstable during [facility], pt reports he understand the need for working with his balance, agreed to working with therapy despite recent position change. OBJECTIVE: ?IV line on left antecubital? PAIN: none reported VITALS: closely monitored by nursing Therapeutic Activities [id number]: Direct one-on-one instruction in dynamic activities to improve functional performance. ?? BED MOBILITY/TRANSFERS? Rolling L/R: Supervision Supine-sit: SBA? Sit-supine: SBA ? Sit-stand: min A ? Stand-sit: ??CGA ? Bed-Chair:? SBA? Chair-bed: SBA Provided skilled cues and instruction on performance and technique throughout. Gait Training [id number]: Direct one-on-one instruction and skilled instruction in: Employing an assistive device Modified weight-bearing status Movement sequencing Turning and movement with proper form Provided verbal cues for equipment management and technique Provided instruction in gait pattern Patient education regarding pacing and breathing techniques to maximize activity tolerance? GAIT? Assistive Device: FWW ? Weight bearing: FWB Assist: CGA? Distance:??5'x5 from EOB to room recliner ?vice versa ? Deviation: ?Stoop forward posture hemiplegic gait pattern ? Neuromuscular Re-education [id number]: Activities that facilitate re-education of movement balance, posture, coordination, and proprioception or kinesthetic sense, requiring skilled tactile and verbal cues Exercises/techniques: Sit to stand from EOB [id number] Sit to stand from recliner [id number] Stand pivot transfer going from EOB to recliner 5x1set vice versa Standing march [id number] L/R emphasis on hip flexion/knee flexion Standing heel raise [id number] Standing toe raise [id number] SLS 3x 1set L/R 10secs hold Tactile cue for posterior chain activation during standing activity. Side to side bed mobility on the EOB Upward movement in bed 2x second attempt pt able to perform independently. Assessment: Pt reports feeling tired and requested to stay in bed to rest. pt required verbal and tactile cue for proper hand placement during sit to stand transition, pt vey engaged and was working hard on following instructions during therapy session. PLAN: Continue with balance training, global strengthening and general conditioning for improved safety, mobility and activity tolerance until pt is ready for DC. TREATMENT CODE/TIME: [id number], [id number] 25mins (2:45-3:10pm)
[2023-11-12 15:55] VITALS: BP 148/84; PULSE 70; RESP 20; TEMP 36.4; O2SAT 99
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
[2023-11-12] MEDS: Atorvastatin 40 MG TAB 80 MG PO (19:51)
[2023-11-12 23:10] VITALS: BP 145/73; PULSE 75; RESP 20; TEMP 36.5; O2SAT 96
[2023-11-13 03:17] VITALS: BP 151/76; PULSE 71; RESP 18; TEMP 36.2; O2SAT 96
[2023-11-13 07:51] VITALS: BP 135/70; PULSE 81; RESP 18; TEMP 36.4; O2SAT 98
[2023-11-13] MEDS: metFORMIN 500 MG TAB 1000 MG PO ×2 (08:25→17:45)
[2023-11-13] MEDS: Aspirin 81 MG CHEW PO (08:25)
[2023-11-13] MEDS: Methocarbamol 500 MG TAB PO (08:25)
[2023-11-13] MEDS: Docusate Sodium 100 MG CAP PO ×2 (08:25→19:56)
[2023-11-13] MEDS: Clopidogrel 75 MG TAB PO (08:25)
[2023-11-13] MEDS: Normal Saline Flush 10 ML SYR (08:27)
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
--- NOTE | 2023-11-13 11:44 | PTTR_ITS ---
PT Notes Visit Reasons: Stroke Date: 11/13/23 PRECAUTIONS: Fall. Standard. Activity as tolerated. SUBJECTIVE: Pt still in bed sleeping when approached for therapy this morning around 11am, pt reports he has been sleeping the whole time and is ok to wake up and work with therapy. pt agreed to work with therapy again later in the aftern oon. OBJECTIVE: ?IV line on left antecubital? PAIN: none reported VITALS: closely monitored by nursing Therapeutic Activities [id number]: Direct one-on-one instruction in dynamic activities to improve functional performance. ?? BED MOBILITY/TRANSFERS? Rolling L/R: Supervision Supine-sit: Supervision ? Sit-supine: Supervision? Sit-stand: SBA ? Stand-sit: ??SBA ? Bed-Chair:? SBA? Chair-bed: SBA Provided skilled cues and instruction on performance and technique throughout. Gait Training [id number]: Direct one-on-one instruction and skilled instruction in: Employing an assistive device Modified weight-bearing status Movement sequencing Turning and movement with proper form Provided verbal cues for equipment management and technique Provided instruction in gait pattern Patient education regarding pacing and breathing techniques to maximize activity tolerance? GAIT? Assistive Device: FWW ? Weight bearing: FWB Assist: SBA? Distance:??300'x1 (am) ? ? 300'x2 (pm) ? Deviation: ?Stoop forward posture Stairs: 14 step up and down the building stairs standing rest break stair landing step through gait pattern, 1 handrail (am), 14 step up and down the building stairs standing rest break stair landing step through gait pattern, 1 handrail (pm)? Neuromuscular Re-education [id number]: Activities that facilitate re-education of movement balance, posture, coordination, and proprioception or kinesthetic sense, requiring skilled tactile and verbal cues Exercises/techniques: Sit to stand from EOB [id number] Sit to stand from recliner [id number] Stand pivot transfer going from EOB to recliner 5x1set vice versa Standing march [id number] L/R emphasis on hip flexion/knee flexion Standing heel raise [id number] Standing toe raise [id number] SLS 3x 1set L/R 10secs hold Tactile cue for posterior chain activation during standing activity. Side to side bed mobility on the EOB Upward movement in bed pt able to perform independently. Assessment: Pt able to use the toilet to urinate standing prior to going out of pt room (am) pt able to use the toilet to urinate standing after coming back in pt room (pm). PLAN: Continue with balance training, global strengthening and general conditioning for improved safety, mobility and activity tolerance until pt is ready for DC. TREATMENT CODE/TIME: 70474v4, [id number] 25mins (11:11-11:36am) 44746h6, 61883a3 25mins (3:10-3:35pm)
[2023-11-13] MEDS: Insulin Aspart 300 UNITS/3 ML PEN SC ×3 (12:15→21:59)
--- NOTE | 2023-11-13 13:31 | PHA.REVIEW2 ---
Pharmacy Admission Review Admission Clinical Review Admission Pharmacy Review: Goals of care, counseling/discussion (Acute) Advanced care planning/counseling discussion (Acute) LINDSEY (acute kidney injury) (Acute) On deep vein thrombosis (DVT) prophylaxis (Acute) Dysarthria (Acute) Aphasia (Acute) Right hemiparesis (Acute) Discharge planning issues (Acute) tetracycline [Tetracycline] Allergy (Severe, Unverified 11/10/23 21:05) Anaphylaxsis mussels Allergy (Severe, Uncoded 11/10/23 21:05) Anaphylaxsis Resuscitation Status DNR/DNI Height 5 ft 5 in Weight 68.175 kg Pharmacy Admission Review Renal Dosing Renal Dosing: BUN 15 mg/dL (7-18) 11/12/23 05:56 Creatinine 1.2 mg/dL (0.70-1.30) 11/12/23 05:56 Medications needing adjustments: Reviewed (CrCl 48.92 mL/min) Anticoagulation Anticoagulation: Hgb 10.1 g/dL (13.5-17.5) L 11/12/23 05:56 Hct 29.8 % (40.0-50.0) L 11/12/23 05:56 Plt Count 364 10^3/uL (130-400) 11/12/23 05:56 INR 1.1 (0.9-1.1) 11/10/23 21:47 Creatinine 1.2 mg/dL (0.70-1.30) 11/12/23 05:56 DVT Prophylaxis: Reviewed (TEDs) Relevant Labs Relevant Labs: Sodium 141 mmol/L (136-145) 11/12/23 05:56 Potassium 4.0 mmol/L (3.5-5.1) 11/12/23 05:56 Chloride 108 mmol/L (98-107) H 11/12/23 05:56 Magnesium 1.8 mg/dL (1.8-2.4) 11/10/23 21:20 Electrolytes, C-Reactive P, ESR: Reviewed (No new labs for today) DM Control DM Control: Glucose 124 mg/dL (74-106) H 11/12/23 05:56 Hemoglobin A1c 7.4 % (<5.7) H 11/10/23 21:20 Finger Stick Blood Glucose 189 1215 Finger Stick Blood Glucose 189 1146 Finger Stick Blood Glucose 189 1146 Finger Stick Blood Glucose 143 0826 Finger Stick Blood Glucose 143 0756 Finger Stick Blood Glucose 143 0742 Finger Stick Blood Glucose 143 0742 DM Control: Reviewed Insulin Dosing, Diabetic Medication: Has order for sliding scale insulin and metformin Cardiac Review Cardiac Review: Troponin I < 50 ng/L (< or =60) 11/12/23 05:56 BP, HR, EF%: Reviewed (BP and HR WNL) QTc Review QTc: Reviewed (418 from 11/11/23) IV to PO Switch IV Medications: Reviewed Home Meds Home Med List reviewed: Reviewed Relevent Home Meds Not ordered & why?: Simvastatin (has order for atorvastatin - was increased to high intensity this admission) Current Meds Current Medication Order Review: Reviewed
--- NOTE | 2023-11-13 14:25 | PDOC.CMPRO ---
Date of service: 11/13/23 Time of Service: 14:25 Care Management Progress Note Progress Note Text Progress Note Text: S/O: Alejo was sitting up in his chair when CM met with him. He had a friend visiting, who helped support him when he had difficulty finding words. Alejo's friend stated that Alejo plans to go stay with his daughter, Dina, once he is medically cleared. Alejo confirmed this plan and stated that his daughters will be in to visit later; CM attempted to meet with Alejo and his daughters, but they had not arrived yet and Alejo was resting. CM also discussed ordering HH services upon discharge, which Alejo is agreeable to. Alejo met with palliative care yesterday, and will follow up outpatient. CM will continue to follow. A: Alejo is a 77 year old male admitted to [facility] for a stroke. P: Alejo will discharge to his daughter's home when medically cleared via private vehicle. 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 He will follow up with his PCP and plan of care as prescribed. CM following. SDOH(Care Management) Screening Will the Patient Participate in the Screening?: Yes Do you worry about having a steady place to live?: no Problems where you live: no known problems In the past 12 months, have you had to go without electric, gas, oil or water in your home?: no Have you or anyone in your house had to go without enough food to eat?: no Has lack of transportation kept you from medical appointments or from doing things needed for daily living?: no Has anyone in your support network made you feel unsafe for any reason?: no Health Related Social Needs Health related social needs details: might need help from home health due to stroke, unable to be steady on gait.
[2023-11-13 15:01] VITALS: BP 111/67; PULSE 90; RESP 16; TEMP 36.8; O2SAT 97
--- NOTE | 2023-11-13 15:06 | WOUNDCONS ---
Date of service: 11/13/23 Time of Service: 15:06 Wound Initial Evaluation Narrative Narrative: Patient is a 77 year old male brought to the hospital by family for symptoms of stroke. The patient has a previous medical history of stroke with residual expressive aphasia. 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 The patient is limited with explaining treatments that have been tried over the decades, but did verbalize clearly that nothing works. When this television script writer removed the foam border dressing covering the wound, the patient without hesitation dipped his index finger into the purulent exudate and then licked his finger tip with his tongue. This television script writer educated the patient on proper cleaning of the wound and within minutes observed the patient on two more occasions cleaning the exudate from the wound and licking his fingertips. This television script writer is familiar with the patient from an earlier admission on 10/06/18 with the radiation burn and wound open to air present at that time. The chart was reviewed including the H&P, recent labs, vital signs, allergies and previous provider's reports. A photo consent was signed by the patient. The patient is hoping to discharge to a daughter's home with home health services. Wound Abdomen: Wound Type: Radiation Burn Wound General Appearance: Well Approximated, Draining and Bleeding Wound Bed Greatest Portion: Red (Granulation) Wound Surrounding Tissue Appearance: [place], Indurated and Edges Rolled Percent of Wound Bed Granulated/Red: 100 Wound Length: 1.9 cm Wound Width: 2.9 cm Wound Drainage Amount: Moderate Wound Drainage Odor: Foul Odor Wound Drainage Description: Bloody and Purulent Wound Topical Solution/Irrigant: Other (Wound tuckpointer cleaner caulker) Additional Other Comments: A Q-tip was used to wipe away the purulent exudate that was not self-cleaned by the patient. After cleaning with the Q-tip, the wound proceeded to bleed. A square indurated patch with hyperpigmentation changes surrounds the draining wound. Photo Photo: Treatment/Dressing Change Cleanse With: Other (Wound tuckpointer cleaner caulker) Dressing Types: Other (Optifoam Gentle EX Silicone Faced Foam and Border) Nutrition Education Reviewed Nutrition Education: Yes Note: Patient has a carbohydrate and heart healthy diet minced and mildly thick. Recomendation Recomendation:: Remove dressing Q2-3 days and as needed: Clean wound with wound tuckpointer cleaner caulker, pat dry Apply foam border dressing Physcian/Nurse Practioner Notified: Yes Treatment Time Time Total Time Spent with Patient: 45
--- NOTE | 2023-11-13 16:15 | W.SPSTP ---
Date of service: 11/13/23 Time of Service: 16:15 Subjective Alejo contacted during lunchtime this date for dysphagia follow-up. He states he is not feeling any better or worse than yesterday. Agreeable to work with speech therapy for safety strategies during lunch. Objective/Assessment/Plan Objective Treatment Techniques & Outcomes: PO Trials Assessed: IDDSI 2 Mildly Thick Liquid (via cup) x 8-10 sips IDDSI 4 Puree Solid x several oz IDDSI 5 Minced and Moist Solid x 4 bites Oral Phase Findings and feeding behaviors noted: Difficulty with bolus manipulation Difficulty sequencing chewing, breathing, swallowing Difficulty refraining from speaking while chewing/swallowing Difficulty chewing Noted to take additional bites when oral cavity still full, required consistent cueing. Diffuse oral residue with minced/moist Intermittent anterior spillage Pharyngeal Phase Findings: Delayed swallow initiation Cough after swallow with minced/moist x 2 Cough after purees when self-selecting bites without cues for pacing, improved when cues provided for pacing and sequencing. Voice change after swallow? Correction Goals: Patient will remain free from aspiration-related illness, malnutrition, and dehydration. Patient/family will verbalize comprehension of education provided re: dx dysphagia and aphasia strategies to maximize functioning, and role of ST. Short Term Goals: Patient will participate in ongoing diagnostic treatment addressing areas of expressive/receptive language. Patient will tolerate L4 Puree Diet and Mildly thick liquids without overt s/s aspiration across 2/2 visits. IN PROGRESS - requires consistent cueing/assistance for rate/sequencing in order to prevent s/sx aspiration. Patient will tolerate PO trials for consideration of diet upgrade without overt s/s aspiration across 2/2 visits. ?IN PROGRESS - poor tolerance of minced/moist this date. Suspect mastication increases disorganization and posterior spillage resulting in increased airway compromise Assessment Alejo presents with stable moderate oral-pharyngeal dysphagia this date with disorganized, impulsive feeding behaviors and difficulty coordinating and timing oral and pharyngeal phase of swallow. He requires significant amount of cueing to tolerate his current diet and did not tolerate trials of upgraded solids this date. He declined to trial any thin liquids this date. Overall, though aspiration and choking risk are heightened, risk can be mitigated with diet modifications and strict aspiration precautions. - see recommendations below. As Alejo's laryngeal cough reflex appears strongly intact, anticipate he can be upgraded (solids & liquids) at bedside as indicated. Supervision is indicated in light of observed behaviors of rapid and large bolus intake, though given frequent verbal prompting (every 2-3 bites) and occasional tactile prompting (hand over hand to pause next bite), Alejo is able to pause between bites to swallow. No diet changes. Continue with aspiration precautions as below. Plan Plan: PLAN: Frequency: 3-5x/week for 1-2 weeks Recommendation at Discharge: [facility] vs [facility] Services via Home Health Diet Texture Recommendation:? IDDSI LEVEL 4-Pureed Solids LIQUIDS 2-Mildly Thick Liquids MEDICATIONS Whole with 4-Puree Diet texture modification is per patient's preference; please adjust diet textures at patient's discretion & collaboration with care team. Do not alter medications (e.g., cut)? without advice from your MD or pharmacist. Risk Management Strategies:? Small bites, approx [id number] Small sips, approx 10 mL Frequent verbal reminders to pause between each bite and clear oral cavity before taking another Tactile prompting as needed to slow rate of intake (hand over hand to pause feeding and ask to swallow prior to next bite) [place] upright 90 degrees for PO - upright in chair for meals as able Oral hygiene before and after meals Control risk factors for aspiration pneumonia via (a) thorough oral hygiene & (b) maintaining physical mobility as tolerated Time spent: 12:30-13:00 - 30min
--- NOTE | 2023-11-13 18:19 | W.PM.PROGNOT ---
Date of Service Date of service: 11/13/23 Time of Service: 18:19 Assessment and Plan Assessment and plan (1) Stroke: Status: Chronic Assessment and plan: Dysphagia-- modified barium swallow showing aspiration on thin liquids, diet change to thicken liquids with pur?ed Speech therapy recommends cues to pause and swallow between bites. Will continue following. Followed by neurology new left parietal infarct as per MRI with findings of acute infarct involving the left cesar radiata Continue Plavix statin, ASA Continue tele Carotid US : mild to moderate atherosclerosis to both carotids w/o velocity elevation. Vertebral arteries showed antegrade flow Echo with bubble pending MRA head: Multiple areas of less than 50 percent stenosis as described above. 70-80 percent stenosis seen in a left middle cerebral artery M2 segment. Short segment of occlusion in the mid A2 segment of the right anterior cerebral artery with reconstitution distally. MRA neck:No evidence of dissection, occlusion or significant stenosis PT/OT for mild right hemiparesis Speech pathology for dysphagia and aspiration Palliative care (2) Diabetes: Status: Chronic Assessment and plan: Continue glucometers checks AC and HS, ISS, and metformin A1C 7.4 (3) Hypertension: Status: Chronic Assessment and plan: Stable and not requiring any medication (4) LINDSEY (acute kidney injury): Status: Resolved Assessment and plan: Resolved after receiving IV fluid which has been discontinued (5) On deep vein thrombosis (DVT) prophylaxis: Status: Acute Assessment and plan: LEO's (6) Discharge planning issues: Status: Acute Assessment and plan: Case management following anticipated discharge to home with home health services as it sounds like patient would decline [facility] facility Discussed with Dr. Charles Subjective Subjective Patient reports: no new complaints, tolerating liquids well (with thickener), tolerating a regular diet and afebrile; denies shortness of breath Exam Narrative Exam Narrative: Elderly male of stated age no acute distress head is atraumatic. Right-sided facial droop, he is awake alert able to respond appropriately breath with some mild dysarthria, responses are slow neck is supple no JVD cardiovascular regular rate and rhythm respirations even and unlabored breath sounds diminished in the bases abdomen is soft nontender he moves all extremities but mild right-sided weakness. Skin with no rashes or lesions Objective Last Vital Signs Temp 36.8 C 11/13/23 15:01 Pulse 90 11/13/23 15:01 Resp 16 11/13/23 15:01 BP 111/67 11/13/23 15:01 Pulse Ox 97 11/13/23 15:01 Time Spent with Patient Time Spent with Patient: 25-34 minutes Time was spent: preparing to see the patient(eg.review tests), obtaining and/or reviewing separately otained hiistory, ordering medications,tests, procedures, referring, communicating with other health medicare compliance auditor, indepentently interpreting results, counseling the patient and care coordination
[2023-11-13 19:46] VITALS: BP 121/65; PULSE 81; RESP 16; TEMP 36.5; O2SAT 96
[2023-11-13] MEDS: Atorvastatin 40 MG TAB 80 MG PO (19:56)
[2023-11-13] MEDS: Normal Saline Flush 10 ML SYR IVP (19:56)
[2023-11-13 23:19] VITALS: BP 127/80; PULSE 88; RESP 16; TEMP 36.6; O2SAT 96
[2023-11-14 04:31] VITALS: BP 154/92; PULSE 83; RESP 16; TEMP 36.6; O2SAT 97
[2023-11-14 07:54] VITALS: BP 147/74; PULSE 98; RESP 18; TEMP 37; O2SAT 95
[2023-11-14] MEDS: Aspirin 81 MG CHEW PO (09:15)
[2023-11-14] MEDS: Methocarbamol 500 MG TAB PO (09:15)
[2023-11-14] MEDS: Docusate Sodium 100 MG CAP PO ×2 (09:15→21:11)
[2023-11-14] MEDS: Clopidogrel 75 MG TAB PO (09:15)
[2023-11-14] MEDS: metFORMIN 500 MG TAB 1000 MG PO ×2 (09:16→17:35)
--- NOTE | 2023-11-14 10:51 | PT.INTREAT ---
PT Notes Visit Reasons: Stroke Date: 11/14/23 PRECAUTIONS: Fall. Standard. Activity as tolerated. SUBJECTIVE: Pt in recliner eating breakfast on initial approach, pt in room toilet 2nd approached, 3rd attempt pt was available and was lookiung forward to participating with therapy. OBJECTIVE: ?IV line on left antecubital? PAIN: none reported VITALS: closely monitored by nursing Therapeutic Activities 40446v4: Direct one-on-one instruction in dynamic activities to improve functional performance. ?? BED MOBILITY/TRANSFERS? Rolling L/R: Supervision Supine-sit: Supervision ? Sit-supine: Supervision? Sit-stand: SBA ? Stand-sit: ??SBA ? Bed-Chair:? SBA? Chair-bed: SBA Provided skilled cues and instruction on performance and technique throughout. Gait Training [id number]: Direct one-on-one instruction and skilled instruction in: Employing an assistive device Modified weight-bearing status Movement sequencing Turning and movement with proper form Provided verbal cues for equipment management and technique Provided instruction in gait pattern Patient education regarding pacing and breathing techniques to maximize activity tolerance? GAIT? Assistive Device: FWW ? Weight bearing: FWB Assist: SBA? Distance:??300'x1 (am) ? Deviation: ?Stoop forward posture Stairs: 14 step up and down the building stairs standing rest break stair landing step through gait pattern upward, step to gait pattern downwards, 1 handrail ?SBA ? Neuromuscular Re-education 47385h7: Activities that facilitate re-education of movement balance, posture, coordination, and proprioception or kinesthetic sense, requiring skilled tactile and verbal cues Exercises/techniques: Sit to stand from EOB [id number] Sit to stand from recliner [id number] Stand pivot transfer going from EOB to recliner 5x1set vice versa Standing march [id number] L/R emphasis on hip flexion/knee flexion Standing heel raise 44g5pvm Standing toe raise 85y8ejm SLS 3x 1set L/R 10secs hold Tactile cue for posterior chain activation during standing activity. Side to side bed mobility on the EOB Upward movement in bed pt able to perform independently. Assessment: Pt initially unstable during sit to stand from recliner, improves to SBA with consecutive sit to stands. PLAN: Continue with balance training, global strengthening and general conditioning for improved safety, mobility and activity tolerance until pt is ready for DC. TREATMENT CODE/TIME: 02311a9, 09022v7 25mins (10:20-10:45am)
[2023-11-14 11:02] VITALS: BP 136/64; PULSE 85; RESP 18; TEMP 36.5; O2SAT 96
--- NOTE | 2023-11-14 12:00 | W.PM.PROGNOT ---
Date of Service Date of service: 11/14/23 Time of Service: 12:00 Assessment and Plan Assessment and plan (1) CVA (cerebral vascular accident): Status: Chronic Assessment and plan: Dysphagia--tolerating modified diet Speech therapy recommends cues to pause and swallow between bites. Will continue following. Followed by neurology new left parietal infarct as per MRI with findings of acute infarct involving the left cesar radiata Continue Plavix statin, ASA Continue tele Carotid US : mild to moderate atherosclerosis to both carotids w/o velocity elevation. Vertebral arteries showed antegrade flow Echo with bubble pending MRA head: Multiple areas of less than 50 percent stenosis as described above. 70-80 percent stenosis seen in a left middle cerebral artery M2 segment. Short segment of occlusion in the mid A2 segment of the right anterior cerebral artery with reconstitution distally. MRA neck:No evidence of dissection, occlusion or significant stenosis PT/OT for mild right hemiparesis Speech pathology for dysphagia and aspiration Palliative care Qualifiers: CVA mechanism: thrombosis Precerebral and cerebral artery: middle cerebral artery Laterality of affected vessel: left Qualified Code(s): I63.312 - Cerebral infarction due to thrombosis of left middle cerebral artery (2) Diabetes: Status: Chronic Assessment and plan: Continue glucometers checks AC and HS, ISS, and metformin A1C 7.4 (3) Hypertension: Status: Chronic Assessment and plan: Blood pressures are controlled no medications required continue to monitor (4) LINDSEY (acute kidney injury): Status: Resolved Assessment and plan: Resolved after receiving IV fluids (5) On deep vein thrombosis (DVT) prophylaxis: Status: Acute Assessment and plan: LEO's (6) Discharge planning issues: Status: Acute Assessment and plan: CM to f/u: Palliative consult and would like to get the family involved in the decisions as neurology mentioned expressive and some degree of receptive aphasia. Discussed with Dr. Charles Subjective Subjective Patient reports: no new complaints, feels better, tolerating liquids well (with thickener) and tolerating a regular diet Interval history since last seen: Patient progressing well with physical therapy tolerating modified diet Exam Narrative Exam Narrative: Elderly male of stated age no acute distress head is atraumatic. Right-sided facial droop, he is awake alert able to respond appropriately breath with some mild dysarthria, responses are slow neck is supple no JVD cardiovascular regular rate and rhythm respirations even and unlabored breath sounds diminished in the bases abdomen is soft nontender he moves all extremities but mild right-sided weakness. Skin with no rashes or lesions Objective Last Vital Signs Temp 36.5 C 11/14/23 11:02 Pulse 85 11/14/23 11:02 Resp 18 11/14/23 11:02 BP 136/64 11/14/23 11:02 Pulse Ox 96 11/14/23 11:02 Time Spent with Patient Time Spent with Patient: 35-49 minutes Time was spent: preparing to see the patient(eg.review tests), obtaining and/or reviewing separately otained hiistory, indepentently interpreting results, counseling the patient and care coordination
[2023-11-14] MEDS: Insulin Aspart 300 UNITS/3 ML PEN SC (12:22)
[2023-11-14 15:47] VITALS: BP 142/69; PULSE 87; RESP 19; TEMP 36.3; O2SAT 95
[2023-11-14 19:29] VITALS: BP 147/71; PULSE 82; RESP 20; TEMP 37; O2SAT 97
[2023-11-14] MEDS: Atorvastatin 40 MG TAB 80 MG PO (21:11)
[2023-11-14 23:21] VITALS: BP 153/72; PULSE 94; RESP 18; TEMP 36.6; O2SAT 94
[2023-11-15 04:21] VITALS: BP 120/68; PULSE 94; RESP 18; TEMP 36.5; O2SAT 94
[2023-11-15 08:44] VITALS: BP 115/67; PULSE 85; RESP 18; TEMP 36.7; O2SAT 94
[2023-11-15] MEDS: Clopidogrel 75 MG TAB PO (09:13)
[2023-11-15] MEDS: Docusate Sodium 100 MG CAP PO (09:13)
[2023-11-15] MEDS: Methocarbamol 500 MG TAB PO (09:13)
[2023-11-15] MEDS: metFORMIN 500 MG TAB 1000 MG PO (09:13)
[2023-11-15] MEDS: Aspirin 81 MG CHEW PO (09:13)
--- NOTE | 2023-11-15 09:31 | PDOC.CMDIS ---
Date of service: 11/15/23 LACE Index Scoring Tool Questions: Length of Stay (in days): 3 Was the patient admitted via the E.D.?: Yes E.D. Visits: 0 Answers: Total Score: 6 Risk of Readmission: Low Risk Care Management Discharge Plan Reason for Hospitalization: Stroke Discharge Plan: Alejo will discharge to the [facility] in [facility]. He will transport via private vehicle. He will follow up with his PCP and plan of care instructions. He will have new PT,OT,CLOTH DOFFER,speech, and RN services. He will follow up with Dr. Bird for Neurology post stroke care. Patient/Family Education Needs: Review discharge instructions and limitations, discussion of self care needs including Ask Me Three Services Needed at Discharge: Home Health Care Services, Occupational Therapy, Physical Therapy and Speech Therapy SDOH Health Related Social Needs: Health related social needs details might need help from home health due to stroke, unable to be steady on gait. Health related social needs details: might need help from home health due to stroke, unable to be steady on gait.
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
--- NOTE | 2023-11-15 10:01 | PDOC.HHF2F_ITS ---
Home Health Referral Home Health Orders Clinical synopsis of why skilled professionals are needed: Patient sustained a left MCA ischemic CVA and has residual expressive and receptive aphasia along with some mildly dysarthric speech and also sustained right hemiparesis which is improving. Patient needs home health nursing to monitor his stroke recovery help manage his medications coordinate any new orders from his primary care provider or his neurologist. Home physical therapy and Occupational Therapy are requested to assist the patient with his continued rehabilitation at home including strengthening exercises gait exercises balance exercises as well as exercises to improve the patient's own independent ADL performance. Home speech and language pathologist as requested to continue his recovery from his dysarthric speech and dysphagia and expressive aphasia to improve on his communication skills and to prevent aspiration with meals or medications. Please see the inpatient [employer]'s consult note for details. Medical diagnosis necessitation home health referral: Left MCA CVA with expressive and receptive aphasia and dysarthric speech and right hemiparesis, centered retention, diabetes mellitus type 2, hyperlipidemia, gait instability, generalized weakness, impaired ADL performance Registered Nurse: Check all that apply Instruct on new or changed medication(s)/assess compliance: Ordered Assess for exacerbation of medical condition, instruct patient/caregivers on signs and symptoms to report for early detection: Ordered Physical Therapist: Check all that apply Increase strength & endurance for safe mobility at home: Ordered To design/establish home maintenance program: Ordered Fall reduction therapy program for patient with history of frequent falls: Ordered Home safety evaluation and teaching/gait training including stair management (if applicable): Ordered Occupational Therapist: Evaluate and treat for patient unable to perform ADL/IADL/self-care: Ordered Upper extremity strengthening, range and motion: Ordered Speech Therapist: Check all that apply For swallow evaluation/therapy due to dysphagia: Ordered Cognition/memory: Ordered Speech/communication disorders: Ordered Chief Architect: Assist with community resources: Ordered Assist with rodent exterminator care planning: Ordered Home Bound Status Requires the aid of supportive device (check all that apply): Walker Describe why leaving home would require a considerable and taxing effort: Requires frequent rest periods, Confusion and Safety Concerns: describe (Impaired gait and balance increases risk for falls, impaired communication skills limits his ability to communicate his needs.) Encounter Date and Reason: I certify that a FTF encounter for this patient was performed on November 15, 2023 and that such encounter was related to the primary reason the patient requires home health services. The encounter was conducted in the following manner: * By me as the certifying physician, PROGRAMS ASSISTANT, PA or * By an inpatient physician, PROGRAMS ASSISTANT or PA during an inpatient stay who communicated findings to me, Certification And Authentication I certify that I composed the above information based on my clinical judgment relating to this patient's medical condition and, if applicable, clinical findings communicated to me by the NPP or inpatient physician who performed the FTF encounter. Name of Provider that will be monitoring home health services: Savana Del Real
--- NOTE | 2023-11-15 11:27 | PT.INNT ---
PT Notes Visit Reasons: Stroke Pt refuse session this morning, Pt is discharging to home and would like to savehis energy for the trip home.
== END 2023-11-15 13:04 | disposition home health service (06) | DRG 65 ==
LOC: ER 11-11 00:07 → MS 11-11 00:46
PROVIDERS: Family Medicine; Internal Medicine; Nurse Practitioner Acute Care; Admitting Provider General Practice; Emergency Provider Emergency Medicine; PCP Physician Assistant Medical; Visit Provider General Practice
DX: G81.91 Hemiplegia, unspecified affecting right dominant side; N17.9 Acute kidney failure, unspecified; R45.851 Suicidal ideations; T79.2XXA Traumatic secondary and recurrent hemorrhage and seroma, initial encounter; I63.312 Cerebral infarction due to thrombosis of left middle cerebral artery; E11.9 Type 2 diabetes mellitus without complications; I10 Essential (primary) hypertension; Z79.899 Other long term (current) drug therapy; R47.01 Aphasia; R47.1 Dysarthria and anarthria; E78.5 Hyperlipidemia, unspecified; Z86.73 Personal history of transient ischemic attack (TIA), and cerebral infarction without residual deficits; R13.10 Dysphagia, unspecified; M54.9 Dorsalgia, unspecified; F10.10 Alcohol abuse, uncomplicated; R41.3 Other amnesia; Z85.72 Personal history of non-Hodgkin lymphomas; F17.210 Nicotine dependence, cigarettes, uncomplicated; Z91.148 Patient's other noncompliance with medication regimen for other reason; Z79.84 Long term (current) use of oral hypoglycemic drugs; R29.810 Facial weakness; Z66 Do not resuscitate; T21.02XA Burn of unspecified degree of abdominal wall, initial encounter; Y84.2 Radiological procedure and radiotherapy as the cause of abnormal reaction of the patient, or of later complication, without mention of misadventure at the time of the procedure
CPT/HCPCS: 00123; 36415; 36416; 70544; 70547; 80048; 80053; 80061; 80307; 82962; 87637; 92526; 92610; 93005; 97112; 97116; 97162; 97166; 97530; 99285; 70450; 70551; 71046; 74221; 80320; 81003; 81015; 83036; 83735; 84439; 84443; 84484; 85025; 85610; 85730; 93010; 93306; 93880; 99223; 99232; 99233; 99239; J1815

== ENCOUNTER 2023-12-21 08:14 | Outpatient (CLI) | payer MEDICARE, SELFPAY ==
--- NOTE | 2023-12-22 10:37 | W.CARDEVENT ---
Date of service: 12/22/23 Time of Service: 10:37 Cardiac Event Recorder Referring Provider:: Ervin Charles Indications:: TIA Cardiac Event Note: This is a cardiac event recorder ordered because of a transient cerebral ischemic event Patient was monitored for 27 days, 12 hours Rhythm throughout with sinus. Average heart rate was 80. Minimum was 59, maximum 150 There was no atrial fibrillation, no high-grade AV block, no pauses greater than 3 seconds. There were rare atrial premature beats. there were no apparent patient symptoms
== END 2023-12-21 08:15 | disposition home or self-care (01) ==
LOC: CARDOPNVT 08:14
PROVIDERS: PCP Physician Assistant Medical; Visit Provider Internal Medicine Cardiovascular Disease
DX: G45.9 Transient cerebral ischemic attack, unspecified (principal)
CPT/HCPCS: 93270; 93272